=== PATIENT | male | born 1970 | race American Indian/Alaskan Native ===

== ENCOUNTER 2016-06-24 21:10 | Inpatient (IN) | payer OTHER ==
[2016-06-24] MEDS ORDERED: DUONEB 0.5 MG-3 MG/3 ML SOLN IH ONE ×2 (22:35→22:42)
[2016-06-24 23:34] LABS: Basophils % (Auto) 0.4 % (0.0-1.8); Eosinophils % (Auto) 0.1 % (0.0-4.3); Hematocrit 40.5 % (35.5-45.6); Hemoglobin 13.2 gm/dl (11.8-15.2); Mean Corpuscular HGB Conc 33 % (32-34); Mean Corpuscular Hemoglobin 26 pg (28-32); Mean Corpuscular Volume 81 fl (84-94); Platelet Count 222 K/mm3 (140-440); Red Blood Count 5.01 M/mm3 (3.65-5.03); Red Cell Distribution Width 14.6 % (13.2-15.2)
[2016-06-24 23:51] LABS: Anion Gap 19 mmol/L; BUN/Creatinine Ratio 6.66; Blood Urea Nitrogen 8 mg/dL (9-20); Calcium 9.3 mg/dL (8.4-10.2); Carbon Dioxide 27 mmol/L (22-30); Chloride 102.2 mmol/L (98-107); Glucose 98 mg/dL (75-100); Potassium 3.3 mmol/L (3.6-5.0); Sodium 145 mmol/L (137-145)
[2016-06-25 02:52] LABS: Creatine Kinase MB 1.2 ng/mL (0.0-4.0)
[2016-06-25 02:53] LABS: Alanine Aminotransferase 17 units/L (7-56); Albumin 4.3 g/dL (3.9-5); Albumin/Globulin Ratio 1.9 %; Alkaline Phosphatase 77 units/L (35-129); Bilirubin,Total 0.2 mg/dL (0.1-1.2); Creatine Kinase 109 units/L (55-170); Total Protein 6.6 g/dL (6.3-8.2)
[2016-06-25 02:54] LABS: Urine Drugs of Abuse Note Disclamer
[2016-06-25 03:03] LABS: Bilirubin,Urine NEG (Negative); Blood,Urine NEG (Negative); Ketones,Urine TR mg/dL (Negative); Leukocyte Esterase,Urine NEG (Negative); Mucus,Urine FEW /HPF; Nitrite,Urine NEG (Negative); Protein,Urine <15 mg/dL mg/dL (Negative); Urobilinogen,Urine < 2.0 mg/dL (<2.0)
[2016-06-25 03:04] LABS: Bilirubin,Direct < 0.2 mg/dL (0-0.2)
[2016-06-25] MEDS ORDERED: BABY ASPIRIN PO ONE (03:06)
[2016-06-25] MEDS ORDERED: K-DUR PO ONE (04:14)
--- NOTE | 2016-06-25 04:17 | Emergency Department Report ---
<HENRY RASMUSSEN - Last Filed: 06/25/16 04:11> ED Chest Pain HPI - General Chief Complaint: Dyspnea/Respdistress Stated Complaint: CHAD Time Seen by Provider: 06/25/16 01:41 Source: patient Mode of arrival: Ambulatory Limitations: No Limitations - History of Present Illness Initial Comments: 45-year-old male past medical history smoker, active use of crack cocaine, marijuana use presents with complaint of several episodes of chest pain at rest radiating from left sided chest to left arm today. Occurred at least 3-4 times last for several seconds and went away while at rest. Patient denies any associated diaphoresis but did state that he felt that his heart was racing during these episodes. Patient is awake alert and oriented 3 not in acute distress denies any current chest pain at this moment. Patient is accompanied by his mother. Patient denies any aspirin use. Patient states that he has actively been smoking crack cocaine for several years. denies any pleuritic chest pain. Denies any fever or chills. Denies any abdominal pain. Patient states that he gets frequent episodes of chest pain over the last several months but has not been to a doctor regarding this issue. MD Complaint: chest pain Onset/Timin -: days(s) Onset: during rest Pain Location: substernal, left chest Pain Radiation: LUE Severity: moderate Severity scale (0 -10): 0 Consistency: intermittent, now resolved Improves With: nothing Treatments Prior to Arrival: none Aspirin use within the Past 7 Days: (0) No - Related Data On Oral Contraceptives: No Allergies Allergy/AdvReac Type Severity Reaction Status Date / Time No Known Allergies Allergy Verified 06/24/16 21:47 JACEK score - Jacek Score Age > 65: (0) No Aspirin use within the Past 7 Days: (0) No 3 or more CAD Risk Factors: (0) No 2 or more Angina events in past 24 hrs: (1) Yes Known CAD with more than 50% Stenosis: (0) No Elevated Cardiac Markers: (0) No ST Deviation Greater than 0.5mm: (0) No JACEK Score: 1 ED Review of Systems ROS: Stated complaint: CHAD Other details as noted in HPI Constitutional: other. denies: chills, fever Eyes: denies: eye pain, eye discharge, vision change ENT: denies: ear pain, throat pain Respiratory: denies: cough, shortness of breath, wheezing Cardiovascular: chest pain. denies: palpitations Endocrine: no symptoms reported Gastrointestinal: denies: abdominal pain, nausea, diarrhea Genitourinary: denies: urgency, dysuria Musculoskeletal: denies: back pain, joint swelling, arthralgia Skin: denies: rash, lesions Neurological: denies: headache, weakness, paresthesias Psychiatric: denies: anxiety, depression Hematological/Lymphatic: denies: easy bleeding, easy bruising ED Past Medical Hx - Past Medical History Previous Medical History?: No - Surgical History Past Surgical History?: Yes Additional Surgical History: Pelvic Fx, Knot on chest - Social History Smoking Status: Current Every Day Smoker Substance Use Type: Alcohol, Cocaine, Marijuana, Other ED Physical Exam - General Limitations: No Limitations General appearance: alert, in no apparent distress - Head Head exam: Present: atraumatic, normocephalic - Eye Eye exam: Present: normal appearance, PERRL, EOMI - ENT ENT exam: Present: mucous membranes moist - Neck Neck exam: Present: normal inspection, full ROM - Respiratory Respiratory exam: Present: normal lung sounds bilaterally. Absent: respiratory distress - Cardiovascular Cardiovascular Exam: Present: regular rate, normal rhythm. Absent: systolic murmur, diastolic murmur, rubs, gallop - GI/Abdominal GI/Abdominal exam: Present: soft, normal bowel sounds - Rectal Rectal exam: Present: deferred - Extremities Exam Extremities exam: Present: normal inspection - Back Exam Back exam: Present: normal inspection - Neurological Exam Neurological exam: Present: alert, oriented X3, CN II-XII intact, normal gait - Psychiatric Psychiatric exam: Present: normal affect, normal mood - Skin Skin exam: Present: warm, dry, intact, normal color. Absent: rash ED Course Vital Signs 06/24/16 06/24/16 06/24/16 21:47 22:44 22:55 Temperature 98.1 F Pulse Rate 95 H Pulse Rate [ 89 92 H Posterior Bilateral Throughout] Respiratory 20 Rate Respiratory 18 19 Rate [Posterior Bilateral Throughout] Blood Pressure 142/98 [Right] O2 Sat by Pulse 100 Oximetry 06/24/16 06/25/16 06/25/16 23:22 05:40 05:44 Temperature 98 F Pulse Rate 86 77 Pulse Rate [ Posterior Bilateral Throughout] Respiratory 20 20 20 Rate Respiratory Rate [Posterior Bilateral Throughout] Blood Pressure 139/87 134/84 [Right] O2 Sat by Pulse 100 99 98 Oximetry ED Medical Decision Making - Lab Data Result diagrams: 06/24/16 23:11 06/24/16 23:11 - Medical Decision Making A/P: Cocaine induced angina, hypokalemia 1-EKG normal sinus rhythm no STEMI, chest x-ray unremarkable, first set of troponin and CK-MB normal 2-potassium 3.3 we will replete orally 3-I discussed case with Dr. Gee and hospitalist, plan to admit for cocaine induced angina and cardiac workup, patient has not yet had any cardiac workup 4-HEART Score 4 points Moderate Score (4-6 points) Risk of MACE of 12-16.6%. Based on patient's reports of angina 5-patient admitted to telemetry, Dr. Gee updated Critical care attestation.: If time is entered above; I have spent that time in minutes in the direct care of this critically ill patient, excluding procedure time. ED Disposition Clinical Impression: Chest pain, Cocaine abuse Disposition: OP ADMITTED IP TO THIS HOSP Is pt being admited?: Yes Does the pt Need Aspirin: Yes Condition: Stable <KRISS GEE - Last Filed: 06/25/16 06:06> ED Medical Decision Making - Lab Data Result diagrams: 06/24/16 23:11 06/24/16 23:11 ED Disposition Is pt being admited?: Yes Does the pt Need Aspirin: Yes
[2016-06-25] MEDS ORDERED: SODIUM CHLORIDE FLUSH SYRINGE 10 ML IV PRN (08:19)
[2016-06-25] MEDS ORDERED: TYLENOL PO PRN (08:19)
[2016-06-25] MEDS ORDERED: MILK OF MAGNESIA PO PRN (08:19)
[2016-06-25] MEDS ORDERED: DULCOLAX PR PRN (08:19)
[2016-06-25] MEDS ORDERED: MORPHINE IV PRN (08:19)
[2016-06-25] MEDS ORDERED: ZOFRAN IV PRN (08:19)
--- NOTE | 2016-06-25 08:35 | History and Physical Report ---
History of Present Illness Date of examination: 06/25/16 Date of admission: 06/25/16 03:56 Chief complaint: Chest pain History of present illness: Patient 45-year-old male with a history of tobacco abuse and cocaine abuse marijuana use alcohol use presents to the ED with a chief complaint of chest pain lasting for approximately 5-10 minutes rated 8 out of 10 on a scale. Occasionally radiating to the left side of chest associated with some shortness of breath but no diaphoresis no nausea vomiting. Was not associated with exertion. Patient has been having active cocaine smoking. This happened after a binge of cocaine smoking patient also complains of palpitations. Past History Past Medical History: denies: acute PA, atrial fib, anemia, arthritis, CAD, cancer, dialysis, GERD, hepatitis, liver disease, PVD, pulmonary embolism, seizures Past Surgical History: No surgical history Social history: single, smoking, alcohol abuse, full code, other (crack cocaine and marijuana) Family history: no significant family history Medications and Allergies Allergies Allergy/AdvReac Type Severity Reaction Status Date / Time No Known Allergies Allergy Verified 06/24/16 21:47 Active Meds: Active Medications Acetaminophen (Tylenol) 650 mg PO Q4H PRN PRN Reason: Pain MILD(1-3)/Fever >100.5/GOLD Aspirin (Ecotrin) 325 mg PO QDAY [facility] Bisacodyl (Dulcolax) 10 mg AR QDAY PRN PRN Reason: Constipation unrelieved by MOM Enoxaparin Sodium (Lovenox) 40 mg SUB-Q QDAY REPLACED BY [facility] Famotidine (Pepcid) 20 mg IV BID REPLACED BY [facility] Sodium Chloride (Nacl 0.9% 1000 Ml) 1,000 mls @ 100 mls/hr IV DIRECT [facility] Magnesium Hydroxide (Milk Of Magnesia) 30 ml PO Q4H PRN PRN Reason: Constipation Morphine Sulfate (Morphine) 2 mg IV Q4H PRN PRN Reason: Pain, Moderate (4-6) Ondansetron HCl (Zofran) 4 mg IV Q8H PRN PRN Reason: N/V unrelieved by Reglan Sodium Chloride (Sodium Chloride Flush Syringe 10 Ml) 10 ml IV PRN PRN PRN Reason: LINE FLUSH Review of Systems Constitutional: no weight loss, no weight gain, no night sweats, no anorexia, no poor appetite, no chronic pain, no other Ears, nose, mouth and throat: no deferred, no ear pain, no tinnitis, no mouth pain, no post-nasal drip, no headache, no neck fullness/pressure Cardiovascular: chest pain, rapid/irregular heart beat, lightheadedness, shortness of breath, no orthopnea, no palpitations, no edema, no syncope, no dyspnea on exertion, no paroxysmal nocturnal dyspnea, no claudication, no phlebitis, no high blood pressure, no leg edema, no decreased exercise tolerance Respiratory: no cough with sputum, no excessive sputum, no hemoptysis, no shortness of breath, no congestion, no wheezing, no pleurisy, no respiratory infections, no other Gastrointestinal: no abdominal pain, no nausea, no constipation, no change in bowel habits, no hematemesis, no early satiety, no heartburn, no early satiety Genitourinary Male: no hematuria, no urinary frequency, no impotence, no testicular pain, no testicular lump, no difficulties fathering child, no urinary retention Rectal: no pain, no discharge Musculoskeletal: no neck pain, no arm numbness/tingling, no low back pain, no morning stiffness, no muscle cramps, no myalgias, no atrophy, no limitation of motion, no frequent falls, no loss of height, no prior amputations, no arthritis Neurological: no paralysis, no tingling, no vertigo, no headaches, no convulsions, no aphasia, no change in speech, no gait dysfunction, no motor disturbance, no double vision, no loss of vision, no hearing difficulties Psychiatric: no sleep disturbances, no insomnia, no change in appetite Endocrine: no heat intolerance, no polydipsia Hematologic/Lymphatic: no easy bleeding, no lymphadenopathy, no lymphedema, no thrombophilia Allergic/Immunologic: no urticaria, no persistent infections, no gluten intolerance Exam - Constitutional Vitals: Temp Pulse Resp BP Pulse Ox 98.0 F 64 18 139/93 99 06/25/16 06:48 06/25/16 06:48 06/25/16 06:48 06/25/16 06:48 06/25/16 06:48 General appearance: Present: no acute distress, well-nourished - EENT Eyes: Present: PERRL ENT: hearing intact, clear oral mucosa - Neck Neck: Present: supple, normal ROM - Respiratory Respiratory effort: normal Respiratory: bilateral: CTA - Cardiovascular Heart Sounds: Present: S1 & S2. Absent: rub, click - Extremities Extremities: pulses symmetrical, No edema Peripheral Pulses: within normal limits - Abdominal General gastrointestinal: Present: soft, non-tender, non-distended, normal bowel sounds Male genitourinary: Present: normal - Integumentary Integumentary: Present: clear, warm, dry - Musculoskeletal Musculoskeletal: gait normal, strength equal bilaterally - Psychiatric Psychiatric: appropriate mood/affect, intact judgment & insight - Neurologic Neurologic: CNII-XII intact, moves all extremities Results - Labs CBC & Chem 7: 06/24/16 23:11 06/24/16 23:11 Labs: Laboratory Last Values WBC 6.0 K/mm3 (4.5-11.0) 06/24/16 23:11 RBC 5.01 M/mm3 (3.65-5.03) 06/24/16 23:11 Hgb 13.2 gm/dl (11.8-15.2) 06/24/16 23:11 Hct 40.5 % (35.5-45.6) 06/24/16 23:11 MCV 81 fl (84-94) L 06/24/16 23:11 MCH 26 pg (28-32) L 06/24/16 23:11 MCHC 33 % (32-34) 06/24/16 23:11 RDW 14.6 % (13.2-15.2) 06/24/16 23:11 Plt Count 222 K/mm3 (140-440) 06/24/16 23:11 Lymph % (Auto) 35.0 % (13.4-35.0) 06/24/16 23:11 [place] % (Auto) 11.3 % (0.0-7.3) H 06/24/16 23:11 Eos % (Auto) 0.1 % (0.0-4.3) 06/24/16 23:11 Baso % (Auto) 0.4 % (0.0-1.8) 06/24/16 23:11 Lymph # 2.1 K/mm3 (1.2-5.4) 06/24/16 23:11 [place] # 0.7 K/mm3 (0.0-0.8) 06/24/16 23:11 Eos # 0.0 K/mm3 (0.0-0.4) 06/24/16 23:11 Baso # 0.0 K/mm3 (0.0-0.1) 06/24/16 23:11 Seg Neutrophils % 53.2 % (40.0-70.0) 06/24/16 23:11 Seg Neutrophils # 3.2 K/mm3 (1.8-7.7) 06/24/16 23:11 Sodium 145 mmol/L (137-145) 06/24/16 23:11 Potassium 3.3 mmol/L (3.6-5.0) L 06/24/16 23:11 Chloride 102.2 mmol/L (98-107) 06/24/16 23:11 Carbon Dioxide 27 mmol/L (22-30) 06/24/16 23:11 Anion Gap 19 mmol/L 06/24/16 23:11 BUN 8 mg/dL (9-20) L 06/24/16 23:11 Creatinine 1.2 mg/dL (0.8-1.5) 06/24/16 23:11 Estimated GFR > 60 ml/min 06/24/16 23:11 BUN/Creatinine Ratio 6.66 % 06/24/16 23:11 Glucose 98 mg/dL (75-100) 06/24/16 23:11 Calcium 9.3 mg/dL (8.4-10.2) 06/24/16 23:11 Total Bilirubin 0.2 mg/dL (0.1-1.2) 06/25/16 02:17 Direct Bilirubin < 0.2 mg/dL (0-0.2) 06/25/16 02:17 Indirect Bilirubin 0.0 mg/dL 06/25/16 02:17 AST 16 units/L (5-40) 06/25/16 02:17 ALT 17 units/L (7-56) 06/25/16 02:17 Alkaline Phosphatase 77 units/L (35-129) 06/25/16 02:17 Total Creatine Kinase 109 units/L (55-170) 06/25/16 02:17 CK-MB (CK-2) 1.2 ng/mL (0.0-4.0) 06/25/16 02:17 Troponin T < 0.010 ng/mL (0.00-0.029) 06/25/16 02:17 Total Protein 6.6 g/dL (6.3-8.2) 06/25/16 02:17 Albumin 4.3 g/dL (3.9-5) 06/25/16 02:17 Albumin/Globulin Ratio 1.9 % 06/25/16 02:17 Urine Color Yellow (Yellow) 06/25/16 Unknown Urine Turbidity Turbid (Clear) 06/25/16 Unknown Urine pH 6.0 (5.0-7.0) 06/25/16 Unknown Ur Specific [place] 1.020 (1.003-1.030) 06/25/16 Unknown Urine Protein <15 mg/dl mg/dL (Negative) 06/25/16 Unknown Urine Glucose (UA) Neg mg/dL (Negative) 06/25/16 Unknown Urine Ketones Tr mg/dL (Negative) 06/25/16 Unknown Urine Blood Neg (Negative) 06/25/16 Unknown Urine Nitrite Neg (Negative) 06/25/16 Unknown Ur Reducing Substances Not Reportable 06/25/16 Unknown Urine Bilirubin Neg (Negative) 06/25/16 Unknown Urine Ictotest Not Reportable 06/25/16 Unknown Urine Urobilinogen < 2.0 mg/dL (<2.0) 06/25/16 Unknown Ur Leukocyte Esterase Neg (Negative) 06/25/16 Unknown Urine WBC (Auto) 13.0 /HPF (0.0-6.0) H 06/25/16 Unknown Urine RBC (Auto) 21.0 /HPF (0.0-6.0) 06/25/16 Unknown Urine Mucus Few /HPF 06/25/16 Unknown Urine Opiates Screen Presumptive negative 06/25/16 Unknown Urine Methadone Screen Presumptive negative 06/25/16 Unknown Ur Barbiturates Screen Presumptive negative 06/25/16 Unknown Ur Phencyclidine Scrn Presumptive negative 06/25/16 Unknown Ur Amphetamines Screen Presumptive positive 06/25/16 Unknown U Benzodiazepines Scrn Presumptive negative 06/25/16 Unknown Urine Cocaine Screen Presumptive positive 06/25/16 Unknown U Marijuana (THC) Screen Presumptive positive 06/25/16 Unknown Drugs of Abuse Note Disclamer 06/25/16 Unknown - Imaging and Cardiology EKG: image reviewed Chest x-ray: image reviewed Assessment and Plan Advance Directives: Yes VTE prophylaxis?: Chemical Plan of care discussed with patient/family: Yes - Patient Problems (1) Chest pain Current Visit: Yes Status: Acute Qualifiers: Chest pain type: C Plan to address problem: I suspect cocaine induced angina. Unlikely underlying coronary disease. Will bring in stress test echocardiogram. Patient has not had any cardiac workup in the past. Avoid beta marco a morphine for chest pain smoking cessation. (2) Cocaine abuse Current Visit: Yes Status: Acute Plan to address problem: Explained to patient about the high incidence of cocaine abuse and heart disease. Also smoking heart disease. Recommended smoking cessation nicotine patch Narcotics Anonymous.
[2016-06-25] MEDS ORDERED: NACL 0.9% 1000 ML 1,000 ML IV SCH (09:00)
[2016-06-25] MEDS: LOVENOX SUB-Q SCH (10:13)
[2016-06-25] MEDS: PEPCID IV SCH ×2 (10:13→21:31)
--- NOTE | 2016-06-25 12:16 | Admit Criteria Form ---
Admission Criteria Documentation: CARDIOLOGY GRG Clinical Indications for Admission to Inpatient Care ( Place 'X' for any and all applicable criteria): Hospital admission is needed for appropriate care of the patient because of ANY ONE of the following (1): [ ] I. Hemodynamic instability as indicated by ALL of the following (1)(2)(3) (4)(5) [ ]a) Vital signs or other findings not as expected for chronic patient condition or baseline [ ]b) Instability indicated by ANY ONE of the following: [ ]i) Hypotension [ ]ii) Symptomatic Tachycardia unresponsive to treatment ( e.g., analgesia, fluids, sedation as indicated) [ ]iii) Inadequate perfusion indicated by ANY ONE of the following: [ ] 1) Lactic acidosis (> 2 mmol/L) [ ] 2) New abnormal capillary refill (> 3 seconds) [ ] 3) Reduced urine output [ ] 4) New altered mental status [ ]iv) Orthostatic vital sign changes unresponsive to treatment (e.g., fluids) [ ]v) IV inotropic or vasopressor medication required to maintain adequate blood pressure or perfusion [ ] II. Severe heart failure as indicated by ANY ONE of the following(17)(18) [ ]a) Respiratory distress [ ]b) Hypotension [ ]c) Anasarca (refractory to outpatient therapy) [ ]d) Cardiac arrhythmias of immediate concern [ ]e) Myocardial ischemia [ ] III. Cardiac arrhythmias or findings of immediate concern indicated by ANY ONE of the following (19)(20): [ ] a) Heart rhythms that are inherently dangerous or unstable indicated by ANY ONE of the following (21)(22)(23): [ ] i) Resuscitated ventricular fibrillation or cardiac arrest [ ] ii) Ventricular escape rhythm [ ] iii) Sustained ventricular tachycardia (30 seconds or more of ventricular rhythm at greater than 100 beats per minute) [ ] iv) Nonsustained ventricular tachycardia and ANY ONE of the following: [ ] 1) Suspected cardiac ischemia as cause or consequence of ventricular tachycardia [ ] 2) In setting of acute myocarditis [ ] b) Unstable cardiac conduction defects indicated by ANY ONE of the following(23)(24)(25) [ ] i) Type II second-degree atrioventricular block [ ]ii) Third-degree atrioventricular block [ ]iii) New-onset left bundle branch block with suspected myocardial ischemia [ ]c) Any heart rhythm and ANY ONE of the following (21)(22)(26)(27) (28) [ ] i) Continuous long-term ECG monitoring needed (e.g., initiation of drug requiring monitoring for more than 24 hours) [ ] ii) Patient has automatic implanted cardioverter defibrillator that is repeatedly firing, malfunctioning, or in need of immediate adjustment of settings beyond the scope of ambulatory or observation care [ ]d) Heart rhythms of concern due to ANY ONE of the following: [ ] i) Hypotension [ ] ii) Respiratory distress [ ] iii) Association with other significant symptoms (e.g., bradycardia with syncope or ongoing dizziness, supraventricular tachycardia with chest pain (14)(15)(17) [ ] IV. Monitoring for cardiac contusion beyond the scope of observation care needed [A](30)(31)(32) [ ] V. Surgical or device complication (e.g., valve replacement complication , pacemaker dysfunction) (35)(41)(44)(45)(46) [ ] . Inpatient palliative care needed. [B](49) Also use Inpatient Palliative Care Criteria [ ] VII. Nonbacterial thrombotic (marantic) endocarditis (36)(43)(47)(48) [X] VIII. Cardiology condition, symptom, or finding for which emergency and observation care has failed or are not considered appropriate. [ ] IX. Acute valvular disease requiring inpatient as indicated by ANY ONE of the following (41) [ ]a) Acute valvular regurgitation (42) [ ]b) Noninfectious valvulitis (43) [ ]c) Obstructive valve thrombosis [ ]d) Paravalvular leak [ ]e) Other significant valvular disorder remaining after emergency or observation level of care (as appropriate) [ ]X. Pericardial disease requiring inpatient treatment as indicated by ANY ONE of the following (33)(34)(35)(36)(37) [ ]a) Suspected tamponade (38)(39)(40) [ ]b) Hemopericardium [ ]c) Other significant pericardial disorder remaining after emergency or observation level of care (as appropriate) [ ] XI. Cardiac ischemia beyond scope of emergency and observation care. [ ] XII. Hypertension requiring inpatient treatment as indicated by ANY ONE of the following (6)(7)(8) [ ]a) SBP greater than 220 mm Hg or DBP greater than 120 mmHg despite treatment [ ]b) SBP greater than 140 mm Hg or DBP greater than 100 mm Hg with evidence of acute end organ damage as indicated by ANY ONE of the following [ ] i) Altered mental status [ ] ii) Acute renal failure as indicated by new onset of ANY ONE of the following (9)(10)(11)(12)(13) [ ]1) 3-fold rise in serum creatinine from baseline [ ]2) Serum creatinine greater than 4 mg/dL ( 354 micromoles/L) with acute rise greater than 0.5 mg/dL (44.2 micromoles/L) [ ]3) Reduction of more than 75% in estimated glomerular filtration rate from baseline [ ]4) Estimated glomerular filtration rate less than 35 mL/min/1.73m2 (0.59 mL/sec/1.73m2) in child up to 18 years of age [ ]5) Cessation of urine output indicated by ALL of the following [ ]A. Adequate volume status [ ]B. Inadequate urine output as indicated by ANY ONE of the following [ ]a. Urine output less than 0.3 mL/kg/hr for 24 hours [ ]b. Anuria (urine output less than 0.1 mL/kg/hr) for 12 hours [ ] iii) Aortic dissection [ ] iv) Myocardial Ischemia [ ] v) Left ventricular heart failure [ ]vi) Retinal Hemorrhage [ ]vii) Other significant finding [ ]c) Hypertension in child requiring inpatient treatment as indicated by ALL of the following(14)(15)(16) [ ] i) Outpatient treatment not effective, not available, or not appropriate [ ]ii) SBP or DBP greater than 95th percentile for age [ ]iii) Evidence of acute end organ damage as indicated by ANY ONE of the following [ ]1) Altered mental status [ ]2) Acute renal failure as indicated by new onset of ANY ONE of the following(9)(10)(11)(12)(13) [ ]A. 3-fold rise in serum creatinine from baseline [ ]B. Serum creatinine greater than 4 mg/dL (354 micromoles/L) with acute rise greater than 0.5 mg/dL (44.2 micromoles/L) [ ]C. Reduction of more than 75% in estimated glomerular filtration rate from baseline [ ]D. Estimated glomerular filtration rate less than 35 mL/min/1.73m2 (0.59 mL/sec/1.73m2) in child up to 18 years of age [ ]E. Cessation of urine output indicated by ALL of the following [ ]a. Adequate volume status [ ]b. Inadequate urine output as indicated by ANY ONE of the following [ ]i) Urine output less than 0.3 mL/kg/hr for 24 hours [ ]ii) Anuria ( urine output less than 0.1 mL/kg/hr) for 12 hours [ ]3) Severe headache [ ]4) Visual disturbance [ ]5) Retinal hemorrhage [ ]6) Other significant finding [ ]XIII. Complications of transplanted heart indicated by ANY ONE of the following(61): [ ]a) Acute graft rejection requiring inpatient management (eg, intravenous immunosuppression)(62)(63) [ ]b) Acute graft heart failure indicated by ANY ONE of the following(64): [ ]i) Hemodynamic instability [ ]ii) Cardiac arrhythmias of immediate concern [ ]iii) Pulmonary edema that is very severe (eg, mechanical ventilation needed, imminent or likely, need for 100% oxygen to keep oxygen saturation above 90%) [ ]iv) Pulmonary edema that is persistent as indicated by ALL of the following: [ ]1) New need for oxygen therapy to keep oxygen saturation above 90% (or increased FiO2 need from baseline) [ ]2) Has not improved sufficiently with emergency department or observation care IV diuretics or other heart failure treatments[E] [ ]v) Altered mental status that is severe or persistent [ ]vi) Increased creatinine (new on laboratory test) with reduction of more than 50% in estimated glomerular filtration rate from baseline [ ]vii) Progressively (ongoing) rising creatinine (known from past laboratory test) with reduction of more than 25% in estimated glomerular filtration rate from baseline [ ]viii) Acute renal failure [ ]ix) Acute peripheral ischemia (eg, examination shows pulseless, cool, mottled, or cyanotic extremity) [ ]x) Pulmonary artery catheter monitoring needed [ ]xi) Other sign or symptom of heart failure requiring inpatient treatment (ie, too severe or not responsive to outpatient and observation care treatment) [ ]c) Infection requiring inpatient management (eg, Hemodynamic instability, need for intravenous antimicrobial treatment)(66)(67)(68)(69)(70) [ ]d) Cardiac allograft vasculopathy requiring inpatient management ( eg evidence of cardiac ischemia)(71) [ ]e) Other complication of transplanted heart (eg, stroke, severe pulmonary hypertension, severe valvular dysfunction) requiring inpatient management(72) The original [facility] [employer] content created by [facility] has been revised. The portions of the content which have been revised are identified through the use of italic text or in bold, and [facility] has neither reviewed nor approved the modified material. All other unmodified content is copyright [facility] [employer]. Please see references footnoted in the original [facility] [employer] edition 2016 Admission Criteria Met: Yes
[2016-06-25 13:44] LABS: Creatine Kinase MB 1.1 ng/mL (0.0-4.0)
[2016-06-25 13:46] LABS: Creatine Kinase 85 units/L (55-170)
[2016-06-25 15:26] LABS: Creatine Kinase 78 units/L (55-170)
--- NOTE | 2016-06-25 19:29 | Treadmill Report ---
INDICATION FOR PROCEDURE: Chest pain. ORDERING PHYSICIAN: Antony Rodriguez MD FINDINGS: There is no scintigraphic evidence of myocardial ischemia. The left ventricular cavity appears to be borderline dilated. There is mild global left ventricular hypokinesis. The left ventricular ejection fraction is measured at 42%. CONCLUSION: 1. No scintigraphic evidence of myocardial ischemia. 2. Mildly dilated and hypokinetic left ventricle with ejection fraction measured at 42%. Correlation with a transthoracic echocardiogram is warranted. JOB# [id number] SIRISHA/YAMINI
[2016-06-26 07:59] LABS: Alanine Aminotransferase 17 units/L (7-56); Albumin 3.2 g/dL (3.9-5); Albumin/Globulin Ratio 1.1 %; Alkaline Phosphatase 64 units/L (35-129); Anion Gap 13 mmol/L; BUN/Creatinine Ratio 5.45; Bilirubin,Total 0.3 mg/dL (0.1-1.2); Blood Urea Nitrogen 6 mg/dL (9-20); Calcium 8.6 mg/dL (8.4-10.2); Carbon Dioxide 27 mmol/L (22-30); Chloride 104.1 mmol/L (98-107); Glucose 95 mg/dL (75-100); Potassium 4.1 mmol/L (3.6-5.0); Sodium 140 mmol/L (137-145); Total Protein 6.1 g/dL (6.3-8.2)
[2016-06-26] MEDS: PEPCID IV SCH (09:28)
[2016-06-26] MEDS: LOVENOX SUB-Q SCH (09:28)
[2016-06-26] MEDS ORDERED: ECOTRIN PO SCH (10:00)
--- NOTE | 2016-06-26 15:48 | Discharge Summary ---
Providers - Providers Date of Admission: 06/25/16 03:56 Date of discharge: 06/26/16 Attending physician: ARIS KINGSTON 06/25/16 Consult to Cardiac Rehabilitation [CONS] Routine Reason For Exam: Phase I Primary care physician: [facility] Hospitalization Reason for admission: test pain Condition: Good Hospital course: Patient presented to ED after cocaine binge. Patient developed cocaine induced angina. Along with other narcotics marijuana and alcohol tobacco. Patient was brought in has stress tests done which was significant for ejection fraction of 45% but no clear ischemia they recommended DYLAN. Patient was unable to get DYLAN secondary to eating and anxiety. We did had a conference with cardiology and thought it was fair patient can be set up as outpatient echocardiogram. Patient was chest pain-free throughout and ruled out via cardiac isoenzymes and no EKG changes. She was discharged in stable condition patient has been educated that nausea and about stopping all narcotics. And tobacco cessation. Patient we thought could get by without DYLAN. Patient knows if he does more cocaine he would Disposition: DISCHARGED TO HOME OR SELFCARE - Discharge Diagnoses (1) Chest pain Status: Acute Qualifiers: Chest pain type: C Comment: Chest pain-free ruled out for myocardial infarction with cocaine induced angina (2) Cocaine abuse Status: Acute Comment: Narcotics Anonymous tobacco cessation. Core Measure Documentation - Palliative Care Palliative Care/ Comfort Measures: Not Applicable - Core Measures Any of the following diagnoses?: none Exam - Constitutional Vitals: Temp Pulse Resp BP Pulse Ox 97.8 F 79 18 131/80 100 06/26/16 12:00 06/26/16 12:00 06/26/16 12:00 06/26/16 12:00 06/26/16 12:00 General appearance: Present: no acute distress, well-nourished - EENT Eyes: Present: PERRL ENT: hearing intact, clear oral mucosa - Neck Neck: Present: supple, normal ROM - Respiratory Respiratory effort: normal Respiratory: bilateral: CTA - Cardiovascular Heart Sounds: Present: S1 & S2. Absent: rub, click - Extremities Extremities: pulses symmetrical, No edema Peripheral Pulses: within normal limits - Abdominal General gastrointestinal: Present: soft, non-tender, non-distended, normal bowel sounds Male genitourinary: Present: normal - Integumentary Integumentary: Present: clear, warm, dry - Musculoskeletal Musculoskeletal: gait normal, strength equal bilaterally - Psychiatric Psychiatric: appropriate mood/affect, intact judgment & insight - Neurologic Neurologic: CNII-XII intact, moves all extremities Plan Activity: no restrictions Weight Bearing Status: Full Weight Bearing Diet: regular Follow up with: PRIMARY CARE, [Primary Care Provider] - 3-5 Days
[2016-06-26 17:45] VITALS: BP 131/81
[2016-06-26] MEDS ORDERED: PEPCID PO SCH (22:00)
== END 2016-06-26 18:20 | disposition home or self-care (01) | DRG 313 ==
LOC: ED 21:10 → 4A 06-25 03:56
PROVIDERS: ADMIT Internal Medicine; ATTEND Internal Medicine
DX: R07.9 Chest pain, unspecified (principal); F14.10 Cocaine abuse, uncomplicated; F17.200 Nicotine dependence, unspecified, uncomplicated; F10.20 Alcohol dependence, uncomplicated; F41.9 Anxiety disorder, unspecified
CPT/HCPCS: 36415; 71020; 78452; 80048; 80053; 80074; 80307; 81001; 82550; 82553; 84484; 85025; 93005; 93010; 93017; 93306; 94640; 99406; A9502; J1650; J7030

== ENCOUNTER 2020-04-28 12:29 | Inpatient (IN) | payer OTHER ==
--- NOTE | 2020-04-28 12:45 | Event Note ---
ED Screening Note Date of service: 04/28/20 Time: 12:44 ED Screening Note: 49-year-old -Wel[place] male presents to the emergency room for shortness of breath . No loss of taste or smell. It was noted that patient was tachycardic in triage. Review of chart noted that patient had cocaine abuse marijuana abuse and a feta means. Patient also has lower leg swelling both ankles. This initial assessment/diagnostic orders/clinical plan/treatment(s) is/are subject to change based on patients health status, clinical progression and re- assessment by fellow clinical providers in the ED. Further treatment and workup at subsequent clinical providers discretion. Patient/guardian urged not to elope from the ED as their condition may be serious if not clinically assessed and managed. Initial orders include: EKG, CBC CMP and chest x-ray
--- NOTE | 2020-04-28 13:23 | XRay Report ---
CHEST PA AND LATERAL VIEWS INDICATION: sob, cough. COMPARISON: 06/24/2016 FINDINGS: Support devices: None Heart: Borderline enlarged, increased in size from the previous exam. Lungs/Pleura: Today's exam shows pleural-parenchymal disease in the right mid and lower lung, not dolly arent 4 years ago. There also appear to be minimal bilateral pleural effusions. IMPRESSION: 1. Very small bilateral pleural effusions, with minimal parenchymal disease in the right base. Appear ance could be consistent with mild congestive failure or developing pneumonia. Suggest close follow-u p. Signer Name: Lloyd Paul MD Signed: 04/28/2020 1:19 PM Workstation Name: [id number]
[2020-04-28 13:57] LABS: Benzodiazepines Screen,Urine Negative; Cocaine Screen,Urine Negative; Methadone Screen,Urine Negative; Opiate Screen,Urine Negative
[2020-04-28 14:12] LABS: Amphetamine Screen,Urine Positive; Cannabinoid Screen,Urine Positive
[2020-04-28 14:23] LABS: Basophils % (Auto) 0.6 % (0.0-1.8); Eosinophils % (Auto) 0.1 % (0.0-4.3); Hematocrit 45.4 % (35.5-45.6); Hemoglobin 14.9 gm/dl (11.8-15.2); Lymphocytes # (Auto) 1.7 K/mm3 (1.2-5.4); Lymphocytes % (Auto) 25.4 % (13.4-35.0); Mean Corpuscular HGB Conc 33 % (32-34); Mean Corpuscular Volume 84 fl (84-94); Monocytes # (Auto) 0.6 K/mm3 (0.0-0.8); Monocytes % (Auto) 8.6 % (0.0-7.3); Platelet Count 225 K/mm3 (140-440); Red Blood Count 5.39 M/mm3 (3.65-5.03); Red Cell Distribution Width 15.3 % (13.2-15.2)
[2020-04-28 14:47] LABS: Alanine Aminotransferase 95 units/L (7-56); Albumin 3.8 g/dL (3.9-5); BUN/Creatinine Ratio 13; Blood Urea Nitrogen 18 mg/dL (9-20); Calcium 8.8 mg/dL (8.4-10.2); Hemolysis Index 57
--- NOTE | 2020-04-28 20:42 | Emergency Department Report ---
ED Shortness of Breath HPI - General Chief Complaint: Dyspnea/Respdistress Stated Complaint: BREATHING PROBLEMS Time Seen by Provider: 04/28/20 20:13 Source: patient Mode of arrival: Ambulatory Limitations: No Limitations - History of Present Illness Initial Comments: 49-year-old male presents to ED with progressive shortness of breath over the last 2 weeks. Patient also reports bilateral lower extremity swelling. Patient denies any history of congestive heart failure. He reports he has not seen a physician since his last admission here in 2017. Patient does report tobacco and drug use (methamphetamines). Patient reports chest pain at triage, however he now denies any chest pain, only states that he is having dyspnea on exertion. Patient reports cough, denies fever. Denies any loss of smell or taste. MD Complaint: shortness of breath -: week(s) (2) Severity: moderate Consistency: constant Improves With: rest Worsens With: exertion Associated Symptoms: chest pain Treatments Prior to Arrival: none - Related Data Home Oxygen Therapy: No Previous Rx's Medication Instructions Recorded Last Taken Type Aspirin EC [Ecotrin] 325 mg PO QDAY tablet 06/26/16 Unknown Rx Allergies Allergy/AdvReac Type Severity Reaction Status Date / Time No Known Allergies Allergy Verified 06/24/16 21:47 ED Review of Systems ROS: Stated complaint: BREATHING PROBLEMS Other details as noted in HPI Comment: All other systems reviewed and negative Constitutional: denies: chills, fever Respiratory: cough, orthopnea, SOB with exertion Cardiovascular: chest pain Gastrointestinal: denies: nausea, vomiting Musculoskeletal: other (Reports lower extremity edema) ED Past Medical Hx - Past Medical History Previous Medical History?: No Hx Congestive Heart Failure: No Hx Diabetes: No Hx Asthma: No Hx COPD: No - Surgical History Past Surgical History?: Yes Additional Surgical History: Pelvic Fx, Knot on chest - Social History Smoking Status: Current Every Day Smoker Substance Use Type: None - Medications Home Medications: Home Medications Medication Instructions Recorded Confirmed Last Taken Type Aspirin EC [Ecotrin] 325 mg PO QDAY tablet 06/26/16 Unknown Rx ED Physical Exam - General Limitations: No Limitations General appearance: alert, in no apparent distress - Head Head exam: Present: atraumatic, normocephalic - Eye Eye exam: Present: normal appearance, EOMI - ENT ENT exam: Present: mucous membranes moist - Neck Neck exam: Present: normal inspection - Respiratory Respiratory exam: Present: normal lung sounds bilaterally. Absent: respiratory distress - Cardiovascular Cardiovascular Exam: Present: normal rhythm, tachycardia - GI/Abdominal GI/Abdominal exam: Present: soft. Absent: distended, tenderness - Extremities Exam Extremities exam: Present: other (1+ pitting edema bilaterally) - Neurological Exam Neurological exam: Present: alert, oriented X3 - Psychiatric Psychiatric exam: Present: normal affect, normal mood - Skin Skin exam: Present: warm, dry, intact, normal color ED Course Vital Signs 04/28/20 04/28/20 12:40 20:59 Temperature 97.7 F 98.2 F Pulse Rate 110 H 106 H Respiratory 22 18 Rate Blood Pressure 122/84 Blood Pressure 124/87 [Left] O2 Sat by Pulse 100 100 Oximetry ED Medical Decision Making - Lab Data Result diagrams: 04/28/20 13:11 04/28/20 21:37 - EKG Data -: EKG Interpreted by Dc EKG shows normal: sinus rhythm, axis, intervals, QRS complexes, ST-T waves Rate: tachycardia (rate 108) - EKG Data Interpretation: no acute changes - Radiology Data Radiology results: report reviewed, image reviewed - Medical Decision Making 49-year-old male presents to ED with 2-week history of orthopnea, dyspnea on exertion, bilateral lower extremity edema. Patient appears to have new onset CHF, with new cardiomegaly, bilateral pleural effusions, and evidence of pulmonary edema on chest x-ray. BNP is elevated. EKG shows no ST changes. Troponin is negative. Patient given Lasix 40 mg IV. Patient will be admitted to hospitalist, Dr. Curran, for further management. - Differential Diagnosis ACS, pneumonia, CHF Critical care attestation.: If time is entered above; I have spent that time in minutes in the direct care of this critically ill patient, excluding procedure time. ED Disposition Clinical Impression: New onset of congestive heart failure, Chest pain Disposition: [id number] OP ADMIT IP TO THIS HOSP Is pt being admited?: Yes Condition: Stable Time of Disposition: 22:51
[2020-04-28] MEDS ORDERED: FUROSEMIDE 40 MG/4 ML INJ IV ONE (21:53)
[2020-04-28] MEDS ORDERED: MORPHINE 2 MG/1 ML INJ IV PRN (23:43)
[2020-04-28] MEDS ORDERED: ACETAMINOPHEN 325 MG TAB PO PRN (23:43)
[2020-04-28] MEDS ORDERED: MAGNESIUM HYDROXIDE (MOM) ORAL LIQD UDC PO PRN (23:43)
[2020-04-28] MEDS ORDERED: ONDANSETRON 4 MG/2 ML INJ IV PRN (23:43)
--- NOTE | 2020-04-28 23:57 | History and Physical Report ---
History of Present Illness Date of examination: 04/28/20 Date of admission: 04/28/20 22:52 Chief complaint: shortness of Breath Lower extremity swelling History of present illness: 49-year-old male presenting to the emergency room today complaining of shortness of breath for about 2 weeks. He has also been having bilateral lower extremity swelling over the same period of time. He has had occasional cough which is nonproductive. Patient denies any fever or chills, no nausea vomiting, no headache or dizziness, no diaphoresis. He denies any sick contacts and no recent travel. Denies any contact with anyone with COVID-19. Patient indicates that she daily tobacco smoker and also uses methamphetamine. He had some mild chest discomfort upon arrival in the emergency room however chest pain has resolved. Work-up in the emergency room reveals pleural effusion pulmonary edema. Labs were positive for methamphetamine and marijuana. He also had elevated BNP. Patient admitted with CHF - new onset. Past History Past Medical History: No medical history Past Surgical History: No surgical history Social history: smoking (Current daily smoker) Family history: no significant family history Medications and Allergies Allergies Allergy/AdvReac Type Severity Reaction Status Date / Time No Known Allergies Allergy Verified 06/24/16 21:47 Home Medications Medication Instructions Recorded Confirmed Last Taken Type Aspirin EC [Ecotrin] 325 mg PO QDAY tablet 06/26/16 Unknown Rx Active Meds: Active Medications Acetaminophen (Acetaminophen 325 Mg Tab) 650 mg PO Q4H PRN PRN Reason: Pain MILD(1-3)/Fever >100.5/GOLD Furosemide (Furosemide 40 Mg/4 Ml Inj) 40 mg IV BID@0600,1800 [facility] Heparin Sodium (Porcine) (Heparin 5,000 Unit/1 Ml Vial) 5,000 unit SUB-Q Q8HR [facility] Magnesium Hydroxide (Magnesium Hydroxide (Mom) Oral Liqd Udc) 30 ml PO Q4H PRN PRN Reason: Constipation Morphine Sulfate (Morphine 2 Mg/1 Ml Inj) 2 mg IV Q4H PRN PRN Reason: Pain, Moderate (4-6) Ondansetron HCl (Ondansetron 4 Mg/2 Ml Inj) 4 mg IV Q8H PRN PRN Reason: Nausea And Vomiting Sodium Chloride (Sodium Chloride 0.9% 10 Ml Flush Syringe) 10 ml IV BID [place] Sodium Chloride (Sodium Chloride 0.9% 10 Ml Flush Syringe) 10 ml IV PRN PRN PRN Reason: LINE FLUSH Review of Systems Constitutional: no fever, no chills Ears, nose, mouth and throat: no nasal congestion, no sore throat Cardiovascular: orthopnea, leg edema, no chest pain, no palpitations Respiratory: shortness of breath, no cough Gastrointestinal: no abdominal pain, no nausea, no vomiting, no diarrhea Genitourinary Male: no dysuria, no hematuria, no nocturia Musculoskeletal: no neck pain, no low back pain Integumentary: no rash, no pruritis Neurological: no headaches, no confusion Psychiatric: no anxiety, no depression Exam - Constitutional Vitals: Temp Pulse Resp BP Pulse Ox 98.2 F 106 H 18 124/87 100 04/28/20 20:59 04/28/20 20:59 04/28/20 20:59 04/28/20 20:59 04/28/20 20:59 General appearance: Present: no acute distress, well-nourished - EENT Eyes: Present: PERRL, EOM intact. Absent: scleral icterus ENT: hearing intact, clear oral mucosa, dentition normal - Neck Neck: Present: supple, normal ROM - Respiratory Respiratory effort: normal Respiratory: bilateral: rales - Cardiovascular Rhythm: regular Heart Sounds: Present: S1 & S2. Absent: gallop, systolic murmur, diastolic murmur, rub - Extremities Extremities: no ischemia, pulses intact, pulses symmetrical, normal temperature, normal color, Full ROM Extremity abnormal: edema (2+ bilateral lower extremity edema) Peripheral Pulses: within normal limits - Abdominal General gastrointestinal: Present: soft, non-tender, non-distended, normal bowel sounds. Absent: mass - Integumentary Integumentary: Present: clear, warm, dry. Absent: rash - Musculoskeletal Musculoskeletal: strength equal bilaterally - Psychiatric Psychiatric: appropriate mood/affect, intact judgment & insight, memory intact, cooperative - Neurologic Neurologic: CNII-XII intact, no focal deficits, moves all extremities HEART Score - HEART Score Troponin: Troponin T < 0.010 ng/mL (0.00-0.029) 04/28/20 21:37 Results - Labs CBC & Chem 7: 04/28/20 13:11 04/28/20 21:37 Labs: Abnormal lab results 04/28/20 04/28/20 04/28/20 Range/Units 13:11 13:11 13:11 RBC 5.39 H (3.65-5.03) M/mm3 RDW 15.3 H (13.2-15.2) % [place] % (Auto) 8.6 H (0.0-7.3) % Potassium 5.4 H (3.6-5.0) mmol/L Creatinine 1.4 H (0.8-1.3) mg/dL AST 58 H (5-40) units/L ALT 95 H (7-56) units/L NT-Pro-B Natriuret Pep 5653 H (0-900) pg/mL Total Protein 5.8 L (6.3-8.2) g/dL Albumin 3.8 L (3.9-5) g/dL Assessment and Plan - Patient Problems (1) New onset of congestive heart failure Current Visit: Yes Status: Acute Plan to address problem: Patient admitted to telemetry and placed on diuretics. Will monitor inputs and outputs and also monitor daily weight. Patient be scheduled for echocardiogram. We will request cardiology evaluation and recommendation. (2) Chest pain Current Visit: Yes Status: Acute Plan to address problem: Chest pain is resolved however we will check serial cardiac enzymes. We await further evaluation and recommendation by cardiology. (3) Methamphetamine abuse Current Visit: Yes Status: Acute Plan to address problem: Counseled on quitting illicit drug use. (4) Elevated liver enzymes Current Visit: Yes Status: Acute Plan to address problem: We will monitor LFTs. Consult will be placed to gastroenterology for evaluation as needed. (5) DVT prophylaxis Current Visit: Yes Status: Acute Plan to address problem: Patient placed on subcutaneous heparin. (6) Full code status Current Visit: Yes Status: Acute Plan to address problem: Patient is a full code.
[2020-04-29] MEDS: FUROSEMIDE 40 MG/4 ML INJ IV SCH ×2 (05:16→17:36)
[2020-04-29] MEDS: HEPARIN 5,000 UNIT/1 ML VIAL SUB-Q SCH ×3 (05:19→22:14)
[2020-04-29 08:51] LABS: Basophils # (Auto) 0.2 K/mm3 (0.0-0.1); Basophils % (Auto) 2.3 % (0.0-1.8); Eosinophils % (Auto) 0.2 % (0.0-4.3); Hematocrit 47.2 % (35.5-45.6); Hemoglobin 15.5 gm/dl (11.8-15.2); Lymphocytes # (Auto) 2.1 K/mm3 (1.2-5.4); Lymphocytes % (Auto) 31.5 % (13.4-35.0); Mean Corpuscular HGB Conc 33 % (32-34); Mean Corpuscular Volume 84 fl (84-94); Monocytes # (Auto) 0.4 K/mm3 (0.0-0.8); Monocytes % (Auto) 6.6 % (0.0-7.3); Platelet Count 226 K/mm3 (140-440); Red Blood Count 5.65 M/mm3 (3.65-5.03)
[2020-04-29 09:07] LABS: INR 1.21 (0.87-1.13)
[2020-04-29 09:18] LABS: Calcium 8.8 mg/dL (8.4-10.2)
--- NOTE | 2020-04-29 11:40 | Event Note ---
Date: 04/29/20 full consult dictated thx
--- NOTE | 2020-04-29 13:14 | Consultation ---
REFERRING PHYSICIAN: Dr. Lopez. REASON FOR CONSULTATION: ____ shortness of breath, edema. HISTORY OF PRESENT ILLNESS: The patient is a pleasant 49-year-old -[place] gentleman brought to the Emergency Room for shortness of breath for 2 weeks. No COVID-19 contacts. No fevers or chills. States he smokes and uses methamphetamine, some chest pain. Prior to arrival to the Emergency Room, no current chest pain, seen on telemetry. No syncope or presyncope, no abdominal pain, hematochezia, melena or hemoptysis. No skin rashes. No cold or heat intolerance. PAST MEDICAL HISTORY: None known. PAST SURGICAL HISTORY: None known. SOCIAL HISTORY: Smoking and methamphetamine. FAMILY HISTORY: No family history of premature heart disease or sudden cardiac . ALLERGIES: No known allergies. MEDICATIONS: Inpatient and outpatient medications are reviewed. REVIEW OF SYSTEMS: As per HPI. PHYSICAL EXAMINATION: VITAL SIGNS: Blood pressure is 120/80. Tele reveals sinus rhythm in the low 100s. O2 sat is 99% on 2 liters. HEENT: Sclerae are anicteric. PERRL. NECK: Supple, no masses, 2+ JVD. CHEST: Decreased breath sounds at bilateral bases. Overall poor to moderate air movement. CARDIOVASCULAR: Tachy, S1 and S2. ABDOMEN: Soft, nontender. EXTREMITIES: 2+ pitting edema. SKIN: Intact. No rashes. IMAGING STUDIES: Chest x-ray shows small bilateral pleural effusions with enhanced interstitial markings. LABORATORY DATA: First troponin is negative. Positive for marijuana and amphetamines in the urine drug screen. Creatinine is 1.5, sodium is 142, hemoglobin 15.5, hematocrit 47.2, platelets 226. A preliminary look at the echo reveals an EF of 15-20%. The patient was having an echocardiogram performed while I was examining him. ASSESSMENT: In summary, the patient is a pleasant 49-year-old -[place] gentleman. 1. Acute hypoxemic respiratory failure due to acute heart failure, with reduced ejection fraction, ejection fraction found to be 15-20%. The etiology of which is unclear. Continue IV Lasix. Given mildly elevated creatinine, I am hesitant to add FAHAD or ARB. We will add low-dose beta-blockade, continue IV diuresis. Once he is euvolemic, we will consider ischemic workup, stress test versus left heart catheterization. My findings and plan of care discussed at length with the patient. All questions and concerns were addressed. Discussed smoking cessation for some 5 minutes. JOB# [id number] SBM/NTS
[2020-04-29] MEDS: carvediloL 3.125 MG TAB PO SCH ×2 (13:16→22:13)
--- NOTE | 2020-04-29 13:29 | Progress Note ---
Assessment and Plan - Patient Problems (1) New onset of congestive heart failure Current Visit: Yes Status: Acute Plan to address problem: Patient admitted to telemetry and placed on diuretics. Will monitor inputs and outputs and also monitor daily weight. Patient be scheduled for echocardiogram. We will request cardiology evaluation and recommendation. (2) Chest pain Current Visit: Yes Status: Acute Plan to address problem: Chest pain is resolved however we will check serial cardiac enzymes. We await further evaluation and recommendation by cardiology. (3) Methamphetamine abuse Current Visit: Yes Status: Acute Plan to address problem: Counseled on quitting illicit drug use. (4) Elevated liver enzymes Current Visit: Yes Status: Acute Plan to address problem: We will monitor LFTs. Consult will be placed to gastroenterology for evaluation as needed. (5) DVT prophylaxis Current Visit: Yes Status: Acute Plan to address problem: Patient placed on subcutaneous heparin. (6) Full code status Current Visit: Yes Status: Acute Plan to address problem: Patient is a full code. Subjective Date of service: 04/29/20 Principal diagnosis: New onset CHF Interval history: 49-year-old male presenting to the emergency room today complaining of shortness of breath for about 2 weeks. He has also been having bilateral lower extremity swelling over the same period of time. He has had occasional cough which is nonproductive. Patient denies any fever or chills, no nausea vomiting, no headache or dizziness, no diaphoresis. He denies any sick contacts and no recent travel. Denies any contact with anyone with COVID-19. Patient indicates that she daily tobacco smoker and also uses methamphetamine. He had some mild chest discomfort upon arrival in the emergency room however chest pain has resolved. Work-up in the emergency room reveals pleural effusion pulmonary edema. Labs were positive for methamphetamine and marijuana. He also had elevated BNP. Patient admitted with CHF - new onset. 04/29/2020 Symptomatically better Objective - Constitutional Vitals: Vital Signs - 12hr 04/29/20 04/29/20 04/29/20 04:31 08:31 12:26 Temperature 98.4 F 98.6 F 98.6 F Pulse Rate 104 H 108 H 107 H Respiratory 20 22 22 Rate Blood Pressure 137/90 120/84 121/84 O2 Sat by Pulse 100 99 100 Oximetry General appearance: Present: no acute distress, well-nourished - EENT Eyes: PERRL, EOM intact ENT: hearing intact, clear oral mucosa Ears: bilateral: normal - Neck Neck: supple, normal ROM - Respiratory Respiratory effort: normal Respiratory: bilateral: CTA - Breasts Breasts: normal - Cardiovascular Heart rate: 78 Rhythm: regular Heart Sounds: Present: S1 & S2. Absent: gallop, rub Extremities: pulses intact, No edema, normal color, Full ROM - Gastrointestinal General gastrointestinal: Present: soft, non-tender, non-distended, normal bowel sounds - Genitourinary Male genitourinary: normal - Integumentary Integumentary: clear, warm, dry - Musculoskeletal Musculoskeletal: 1, strength equal bilaterally - Neurologic Neurologic: moves all extremities - Psychiatric Psychiatric: memory intact, appropriate mood/affect, intact judgment & insight - Labs CBC & Chem 7: 04/29/20 08:13 04/29/20 08:13 Labs: Abnormal lab results 04/28/20 04/28/20 04/28/20 Range/Units 13:11 13:11 13:11 RBC 5.39 H (3.65-5.03) M/mm3 Hgb (11.8-15.2) gm/dl Hct (35.5-45.6) % RDW 15.3 H (13.2-15.2) % [place] % (Auto) 8.6 H (0.0-7.3) % Baso % (Auto) (0.0-1.8) % Baso # (Auto) (0.0-0.1) K/mm3 PT (12.2-14.9) Sec. INR (0.87-1.13) Potassium 5.4 H (3.6-5.0) mmol/L Creatinine 1.4 H (0.8-1.3) mg/dL AST 58 H (5-40) units/L ALT 95 H (7-56) units/L NT-Pro-B Natriuret Pep 5653 H (0-900) pg/mL Total Protein 5.8 L (6.3-8.2) g/dL Albumin 3.8 L (3.9-5) g/dL 04/29/20 04/29/20 04/29/20 Range/Units 08:13 08:13 08:13 RBC 5.65 H (3.65-5.03) M/mm3 Hgb 15.5 H (11.8-15.2) gm/dl Hct 47.2 H (35.5-45.6) % RDW (13.2-15.2) % [place] % (Auto) (0.0-7.3) % Baso % (Auto) 2.3 H (0.0-1.8) % Baso # (Auto) 0.2 H (0.0-0.1) K/mm3 PT 15.3 H (12.2-14.9) Sec. INR 1.21 H (0.87-1.13) Potassium (3.6-5.0) mmol/L Creatinine 1.5 H (0.8-1.3) mg/dL AST (5-40) units/L ALT (7-56) units/L NT-Pro-B Natriuret Pep (0-900) pg/mL Total Protein (6.3-8.2) g/dL Albumin (3.9-5) g/dL HEART Score - HEART Score Troponin: Troponin T < 0.010 ng/mL (0.00-0.029) 04/28/20 21:37
--- NOTE | 2020-04-29 15:35 | Consultation ---
History of Present Illness - Reason for Consult Consult date: 04/29/20 Abnormal LFTs Requesting physician: ALMA DELIA TRAYLOR - History of Present Illness 49 yo BM, admitted with 2 wk hx of SOB and LE edema. Found to have CHF with LVEF = 15-20%, and also found to have elevated LFTs with AST/ALT = 58/95. Denies prior known hx of liver disease. No hx of IVDA, and no significant recent EtOH. No abd pain, N/V, GI bleed, weight loss. Has no prior known hx of heart dise ase. Meds reviewed. Past History Past Medical History: No medical history Past Surgical History: No surgical history, Other (Hx of pelvic fracture) Social history: smoking (Current daily smoker), alcohol abuse (Several beers/d) Family history: no significant family history Medications and Allergies Allergies Allergy/AdvReac Type Severity Reaction Status Date / Time No Known Allergies Allergy Verified 06/24/16 21:47 Home Medications Medication Instructions Recorded Confirmed Last Taken Type Aspirin EC [Ecotrin] 325 mg PO QDAY tablet 06/26/16 04/29/20 Unknown Rx Active Meds: Active Medications Acetaminophen (Acetaminophen 325 Mg Tab) 650 mg PO Q4H PRN PRN Reason: Pain MILD(1-3)/Fever >100.5/GOLD Carvedilol (Carvedilol 3.125 Mg Tab) 3.125 mg PO BID [facility] Last Admin: 04/29/20 13:16 Dose: 3.125 mg Documented by: Furosemide (Furosemide 40 Mg/4 Ml Inj) 40 mg IV BID@0600,1800 [facility] Last Admin: 04/29/20 05:16 Dose: 40 mg Documented by: Heparin Sodium (Porcine) (Heparin 5,000 Unit/1 Ml Vial) 5,000 unit SUB-Q Q8HR [facility] Last Admin: 04/29/20 13:17 Dose: 5,000 unit Documented by: Magnesium Hydroxide (Magnesium Hydroxide (Mom) Oral Liqd Udc) 30 ml PO Q4H PRN PRN Reason: Constipation Morphine Sulfate (Morphine 2 Mg/1 Ml Inj) 2 mg IV Q4H PRN PRN Reason: Pain, Moderate (4-6) Ondansetron HCl (Ondansetron 4 Mg/2 Ml Inj) 4 mg IV Q8H PRN PRN Reason: Nausea And Vomiting Sodium Chloride (Sodium Chloride 0.9% 10 Ml Flush Syringe) 10 ml IV BID [facility] Last Admin: 04/29/20 10:21 Dose: 10 ml Documented by: Sodium Chloride (Sodium Chloride 0.9% 10 Ml Flush Syringe) 10 ml IV PRN PRN PRN Reason: LINE FLUSH Review of Systems All systems: negative (as per HPI) Exam - Constitutional Vitals: Temp Pulse Resp BP Pulse Ox 98.6 F 107 H 22 121/84 100 04/29/20 12:26 04/29/20 12:04/29/20 12:04/29/20 12:04/29/20 12:26 General appearance: Present: no acute distress - EENT Eyes: Present: PERRL, EOM intact ENT: hearing intact - Neck Neck: Present: supple - Respiratory Respiratory effort: normal Respiratory: bilateral: rales (1/3rd way up bases) - Cardiovascular Rhythm: regular Heart Sounds: Present: S1 & S2 - Extremities Extremity abnormal: edema (1+ LE) - Abdominal General gastrointestinal: Present: soft, non-tender Results - Labs CBC & Chem 7: 04/29/20 08:13 04/29/20 08:13 Labs: Abnormal lab results 04/28/20 04/29/20 04/29/20 Range/Units 13:11 08:13 08:13 RBC 5.65 H (3.65-5.03) M/mm3 Hgb 15.5 H (11.8-15.2) gm/dl Hct 47.2 H (35.5-45.6) % Baso % (Auto) 2.3 H (0.0-1.8) % Baso # (Auto) 0.2 H (0.0-0.1) K/mm3 PT 15.3 H (12.2-14.9) Sec. INR 1.21 H (0.87-1.13) Creatinine (0.8-1.3) mg/dL NT-Pro-B Natriuret Pep 5653 H (0-900) pg/mL 04/29/20 Range/Units 08:13 RBC (3.65-5.03) M/mm3 Hgb (11.8-15.2) gm/dl Hct (35.5-45.6) % Baso % (Auto) (0.0-1.8) % Baso # (Auto) (0.0-0.1) K/mm3 PT (12.2-14.9) Sec. INR (0.87-1.13) Creatinine 1.5 H (0.8-1.3) mg/dL NT-Pro-B Natriuret Pep (0-900) pg/mL Assessment and Plan 1. Elevated transaminases - likely due to congestive hepatopathy. Need to exclude viral hepatitis, though pt denies IVDA (he is urine positive for amphetamines and marijuana). Will also get liver U/S. - hepatitis serologies - RUQ U/S - monitor LFTs while addressing CHF.
[2020-04-30] MEDS: FUROSEMIDE 40 MG/4 ML INJ IV SCH (06:11)
[2020-04-30] MEDS: HEPARIN 5,000 UNIT/1 ML VIAL SUB-Q SCH ×3 (06:11→22:33)
[2020-04-30 09:25] LABS: Albumin 3.6 g/dL (3.9-5); Bilirubin,Direct 0.2 mg/dL (0-0.2)
--- NOTE | 2020-04-30 10:35 | Ultrasound Report ---
ULTRASOUND ABDOMEN, LIMITED (RIGHT UPPER QUADRANT) INDICATION: Abnormal LFTs. COMPARISON: None available. FINDINGS: Pancreas: Visualized portion shows no significant abnormality. Liver: Normal. Gallbladder: Normal. Bile ducts: Normal. Common Bile Duct measures 5 mm. Free fluid: None. Additional Findings: Right pleural effusion. IMPRESSION: 1. No sonographic abnormality of the right upper quadrant. 2. Right pleural effusion. Signer Name: Nicolas Levy MD Signed: 04/30/2020 10:30 AM Workstation Name: [id number]
--- NOTE | 2020-04-30 11:05 | Progress Note ---
Assessment and Plan tte reviewed - EF 15-20%, mild pulm HTN, mild MR. tte from 06/2016 reviewed - EF 40-45%, mild MR. Titrate coreg, no ACEI/ARB in setting of SARAVANAN. Reduce IV lasix to daily dosing. Coronary angiography recommended for further evaluation of cardiomyopathy etiology. Indications, potential risks and benefits of LHC reviewed with pt and he is agreeable to proceed with LHC in AM pending renal function will permit. NPO after MN and f/u BMP in AM. The patient has been seen in conjunction with Dr. Anson Pete who agrees with the assessment and plan of care. - Patient Problems (1) Acute HFrEF (heart failure with reduced ejection fraction) Current Visit: Yes Status: Acute (2) Cardiomyopathy Current Visit: Yes Status: Acute (3) Polysubstance abuse Current Visit: Yes Status: Acute Subjective Date of service: 04/30/20 Principal diagnosis: New onset CHF Interval history: pt resting in bed, SOB improving. tele reviewed - in ST HR 108. Objective Last Vital Signs Temp 97.5 F L 04/30/20 04:42 Pulse 99 H 04/30/20 04:42 Resp 18 04/30/20 04:42 BP 111/81 04/30/20 04:42 Pulse Ox 98 04/30/20 04:42 - Physical Examination General: No Apparent Distress HEENT: Positive: PERRL, Normocephaly, Mucus Membranes Moist Neck: Positive: neck supple, trachea midline Cardiac: Positive: Regular Rhythm, S1/S2 Lungs: Positive: Decreased Breath Sounds Neuro: Positive: Grossly Intact Abdomen: Negative: Tender Skin: Negative: Rash Musculoskeletal: No Pain Extremities: Absent: edema - Labs and Meds Cardiac Enzymes 04/30/20 Range/Units 08:16 AST 40 (5-40) units/L Comprehensive Metabolic Panel 04/30/20 Range/Units 08:16 Direct Bilirubin 0.2 (0-0.2) mg/dL Indirect Bilirubin 0.6 mg/dL AST 40 (5-40) units/L ALT 80 H (7-56) units/L Alkaline Phosphatase 90 (35-129) units/L Total Protein 6.2 L (6.3-8.2) g/dL Albumin 3.6 L (3.9-5) g/dL - Imaging and Cardiology EKG: report reviewed, image reviewed Echo: report reviewed - Telemetry EKG Rhythm: Sinus Rhythm
[2020-04-30] MEDS: carvediloL 3.125 MG TAB PO SCH (11:35)
--- NOTE | 2020-04-30 12:17 | Progress Note ---
Assessment and Plan 1. Elevated transaminases - likely due to congestive hepatopathy, and improved with diuresis. RUQ U/S normal. Need to exclude viral hepatitis, though pt denies IVDA (he is urine positive for amphetamines and marijuana). - f/u hepatitis serologies - monitor LFTs while addressing CHF. Subjective Date of service: 04/30/20 Principal diagnosis: New onset CHF Interval history: Pt feels better. Breathing better. Objective - Constitutional Vitals: Vital Signs - 12hr 04/30/20 04:42 Temperature 97.5 F L Pulse Rate 99 H Respiratory 18 Rate Blood Pressure 111/81 O2 Sat by Pulse 98 Oximetry General appearance: Present: no acute distress - Respiratory Respiratory effort: normal - Gastrointestinal General gastrointestinal: Present: soft, non-tender - Labs CBC & Chem 7: 04/29/20 08:13 04/29/20 08:13 Labs: Abnormal lab results 04/30/20 Range/Units 08:16 ALT 80 H (7-56) units/L Total Protein 6.2 L (6.3-8.2) g/dL Albumin 3.6 L (3.9-5) g/dL Medications & Allergies - Medications Allergies/Adverse Reactions: Allergies No Known Allergies Allergy (Verified 06/24/16 21:47) Home Medications: Home Medications Medication Instructions Recorded Confirmed Last Taken Type Aspirin EC [Ecotrin] 325 mg PO QDAY tablet 06/26/16 04/29/20 Unknown Rx Active Medications: Generic Name Dose Route Start Last Admin Trade Name Freq PRN Reason Stop Dose Admin Acetaminophen 650 mg 04/28/20 23:43 Acetaminophen 325 Mg Tab PO Q4H PRN Pain MILD(1-3)/Fever >100.5/GOLD Carvedilol 3.125 mg 04/29/20 12:00 04/30/20 11:35 Carvedilol 3.125 Mg Tab PO 3.125 mg BID [facility] Administration Furosemide 40 mg 04/29/20 06:00 04/30/20 06:11 Furosemide 40 Mg/4 Ml Inj IV 40 mg BID@0600,1800 [facility] Administration Heparin Sodium (Porcine) 5,000 unit 04/29/20 06:00 04/30/20 06:11 Heparin 5,000 Unit/1 Ml Vial SUB-Q 5,000 unit Q8HR [facility] Administration Magnesium Hydroxide 30 ml 04/28/20 23:43 Magnesium Hydroxide (Mom) Oral Liqd Udc PO Q4H PRN Constipation Morphine Sulfate 2 mg 04/28/20 23:43 Morphine 2 Mg/1 Ml Inj IV Q4H PRN Pain, Moderate (4-6) Ondansetron HCl 4 mg 04/28/20 23:43 Ondansetron 4 Mg/2 Ml Inj IV Q8H PRN Nausea And Vomiting Sodium Chloride 10 ml 04/29/20 10:00 04/29/20 22:14 Sodium Chloride 0.9% 10 Ml Flush Syringe IV 10 ml BID [facility] Administration Sodium Chloride 10 ml 04/28/20 23:43 Sodium Chloride 0.9% 10 Ml Flush Syringe IV PRN PRN LINE FLUSH HEART Score - HEART Score Troponin: Troponin T < 0.010 ng/mL (0.00-0.029) 04/28/20 21:37
[2020-04-30] MEDS ORDERED: SODIUM CHLORIDE 0.9% 500 ML 500 ML IV SCH (14:00)
[2020-04-30] MEDS: carvediloL 6.25 MG TAB PO SCH ×2 (15:22→22:33)
--- NOTE | 2020-05-01 01:28 | Progress Note ---
Assessment and Plan - Patient Problems (1) New onset of congestive heart failure Current Visit: Yes Status: Acute Plan to address problem: Patient admitted to telemetry and placed on diuretics. Will monitor inputs and outputs and also monitor daily weight. Patient be scheduled for echocardiogram. We will request cardiology evaluation and recommendation. Per Cardiology "tte reviewed - EF 15-20%, mild pulm HTN, mild MR. tte from 06/2016 reviewed - EF 40-45%, mild MR. Titrate coreg, no ACEI/ARB in setting of SARAVANAN. Reduce IV lasix to daily dosing. Coronary angiography recommended for further evaluation of cardiomyopathy etiology. Indications, potential risks and benefits of LHC reviewed with pt and he is agreeable to proceed with LHC in AM pending renal function will permit. NPO after MN and f/u BMP in AM. " (2) Chest pain Current Visit: Yes Status: Acute Plan to address problem: Chest pain is resolved however we will check serial cardiac enzymes. We await further evaluation and recommendation by cardiology. (3) Methamphetamine abuse Current Visit: Yes Status: Acute Plan to address problem: Counseled on quitting illicit drug use. (4) Elevated liver enzymes Current Visit: Yes Status: Acute Plan to address problem: We will monitor LFTs. Consult will be placed to gastroenterology for evaluation as needed. (5) DVT prophylaxis Current Visit: Yes Status: Acute Plan to address problem: Patient placed on subcutaneous heparin. (6) Full code status Current Visit: Yes Status: Acute Plan to address problem: Patient is a full code. Subjective Date of service: 04/30/20 Principal diagnosis: New onset CHF Interval history: 49-year-old male presenting to the emergency room today complaining of shortness of breath for about 2 weeks. He has also been having bilateral lower extremity swelling over the same period of time. He has had occasional cough which is nonproductive. Patient denies any fever or chills, no nausea vomiting, no headache or dizziness, no diaphoresis. He denies any sick contacts and no recent travel. Denies any contact with anyone with COVID-19. Patient indicates that she daily tobacco smoker and also uses methamphetamine. He had some mild chest discomfort upon arrival in the emergency room however chest pain has resolved. Work-up in the emergency room reveals pleural effusion pulmonary edema. Labs were positive for methamphetamine and marijuana. He also had elevated BNP. Patient admitted with CHF - new onset. 04/29/2020 Symptomatically better 04/30/20 Sob less Objective - Constitutional Vitals: Vital Signs - 12hr 04/30/20 04/30/20 04/30/20 15:01 16:00 19:55 Temperature 98.8 F 98.8 F Pulse Rate 69 69 101 H Respiratory 18 18 Rate Blood Pressure 122/84 105/77 O2 Sat by Pulse 98 97 Oximetry 04/30/20 04/30/20 05/01/20 22:33 23:30 00:00 Temperature 98.7 F Pulse Rate 101 H 99 H 103 H Respiratory 18 Rate Blood Pressure 105/77 105/70 O2 Sat by Pulse 97 Oximetry General appearance: Present: no acute distress, well-nourished - EENT Eyes: PERRL, EOM intact ENT: hearing intact, clear oral mucosa Ears: bilateral: normal - Neck Neck: supple, normal ROM - Respiratory Respiratory effort: normal Respiratory: bilateral: CTA, rales (scattered ) - Breasts Breasts: normal - Cardiovascular Heart rate: 78 Rhythm: regular Heart Sounds: Present: S1 & S2. Absent: gallop, rub Extremities: pulses intact, No edema, normal color, Full ROM - Gastrointestinal General gastrointestinal: Present: soft, non-tender, non-distended, normal bowel sounds - Genitourinary Male genitourinary: normal - Integumentary Integumentary: clear, warm, dry - Musculoskeletal Musculoskeletal: 1, strength equal bilaterally - Neurologic Neurologic: moves all extremities - Psychiatric Psychiatric: memory intact, appropriate mood/affect, intact judgment & insight - Labs CBC & Chem 7: 04/29/20 08:13 04/29/20 08:13 Labs: Abnormal lab results 04/30/20 04/30/20 Range/Units 08:16 16:09 POC Glucose 111 H (70-105) mg/dL ALT 80 H (7-56) units/L Total Protein 6.2 L (6.3-8.2) g/dL Albumin 3.6 L (3.9-5) g/dL HEART Score - HEART Score Troponin: Troponin T < 0.010 ng/mL (0.00-0.029) 04/28/20 21:37
[2020-05-01 05:33] LABS: Hematocrit 45.3 % (35.5-45.6); Hemoglobin 14.7 gm/dl (11.8-15.2); Mean Corpuscular HGB Conc 32 % (32-34); Mean Corpuscular Volume 85 fl (84-94); Platelet Count 234 K/mm3 (140-440); Red Blood Count 5.35 M/mm3 (3.65-5.03); Red Cell Distribution Width 15.2 % (13.2-15.2)
[2020-05-01 05:35] LABS: INR 1.11 (0.87-1.13)
[2020-05-01 05:51] LABS: Calcium 8.3 mg/dL (8.4-10.2)
[2020-05-01] MEDS: HEPARIN 5,000 UNIT/1 ML VIAL SUB-Q SCH ×3 (06:42→22:43)
[2020-05-01] MEDS ORDERED: ASPIRIN EC 325 MG TAB PO ONE (07:45)
[2020-05-01] MEDS ORDERED: ASPIRIN 325 MG TAB ONE (07:46)
--- NOTE | 2020-05-01 07:46 | Anesthesia Consultation ---
Anesthesia Consult and Med Hx Date of service: 05/01/20 - Airway Anesthetic Teeth Evaluation: Dentures, Partials ROM Head & Neck: Adequate Mental/Hyoid Distance: Adequate Mallampati Class: Class II Intubation Access Assessment: Probably Good - Pre-Operative Health Status ASA Pre-Surgery Classification: ASA3 Proposed Anesthetic Plan: MAC - Pulmonary Hx Smoking: Yes (quit Apr 15, 2020) Hx Asthma: No Hx Respiratory Symptoms: No SOB: No COPD: No Home Oxygen Therapy: No Hx Pneumonia: No Hx Sleep Apnea: Yes - Cardiovascular System Hx Hypertension: Yes Hx Coronary Artery Disease: No Hx Heart Attack/AMI: No Hx Angina: No Hx Percutaneous Transluminal Coronary Angioplasty (PTCA): No Hx Cardia Arrhythmia: No Hx Pacemaker: No Hx Internal Defibrillator: No Hx Valvular Heart Disease: No Hx Heart Murmur: No Hx Peripheral Vascular Disease: No - Central Nervous System Hx Neuromuscular Disorder: No Hx Seizures: No CVA: No Hx Back Pain: No Hx Psychiatric Problems: No - Gastrointestinal Hx Ulcer: No Hx Gastroesophageal Reflux Disease: Yes - Endocrine Hx Renal Disease: No Hx End Stage Renal Disease: No Hx Cirrhosis: No Hx Liver Disease: No Hx Insulin Dependent Diabetes: No Hx Non-Insulin Dependent Diabetes: No Hx Thyroid Disease: No Hx Hypothyroidism: Yes Hx Hyperthyroidism: No - Hematic Hx Anemia: No Hx Sickle Cell Disease: No - Other Systems Hx Alcohol Use: Yes Hx Substance Use: Yes Hx Cancer: No Hx Obesity: Yes
--- NOTE | 2020-05-01 07:47 | Anesthesia Day of Surgery ---
Anesthesia Day of Surgery - Day of Surgery Patient Examined: Yes Patient H&P Reviewed: Yes Patient is NPO: Yes
[2020-05-01] MEDS ORDERED: SODIUM CHLORIDE 0.9% 500 ML 500 ML IV SCH (08:00)
[2020-05-01] MEDS ORDERED: fentaNYL 100 MCG/2 ML INJ ONE (08:07)
[2020-05-01] MEDS ORDERED: MIDAZOLAM 2 MG/2 ML INJ ONE (08:07)
[2020-05-01] MEDS ORDERED: LIDOCAINE (2%) 20 MG/1 ML VIAL 20 ML MDV INFILTRATI ONE (08:07)
[2020-05-01] MEDS ORDERED: HEPARIN/NS 5000 UNIT/500ML 1,000 ML IR ONE (08:07)
[2020-05-01] MEDS ORDERED: VERAPAMIL 5 MG/2 ML INJ ONE (08:07)
[2020-05-01] MEDS ORDERED: HEPARIN 10,000 UNITS/10 ML VIAL ONE (08:07)
[2020-05-01] MEDS: NITROGLYCERIN SYRINGE 3 ML ONE ×2 (08:39→08:40)
--- NOTE | 2020-05-01 09:26 | Cardiac Catherization Report ---
CARDIAC CATHETERIZATION REFERRING PHYSICIAN: Hospitalist service. INDICATION FOR PROCEDURE: The patient is a pleasant 49-year-old -[place] male found to have a severe dilated cardiomyopathy, ejection fraction of approximately 15%, referred for left heart catheterization to assess etiology to exclude coronary artery disease. It should be noted that his creatinine is mildly elevated at 1.5, likely a component of cardiorenal syndrome. We used as little dye as possible. Risks including contrast-induced nephropathy, benefits, alternatives discussed at length prior to obtaining informed consent. PROCEDURE IN DETAIL: The patient was brought to the [facility] laborer in a postabsorptive state, prepped and draped in sterile fashion. Chuckie's test in right hand was normal. A 2 mL of 2% lidocaine used to anesthetize the right wrist. A standard 6-Thai hydrophilic sheath used to cannulate the right radial artery via modified Seldinger technique. All exchanges performed to exchange a J-tip guidewire. JL3.5 catheter was used to engage the left main. No dampening or ventricularization. Cineangiography performed in all projections. JR4 catheter used to cross the aortic valve under fluoroscopic guidance. Left ventriculography performed in 30 BARRETO and 30 SINHALA projections via hand injections, catheter flushed. Manual pullback performed with continuous pressure monitoring. Catheter used to engage the right coronary. No dampening or ventricularization. Cineangiography performed in all projections. Next, catheter removed from the body of wire, sheath removed. Manual pressure used to achieve hemostasis, directly supervised the administration of moderate sedation from 8:30 a.m. to 8:55 a.m. No immediate complications identified. DATA: The patient remained in sinus rhythm throughout the procedure. Aortic pressure is 90/70, LV pressure is 90, LVP of 20 mmHg. Left ventriculography reveals severe dilated globally hypokinetic left ventricle with estimated ejection fraction of 15-20%. CORONARY ANATOMY: Left main without significant disease, bifurcates left anterior descending and left circumflex. Left circumflex is a moderate sized vessel, courses AV groove. No significant disease. LAD is a moderate sized vessel, courses anterior intergroove, wraps around the apex, no significant disease. Right dominant system, right coronary is a moderate sized vessel, courses the AV groove, distally bifurcates in the posterior descending and posterolateral branch. No discrete stenosis noted. CONCLUSIONS: 1. No angiographic evidence of significant epicardial coronary disease in this right dominant system. 2. Severe globally dilated and hypokinetic left ventricle with estimated ejection fraction of 15-20%. 3. No evidence of aortic stenosis. 4. Mildly elevated LVEDP. These findings are consistent with severe dilated nonischemic cardiomyopathy, which is near euvolemia, which is nearly compensated. Continue current medications. We will up titrate low dose beta blockade. Consider LifeVest placement. I had a long discussion with the patient regarding dilated cardiomyopathy findings and so forth. Salt reduction, volume maintenance also discussed. Standard radial care. We will follow along. JOB# [id number] SBMyles/NTS
[2020-05-01] MEDS ORDERED: FUROSEMIDE 40 MG/4 ML INJ IV SCH (10:00)
[2020-05-01] MEDS: carvediloL 6.25 MG TAB PO SCH ×2 (10:01→22:03)
--- NOTE | 2020-05-01 10:25 | Progress Note ---
Assessment and Plan S/p C today which showed normal coronary arteries, EF 15-20%. Cont coreg, no ACEI/ARB in setting of SARAVANAN. Convert IV lasix to PO lasix and f/u BMP in AM. LifeVest recommended in setting of severe NICMP. LifeVest ordered. Will plan to evaluate for AICD candidacy as OP. The patient has been seen in conjunction with Dr. Anson Pete who agrees with the assessment and plan of care. - Patient Problems (1) Acute HFrEF (heart failure with reduced ejection fraction) Current Visit: Yes Status: Acute (2) Nonischemic cardiomyopathy Current Visit: Yes Status: Acute (3) SARAVANAN (acute kidney injury) Current Visit: Yes Status: Acute (4) Polysubstance abuse Current Visit: Yes Status: Acute Subjective Date of service: 05/01/20 Principal diagnosis: New onset CHF Interval history: pt resting in bed, seen s/p C, SOB improved. tele reviewed - in SR HR 90s. Objective Last Vital Signs Temp 98.1 F 05/01/20 07:51 Pulse 97 H 05/01/20 07:51 Resp 18 05/01/20 07:51 BP 100/74 05/01/20 07:51 Pulse Ox 97 05/01/20 07:51 - Physical Examination General: No Apparent Distress HEENT: Positive: PERRL, Normocephaly, Mucus Membranes Moist Neck: Positive: neck supple, trachea midline Cardiac: Positive: Reg Rate and Rhythm, S1/S2 Lungs: Positive: Decreased Breath Sounds Neuro: Positive: Grossly Intact Abdomen: Negative: Tender Skin: Negative: Rash Musculoskeletal: No Pain Extremities: Absent: edema - Labs and Meds Coagulation 05/01/20 Range/Units 04:36 PT 14.2 (12.2-14.9) Sec. INR 1.11 (0.87-1.13) CBC 05/01/20 Range/Units 04:36 WBC 5.4 (4.5-11.0) K/mm3 RBC 5.35 H (3.65-5.03) M/mm3 Hgb 14.7 (11.8-15.2) gm/dl Hct 45.3 (35.5-45.6) % Plt Count 234 (140-440) K/mm3 Comprehensive Metabolic Panel 05/01/20 Range/Units 04:36 Sodium 139 (137-145) mmol/L Potassium 4.0 (3.6-5.0) mmol/L Chloride 104.9 (98-107) mmol/L Carbon Dioxide 23 (22-30) mmol/L BUN 21 H (9-20) mg/dL Creatinine 1.5 H (0.8-1.3) mg/dL Glucose 101 H (75-100) mg/dL Calcium 8.3 L (8.4-10.2) mg/dL - Imaging and Cardiology EKG: report reviewed, image reviewed Echo: report reviewed (tte reviewed - EF 15-20%, mild pulm HTN, mild MR. tte from 06/2016 reviewed - EF 40-45%, mild MR.) - Telemetry EKG Rhythm: Sinus Rhythm
--- NOTE | 2020-05-01 16:44 | Progress Note ---
Assessment and Plan Assessment and plan: --New onset of congestive heart failure Current Visit: Yes Status: Acute Plan to address problem: Echocardiogram; EF 15 to 20%[EF was 40 to 45% in 2017] Input output monitoring, fluid restriction, low-sodium diet IV diuretics, beta-blockers, FAHAD inhibitors, nitrates Cardiology consult, possible ischemia work-up with left heart catheterization today --Severe nonischemic cardiomyopathy; EF 15 to 20% Current Visit: Yes Status: Acute Plan to address problem: IV diuretics, input output monitoring, fluid restriction, LifeVest prior to discharge, outpatient evaluation for ICD placement --Atypical chest pain Current Visit: Yes Status: Acute Plan to address problem: Chest pain is resolved however we will check serial cardiac enzymes. Patient had left heart catheterization today, nonobstructive coronaries Severe dilated cardiomyopathy EF 15 to 20% --Methamphetamine abuse Current Visit: Yes Status: Acute Plan to address problem: Strongly advised to quit recreational drug use -- Elevated liver enzymes Current Visit: Yes Status: Acute Plan to address problem: GI has evaluated the patient elevated LFTs probably secondary to Congested liver, due to CHF Closely monitor -- DVT prophylaxis Current Visit: Yes Status: Acute Plan to address problem: Patient placed on subcutaneous heparin. --Full code status Current Visit: Yes Status: Acute Plan to address problem: Patient is a full code. We will closely monitor the patient and adjust management as needed Plan of care reviewed with the patient and his nurse 05/01/2020; left heart catheterization, nonobstructive coronaries, severe nonischemic dilated cardiomyopathy EF 15 to 20%, cardiology recommending LifeVest and possible outpatient evaluation for ICD placement History Interval history: I have seen and examined the patient at the bedside Patient's chart and medications reviewed Patient complains of generalized weakness and mild shortness of breath Patient has severe cardiomyopathy, ejection fraction of 15 to 20% Vital signs noted Hospitalist Physical - Constitutional Vitals: Temp Pulse Resp BP Pulse Ox 98.0 F 93 H 18 90/63 93 05/01/20 12:13 05/01/20 12:13 05/01/20 12:13 05/01/20 12:13 05/01/20 12:13 General appearance: Present: no acute distress, well-nourished - EENT Eyes: Present: PERRL, EOM intact - Neck Neck: Present: supple, normal ROM - Respiratory Respiratory effort: normal Respiratory: bilateral: diminished, rales, negative: rhonchi, wheezing - Cardiovascular Rhythm: regular Heart Sounds: Present: S1 & S2 - Extremities Extremities: no ischemia Extremity abnormal: edema - Abdominal General gastrointestinal: soft, non-tender, non-distended, normal bowel sounds - Integumentary Integumentary: Present: clear, warm - Psychiatric Psychiatric: appropriate mood/affect, cooperative - Neurologic Neurologic: CNII-XII intact, moves all extremities HEART Score - HEART Score Troponin: Troponin T < 0.010 ng/mL (0.00-0.029) 04/28/20 21:37 Results - Labs CBC & Chem 7: 05/01/20 04:36 05/01/20 04:36 Labs: Laboratory Last Values WBC 5.4 K/mm3 (4.5-11.0) 05/01/20 04:36 RBC 5.35 M/mm3 (3.65-5.03) H 05/01/20 04:36 Hgb 14.7 gm/dl (11.8-15.2) 05/01/20 04:36 Hct 45.3 % (35.5-45.6) 05/01/20 04:36 MCV 85 fl (84-94) 05/01/20 04:36 MCH 27 pg (28-32) L 05/01/20 04:36 MCHC 32 % (32-34) 05/01/20 04:36 RDW 15.2 % (13.2-15.2) 05/01/20 04:36 Plt Count 234 K/mm3 (140-440) 05/01/20 04:36 Lymph % (Auto) 31.5 % (13.4-35.0) 04/29/20 08:13 [place] % (Auto) 6.6 % (0.0-7.3) 04/29/20 08:13 Eos % (Auto) 0.2 % (0.0-4.3) 04/29/20 08:13 Baso % (Auto) 2.3 % (0.0-1.8) H 04/29/20 08:13 Lymph # (Auto) 2.1 K/mm3 (1.2-5.4) 04/29/20 08:13 [place] # (Auto) 0.4 K/mm3 (0.0-0.8) 04/29/20 08:13 Eos # (Auto) 0.0 K/mm3 (0.0-0.4) 04/29/20 08:13 Baso # (Auto) 0.2 K/mm3 (0.0-0.1) H 04/29/20 08:13 Seg Neutrophils % 59.4 % (40.0-70.0) 04/29/20 08:13 Seg Neutrophils # 3.9 K/mm3 (1.8-7.7) 04/29/20 08:13 PT 14.2 Sec. (12.2-14.9) 05/01/20 04:36 INR 1.11 (0.87-1.13) 05/01/20 04:36 Sodium 139 mmol/L (137-145) 05/01/20 04:36 Potassium 4.0 mmol/L (3.6-5.0) 05/01/20 04:36 Chloride 104.9 mmol/L (98-107) 05/01/20 04:36 Carbon Dioxide 23 mmol/L (22-30) 05/01/20 04:36 Anion Gap 15 mmol/L 05/01/20 04:36 BUN 21 mg/dL (9-20) H 05/01/20 04:36 Creatinine 1.5 mg/dL (0.8-1.3) H 05/01/20 04:36 Estimated GFR 60 ml/min 05/01/20 04:36 BUN/Creatinine Ratio 14 % 05/01/20 04:36 Glucose 101 mg/dL (75-100) H 05/01/20 04:36 POC Glucose 101 mg/dL (70-105) 05/01/20 06:30 Calcium 8.3 mg/dL (8.4-10.2) L 05/01/20 04:36 Total Bilirubin 0.80 mg/dL (0.1-1.2) 04/30/20 08:16 Direct Bilirubin 0.2 mg/dL (0-0.2) 04/30/20 08:16 Indirect Bilirubin 0.6 mg/dL 04/30/20 08:16 AST 40 units/L (5-40) 04/30/20 08:16 ALT 80 units/L (7-56) H 04/30/20 08:16 Alkaline Phosphatase 90 units/L (35-129) 04/30/20 08:16 Troponin T < 0.010 ng/mL (0.00-0.029) 04/28/20 21:37 NT-Pro-B Natriuret Pep 5653 pg/mL (0-900) H 04/28/20 13:11 Total Protein 6.2 g/dL (6.3-8.2) L 04/30/20 08:16 Albumin 3.6 g/dL (3.9-5) L 04/30/20 08:16 Albumin/Globulin Ratio 1.4 % 04/30/20 08:16 Urine Opiates Screen Negative 04/28/20 13:39 Urine Methadone Screen Negative 04/28/20 13:39 Ur Barbiturates Screen Negative 04/28/20 13:39 Ur Phencyclidine Scrn Negative 04/28/20 13:39 Ur Amphetamines Screen Positive 04/28/20 13:39 U Benzodiazepines Scrn Negative 04/28/20 13:39 Urine Cocaine Screen Negative 04/28/20 13:39 U Marijuana (THC) Screen Positive 04/28/20 13:39 Drugs of Abuse Note Disclamer 04/28/20 13:39 - Diagnostic Impressions Diagnostic Impressions: Echocardiogram 04/28/20 23:47 Transthoracic Echocardiogram Indication: Evaluate LV Function BP: 120/84 Conclusions *Global left ventricular systolic function is severely decreased. *The estimated ejection fraction is 15-20%. *The left ventricular size is mild to moderately dilated. *There is evidence of mild pulmonary hypertension. *There is mild mitral regurgitation. *There is no pericardial effusion. Findings Left Ventricle: The left ventricular size is mild to moderately dilated. There are multiple regional wall motion abnormalities. Global left ventricular systolic function is severely decreased. The estimated ejection fraction is 15-20%. Abnormal left ventricular diastolic function is observed. Left Atrium: The left atrium is normal in size with no visual thrombus identified. Right Ventricle: The right ventricular cavity size is normal. The right ventricular global systolic function is moderately reduced. Right Atrium: The right atrium is moderately dilated. The interatrial septum appears normal. Aortic Valve: The aortic valve structure is normal. There is no evidence of aortic regurgitation. There is no evidence of aortic stenosis. Mitral Valve: There is mild mitral regurgitation. There is no evidence of mitral stenosis. Tricuspid Valve: There is moderate tricuspid regurgitation. The tricuspid regurgitant jet is eccentric. The right ventricular systolic pressure is calculated at 35 mmHg. There is evidence of mild pulmonary hypertension. There is no tricuspid stenosis. Pulmonic Valve: There is mild pulmonic regurgitation. There is no pulmonic stenosis. Pericardium: There is no pericardial effusion. Aorta: There is no dilatation of the aortic root. Measurements Chambers MM Name Value Normal Range Ao root diameter (MM) 3.2 cm (2 - 3.7) LA dimension (AP) MM 3.5 cm (1.9 - 4) LA:Ao ratio (MM) 1.09 ratio - AV cusp separation (MM) 2 cm (1.5 - 2.6) Chambers 2D Name Value Normal Range RVIDd (AP) 2D 2.58 cm (0.9 - 2.6) IVSd (2D) 0.94 cm (0.6 - 1.1) LVPWd (2D) 0.84 cm (0.6 - 1.1) IVS:LVPW ratio (2D) 1.11 ratio - LVIDd (2D) 6.24 cm (3.7 - 5.6) LVIDs (2D) 5.7 cm (2 - 3.8) LV FS (Teichholz) (2D) 8.65 % - LV FS (cube) (2D) 8.65 % - EF Teichholz (2D) 18.8 % - Ao root diameter (2D) 2.7 cm (2 - 3.7) LA dimension (AP) 2D 3.6 cm (1.9 - 4) LA:Ao ratio (2D) 1.33 ratio - Volumes/Mass Name Value Normal Range LA ESV SP 4CH (MOD) 66 ml - LA ESV SP 2CH (MOD) 89 ml - LA ESV BP (MOD) 78 ml - LA ESV BP (MOD) index 37 ml/m2 - Diastolic/Systolic Function Name Value Normal Range MV E-wave Vmax 0.9 m/sec - MV A-wave Vmax 0.46 m/sec - MV E:A ratio 2 ratio - LV septal e' Vmax 0.07 m/sec - LV lateral e' Vmax 0.06 m/sec - LV E:e' septal ratio 12.4 ratio - LV E:e' lateral ratio 15.7 ratio - Aortic Valve Name Value Normal Range AV VTI 13.4 cm - AV mean gradient 3 mmHg - LVOT diameter 2 cm - LVOT VTI 8.6 cm - LVOT mean gradient 1 mmHg - SV LVOT 27 ml - AMANDA (continuity VTI) 2.02 cm2 - Tricuspid Valve Name Value Normal Range TR Vmax 2.84 m/sec - TR peak gradient 32 mmHg - RAP 3 mmHg - RVSP 35 mmHg - Pulmonic Valve/Qp:Qs Name Value Normal Range PV Vmax 0.77 m/sec - PV peak gradient 2 mmHg - MO end-diastolic Vmax 1.6 m/sec - Raymond/IV: Voiding Method Urinal IV Catheter Type [Left Hand] INT / Saline Lock Active Medications - Current Medications Current Medications: Generic Name Dose Route Start Last Admin Trade Name Freq PRN Reason Stop Dose Admin Acetaminophen 650 mg 04/28/20 23:43 Acetaminophen 325 Mg Tab PO Q4H PRN Pain MILD(1-3)/Fever >100.5/GOLD Carvedilol 6.25 mg 04/30/20 14:00 05/01/20 10:01 Carvedilol 6.25 Mg Tab PO 6.25 mg BID ELMER Administration Furosemide 40 mg 05/02/20 10:00 Furosemide 40 Mg Tab PO QDAY ELMER Heparin Sodium (Porcine) 5,000 unit 04/29/20 06:00 05/01/20 14:12 Heparin 5,000 Unit/1 Ml Vial SUB-Q Not Given Q8HR ELMER Sodium Chloride 500 mls @ 50 mls/hr 05/01/20 08:00 05/01/20 08:02 Nacl 0.9% 500 Ml IV 05/01/20 23:00 50 mls/hr DIRECT ELMER Administration Magnesium Hydroxide 30 ml 04/28/20 23:43 Magnesium Hydroxide (Mom) Oral Liqd Udc PO Q4H PRN Constipation Morphine Sulfate 2 mg 04/28/20 23:43 Morphine 2 Mg/1 Ml Inj IV Q4H PRN Pain, Moderate (4-6) Ondansetron HCl 4 mg 04/28/20 23:43 Ondansetron 4 Mg/2 Ml Inj IV Q8H PRN Nausea And Vomiting Sodium Chloride 10 ml 04/29/20 10:00 05/01/20 10:01 Sodium Chloride 0.9% 10 Ml Flush Syringe IV 10 ml BID ELMER Administration Sodium Chloride 10 ml 04/28/20 23:43 Sodium Chloride 0.9% 10 Ml Flush Syringe IV PRN PRN LINE FLUSH
[2020-05-02] MEDS: HEPARIN 5,000 UNIT/1 ML VIAL SUB-Q SCH ×3 (05:53→21:33)
[2020-05-02 06:28] LABS: Calcium 8.2 mg/dL (8.4-10.2)
--- NOTE | 2020-05-02 08:17 | Progress Note ---
Assessment and Plan Assessment and plan: --New onset of congestive heart failure Current Visit: Yes Status: Acute Plan to address problem: Echocardiogram; EF 15 to 20%[EF was 40 to 45% in 2017] Input output monitoring, fluid restriction, low-sodium diet IV diuretics, beta-blockers, FAHAD inhibitors, nitrates Cardiology consult, possible ischemia work-up with left heart catheterization today --Severe nonischemic cardiomyopathy; EF 15 to 20% Current Visit: Yes Status: Acute Plan to address problem: IV diuretics, input output monitoring, fluid restriction, LifeVest prior to discharge, outpatient evaluation for ICD placement --Atypical chest pain Current Visit: Yes Status: Acute Plan to address problem: Chest pain is resolved however we will check serial cardiac enzymes. Patient had left heart catheterization today, nonobstructive coronaries Severe dilated cardiomyopathy EF 15 to 20% --Methamphetamine abuse Current Visit: Yes Status: Acute Plan to address problem: Strongly advised to quit recreational drug use -- Elevated liver enzymes Current Visit: Yes Status: Acute Plan to address problem: GI has evaluated the patient elevated LFTs probably secondary to Congested liver, due to CHF Closely monitor -- DVT prophylaxis Current Visit: Yes Status: Acute Plan to address problem: Patient placed on subcutaneous heparin. --Full code status Current Visit: Yes Status: Acute Plan to address problem: Patient is a full code. We will closely monitor the patient and adjust management as needed Plan of care reviewed with the patient and his nurse 05/01/2020; left heart catheterization, nonobstructive coronaries, severe nonischemic dilated cardiomyopathy EF 15 to 20%, cardiology recommending LifeVest and possible outpatient evaluation for ICD placement 05/02/2020; patient feels better, awaiting LifeVest prior to discharge Cardiology recommendations noted and appreciated Plan of care reviewed with the patient and his nurse History Interval history: I have seen and examined the patient at the bedside Patient's chart and medications reviewed Patient feels slightly better Awaiting LifeVest prior to discharge No new complaints Hospitalist Physical - Constitutional Vitals: Temp Pulse Resp BP Pulse Ox 98.7 F 101 H 20 101/67 95 05/02/20 04:54 05/02/20 04:54 05/02/20 04:54 05/02/20 04:54 05/02/20 04:54 General appearance: Present: no acute distress, well-nourished - EENT Eyes: Present: PERRL, EOM intact - Neck Neck: Present: supple, normal ROM - Respiratory Respiratory effort: normal Respiratory: bilateral: diminished, rales, negative: rhonchi, wheezing - Cardiovascular Rhythm: regular Heart Sounds: Present: S1 & S2 - Extremities Extremities: no ischemia Extremity abnormal: edema - Abdominal General gastrointestinal: soft, non-tender, non-distended, normal bowel sounds - Integumentary Integumentary: Present: clear, warm - Psychiatric Psychiatric: appropriate mood/affect, cooperative - Neurologic Neurologic: moves all extremities HEART Score - HEART Score Troponin: Troponin T < 0.010 ng/mL (0.00-0.029) 04/28/20 21:37 Results - Labs CBC & Chem 7: 05/01/20 04:36 05/02/20 05:34 Labs: Laboratory Last Values WBC 5.4 K/mm3 (4.5-11.0) 05/01/20 04:36 RBC 5.35 M/mm3 (3.65-5.03) H 05/01/20 04:36 Hgb 14.7 gm/dl (11.8-15.2) 05/01/20 04:36 Hct 45.3 % (35.5-45.6) 05/01/20 04:36 MCV 85 fl (84-94) 05/01/20 04:36 MCH 27 pg (28-32) L 05/01/20 04:36 MCHC 32 % (32-34) 05/01/20 04:36 RDW 15.2 % (13.2-15.2) 05/01/20 04:36 Plt Count 234 K/mm3 (140-440) 05/01/20 04:36 Lymph % (Auto) 31.5 % (13.4-35.0) 04/29/20 08:13 [place] % (Auto) 6.6 % (0.0-7.3) 04/29/20 08:13 Eos % (Auto) 0.2 % (0.0-4.3) 04/29/20 08:13 Baso % (Auto) 2.3 % (0.0-1.8) H 04/29/20 08:13 Lymph # (Auto) 2.1 K/mm3 (1.2-5.4) 04/29/20 08:13 [place] # (Auto) 0.4 K/mm3 (0.0-0.8) 04/29/20 08:13 Eos # (Auto) 0.0 K/mm3 (0.0-0.4) 04/29/20 08:13 Baso # (Auto) 0.2 K/mm3 (0.0-0.1) H 04/29/20 08:13 Seg Neutrophils % 59.4 % (40.0-70.0) 04/29/20 08:13 Seg Neutrophils # 3.9 K/mm3 (1.8-7.7) 04/29/20 08:13 PT 14.2 Sec. (12.2-14.9) 05/01/20 04:36 INR 1.11 (0.87-1.13) 05/01/20 04:36 Sodium 140 mmol/L (137-145) 05/02/20 05:34 Potassium 4.1 mmol/L (3.6-5.0) 05/02/20 05:34 Chloride 104.9 mmol/L (98-107) 05/02/20 05:34 Carbon Dioxide 26 mmol/L (22-30) 05/02/20 05:34 Anion Gap 13 mmol/L 05/02/20 05:34 BUN 19 mg/dL (9-20) 05/02/20 05:34 Creatinine 1.5 mg/dL (0.8-1.3) H 05/02/20 05:34 Estimated GFR 60 ml/min 05/02/20 05:34 BUN/Creatinine Ratio 13 % 05/02/20 05:34 Glucose 89 mg/dL (75-100) 05/02/20 05:34 POC Glucose 101 mg/dL (70-105) 05/01/20 06:30 Calcium 8.2 mg/dL (8.4-10.2) L 05/02/20 05:34 Total Bilirubin 0.80 mg/dL (0.1-1.2) 04/30/20 08:16 Direct Bilirubin 0.2 mg/dL (0-0.2) 04/30/20 08:16 Indirect Bilirubin 0.6 mg/dL 04/30/20 08:16 AST 40 units/L (5-40) 04/30/20 08:16 ALT 80 units/L (7-56) H 04/30/20 08:16 Alkaline Phosphatase 90 units/L (35-129) 04/30/20 08:16 Troponin T < 0.010 ng/mL (0.00-0.029) 04/28/20 21:37 NT-Pro-B Natriuret Pep 5653 pg/mL (0-900) H 04/28/20 13:11 Total Protein 6.2 g/dL (6.3-8.2) L 04/30/20 08:16 Albumin 3.6 g/dL (3.9-5) L 04/30/20 08:16 Albumin/Globulin Ratio 1.4 % 04/30/20 08:16 Urine Opiates Screen Negative 04/28/20 13:39 Urine Methadone Screen Negative 04/28/20 13:39 Ur Barbiturates Screen Negative 04/28/20 13:39 Ur Phencyclidine Scrn Negative 04/28/20 13:39 Ur Amphetamines Screen Positive 04/28/20 13:39 U Benzodiazepines Scrn Negative 04/28/20 13:39 Urine Cocaine Screen Negative 04/28/20 13:39 U Marijuana (THC) Screen Positive 04/28/20 13:39 Drugs of Abuse Note Disclamer 04/28/20 13:39 - Diagnostic Impressions Diagnostic Impressions: Echocardiogram 04/28/20 23:47 Transthoracic Echocardiogram Indication: Evaluate LV Function BP: 120/84 Conclusions *Global left ventricular systolic function is severely decreased. *The estimated ejection fraction is 15-20%. *The left ventricular size is mild to moderately dilated. *There is evidence of mild pulmonary hypertension. *There is mild mitral regurgitation. *There is no pericardial effusion. Findings Left Ventricle: The left ventricular size is mild to moderately dilated. There are multiple regional wall motion abnormalities. Global left ventricular systolic function is severely decreased. The estimated ejection fraction is 15-20%. Abnormal left ventricular diastolic function is observed. Left Atrium: The left atrium is normal in size with no visual thrombus identified. Right Ventricle: The right ventricular cavity size is normal. The right ventricular global systolic function is moderately reduced. Right Atrium: The right atrium is moderately dilated. The interatrial septum appears normal. Aortic Valve: The aortic valve structure is normal. There is no evidence of aortic regurgitation. There is no evidence of aortic stenosis. Mitral Valve: There is mild mitral regurgitation. There is no evidence of mitral stenosis. Tricuspid Valve: There is moderate tricuspid regurgitation. The tricuspid regurgitant jet is eccentric. The right ventricular systolic pressure is calculated at 35 mmHg. There is evidence of mild pulmonary hypertension. There is no tricuspid stenosis. Pulmonic Valve: There is mild pulmonic regurgitation. There is no pulmonic stenosis. Pericardium: There is no pericardial effusion. Aorta: There is no dilatation of the aortic root. Measurements Chambers MM Name Value Normal Range Ao root diameter (MM) 3.2 cm (2 - 3.7) LA dimension (AP) MM 3.5 cm (1.9 - 4) LA:Ao ratio (MM) 1.09 ratio - AV cusp separation (MM) 2 cm (1.5 - 2.6) Chambers 2D Name Value Normal Range RVIDd (AP) 2D 2.58 cm (0.9 - 2.6) IVSd (2D) 0.94 cm (0.6 - 1.1) LVPWd (2D) 0.84 cm (0.6 - 1.1) IVS:LVPW ratio (2D) 1.11 ratio - LVIDd (2D) 6.24 cm (3.7 - 5.6) LVIDs (2D) 5.7 cm (2 - 3.8) LV FS (Teichholz) (2D) 8.65 % - LV FS (cube) (2D) 8.65 % - EF Teichholz (2D) 18.8 % - Ao root diameter (2D) 2.7 cm (2 - 3.7) LA dimension (AP) 2D 3.6 cm (1.9 - 4) LA:Ao ratio (2D) 1.33 ratio - Volumes/Mass Name Value Normal Range LA ESV SP 4CH (MOD) 66 ml - LA ESV SP 2CH (MOD) 89 ml - LA ESV BP (MOD) 78 ml - LA ESV BP (MOD) index 37 ml/m2 - Diastolic/Systolic Function Name Value Normal Range MV E-wave Vmax 0.9 m/sec - MV A-wave Vmax 0.46 m/sec - MV E:A ratio 2 ratio - LV septal e' Vmax 0.07 m/sec - LV lateral e' Vmax 0.06 m/sec - LV E:e' septal ratio 12.4 ratio - LV E:e' lateral ratio 15.7 ratio - Aortic Valve Name Value Normal Range AV VTI 13.4 cm - AV mean gradient 3 mmHg - LVOT diameter 2 cm - LVOT VTI 8.6 cm - LVOT mean gradient 1 mmHg - SV LVOT 27 ml - AMANDA (continuity VTI) 2.02 cm2 - Tricuspid Valve Name Value Normal Range TR Vmax 2.84 m/sec - TR peak gradient 32 mmHg - RAP 3 mmHg - RVSP 35 mmHg - Pulmonic Valve/Qp:Qs Name Value Normal Range PV Vmax 0.77 m/sec - PV peak gradient 2 mmHg - GA end-diastolic Vmax 1.6 m/sec - Raymond/IV: Voiding Method Urinal IV Catheter Type [Left Hand] INT / Saline Lock Active Medications - Current Medications Current Medications: Generic Name Dose Route Start Last Admin Trade Name Freq PRN Reason Stop Dose Admin Acetaminophen 650 mg 04/28/20 23:43 Acetaminophen 325 Mg Tab PO Q4H PRN Pain MILD(1-3)/Fever >100.5/GOLD Carvedilol 6.25 mg 04/30/20 14:00 05/01/20 22:03 Carvedilol 6.25 Mg Tab PO Not Given BID ELMER Furosemide 40 mg 05/02/20 10:00 Furosemide 40 Mg Tab PO QDAY ELMER Heparin Sodium (Porcine) 5,000 unit 04/29/20 06:00 05/02/20 05:53 Heparin 5,000 Unit/1 Ml Vial SUB-Q 5,000 unit Q8HR ELMER Administration Magnesium Hydroxide 30 ml 04/28/20 23:43 Magnesium Hydroxide (Mom) Oral Liqd Udc PO Q4H PRN Constipation Morphine Sulfate 2 mg 04/28/20 23:43 Morphine 2 Mg/1 Ml Inj IV Q4H PRN Pain, Moderate (4-6) Ondansetron HCl 4 mg 04/28/20 23:43 Ondansetron 4 Mg/2 Ml Inj IV Q8H PRN Nausea And Vomiting Sodium Chloride 10 ml 04/29/20 10:00 05/01/20 22:44 Sodium Chloride 0.9% 10 Ml Flush Syringe IV 10 ml BID ELMER Administration Sodium Chloride 10 ml 04/28/20 23:43 Sodium Chloride 0.9% 10 Ml Flush Syringe IV PRN PRN LINE FLUSH
[2020-05-02] MEDS: carvediloL 6.25 MG TAB PO SCH ×2 (09:40→21:33)
[2020-05-02] MEDS: FUROSEMIDE 40 MG TAB PO SCH (09:40)
--- NOTE | 2020-05-02 12:22 | Progress Note ---
Assessment and Plan Currently stable cardiac status. Cont present cardiac management, including coreg and PO lasix. No ACEI/ARB at this time in setting of SARAVANAN. LifeVest ordered. Will plan to evaluate for AICD candidacy as OP. Pending LifeVest placement, pt may discharge from cardiology standpoint. Follow up in our [place] office with Dr. Anson Pete on 05/18/2020 @ 2:30PM. The patient has been seen in conjunction with Dr. Anson Pete who agrees with the assessment and plan of care. - Patient Problems (1) Acute HFrEF (heart failure with reduced ejection fraction) Current Visit: Yes Status: Acute (2) Nonischemic cardiomyopathy Current Visit: Yes Status: Acute (3) SARAVANAN (acute kidney injury) Current Visit: Yes Status: Acute (4) Polysubstance abuse Current Visit: Yes Status: Acute Subjective Date of service: 05/02/20 Principal diagnosis: New onset CHF Interval history: pt resting in bed, no current cardiac complaints. tele reviewed - in SR HR 90s - 100s. Objective Last Vital Signs Temp 98.7 F 05/02/20 08:55 Pulse 99 H 05/02/20 08:55 Resp 18 05/02/20 10:00 BP 100/69 05/02/20 08:55 Pulse Ox 100 05/02/20 08:55 - Physical Examination General: No Apparent Distress HEENT: Positive: PERRL, Normocephaly, Mucus Membranes Moist Neck: Positive: neck supple, trachea midline Cardiac: Positive: Reg Rate and Rhythm, S1/S2 Lungs: Positive: Decreased Breath Sounds Neuro: Positive: Grossly Intact Abdomen: Negative: Tender Skin: Negative: Rash Musculoskeletal: No Pain Extremities: Absent: edema - Labs and Meds Comprehensive Metabolic Panel 05/02/20 Range/Units 05:34 Sodium 140 (137-145) mmol/L Potassium 4.1 (3.6-5.0) mmol/L Chloride 104.9 (98-107) mmol/L Carbon Dioxide 26 (22-30) mmol/L BUN 19 (9-20) mg/dL Creatinine 1.5 H (0.8-1.3) mg/dL Glucose 89 (75-100) mg/dL Calcium 8.2 L (8.4-10.2) mg/dL - Imaging and Cardiology EKG: report reviewed, image reviewed Echo: report reviewed (tte reviewed - EF 15-20%, mild pulm HTN, mild MR. tte from 06/2016 reviewed - EF 40-45%, mild MR.) Cardiac cath: report reviewed (normal coronary arteries, EF 15-20%. ) - Telemetry EKG Rhythm: Sinus Rhythm
--- NOTE | 2020-05-02 15:59 | Progress Note ---
Assessment and Plan 1. Elevated transaminases - likely due to congestive hepatopathy, and improved with diuresis. RUQ U/S normal. Need to exclude viral hepatitis, though pt denies IVDA (he is urine positive for amphetamines and marijuana). - f/u hepatitis serologies - recheck LFTs. Further evaluation as outpatient. Will sign off. Thanks. Subjective Date of service: 05/02/20 Principal diagnosis: New onset CHF Interval history: Doing well. No complaints. Objective - Constitutional Vitals: Vital Signs - 12hr 05/02/20 05/02/20 05/02/20 04:54 08:00 08:55 Temperature 98.7 F 98.7 F Pulse Rate 101 H 99 H 99 H Respiratory 20 18 Rate Blood Pressure 101/67 100/69 O2 Sat by Pulse 95 100 Oximetry 05/02/20 10:00 Temperature Pulse Rate Respiratory 18 Rate Blood Pressure O2 Sat by Pulse Oximetry General appearance: Present: no acute distress - EENT Eyes: PERRL, EOM intact ENT: hearing intact - Respiratory Respiratory effort: normal - Gastrointestinal General gastrointestinal: Present: soft, non-tender - Labs CBC & Chem 7: 05/01/20 04:36 05/02/20 05:34 Labs: Abnormal lab results 05/02/20 Range/Units 05:34 Creatinine 1.5 H (0.8-1.3) mg/dL Calcium 8.2 L (8.4-10.2) mg/dL Medications & Allergies - Medications Allergies/Adverse Reactions: Allergies No Known Allergies Allergy (Verified 06/24/16 21:47) Home Medications: Home Medications Medication Instructions Recorded Confirmed Last Taken Type Aspirin EC [Ecotrin] 325 mg PO QDAY tablet 06/26/16 04/29/20 Unknown Rx Active Medications: Generic Name Dose Route Start Last Admin Trade Name Freq PRN Reason Stop Dose Admin Acetaminophen 650 mg 04/28/20 23:43 Acetaminophen 325 Mg Tab PO Q4H PRN Pain MILD(1-3)/Fever >100.5/GOLD Carvedilol 6.25 mg 04/30/20 14:00 05/02/20 09:40 Carvedilol 6.25 Mg Tab PO 6.25 mg BID ELMER Administration Furosemide 40 mg 05/02/20 10:00 05/02/20 09:40 Furosemide 40 Mg Tab PO 40 mg QDAY ELMER Administration Heparin Sodium (Porcine) 5,000 unit 04/29/20 06:00 05/02/20 05:53 Heparin 5,000 Unit/1 Ml Vial SUB-Q 5,000 unit Q8HR ELMER Administration Magnesium Hydroxide 30 ml 04/28/20 23:43 Magnesium Hydroxide (Mom) Oral Liqd Udc PO Q4H PRN Constipation Morphine Sulfate 2 mg 04/28/20 23:43 Morphine 2 Mg/1 Ml Inj IV Q4H PRN Pain, Moderate (4-6) Ondansetron HCl 4 mg 04/28/20 23:43 Ondansetron 4 Mg/2 Ml Inj IV Q8H PRN Nausea And Vomiting Sodium Chloride 10 ml 04/29/20 10:00 05/01/20 22:44 Sodium Chloride 0.9% 10 Ml Flush Syringe IV 10 ml BID ELMER Administration Sodium Chloride 10 ml 04/28/20 23:43 Sodium Chloride 0.9% 10 Ml Flush Syringe IV PRN PRN LINE FLUSH HEART Score - HEART Score Troponin: Troponin T < 0.010 ng/mL (0.00-0.029) 04/28/20 21:37
[2020-05-02 16:48] LABS: Albumin 3.5 g/dL (3.9-5)
[2020-05-02 16:59] LABS: Alanine Aminotransferase 66 units/L (7-56)
[2020-05-02 17:00] LABS: Bilirubin,Direct < 0.2 mg/dL (0-0.2)
[2020-05-03] MEDS: HEPARIN 5,000 UNIT/1 ML VIAL SUB-Q SCH ×3 (05:47→21:38)
[2020-05-03 06:41] LABS: BUN/Creatinine Ratio 12; Blood Urea Nitrogen 17 mg/dL (9-20); Calcium 8.5 mg/dL (8.4-10.2); Hemolysis Index 1
--- NOTE | 2020-05-03 08:47 | Progress Note ---
Assessment and Plan Assessment and plan: -Acute systolic congestive heart failure Current Visit: Yes Status: Acute Plan to address problem: Echocardiogram; EF 15 to 20% Input output monitoring, fluid restriction, low-sodium diet IV diuretics, beta-blockers, no FAHAD inhibitors in view of acute kidney injury Cardiology recommended LifeVest prior to discharge, patient has no resources [facility], patient will be discharged when it is available --Severe nonischemic cardiomyopathy; EF 15 to 20% Current Visit: Yes Status: Acute Plan to address problem: IV diuretics, input output monitoring, fluid restriction, LifeVest prior to discharge, outpatient evaluation for ICD placement --Atypical chest pain Current Visit: Yes Status: Acute Plan to address problem: Chest pain is resolved however we will check serial cardiac enzymes. Patient had left heart catheterization today, nonobstructive coronaries Severe dilated cardiomyopathy EF 15 to 20% --Acute kidney injury; vasomotor nephropathy Current Visit: Yes Status: Acute Plan to address problem: gentle hydration, monitor renal function, avoid nephrotoxins Nephrology evaluation if no improvement --Methamphetamine abuse Current Visit: Yes Status: Acute Plan to address problem: Strongly advised to quit recreational drug use -- Elevated liver enzymes Current Visit: Yes Status: Acute Plan to address problem: GI has evaluated the patient elevated LFTs probably secondary to Congested liver, due to CHF Closely monitor -- DVT prophylaxis Current Visit: Yes Status: Acute Plan to address problem: Patient placed on subcutaneous heparin. --Full code status Current Visit: Yes Status: Acute Plan to address problem: Patient is a full code. We will closely monitor the patient and adjust management as needed Plan of care reviewed with the patient and his nurse 05/01/2020; left heart catheterization, nonobstructive coronaries, severe nonischemic dilated cardiomyopathy EF 15 to 20%, cardiology recommending LifeVest and possible outpatient evaluation for ICD placement 05/02/2020; patient feels better, awaiting LifeVest prior to discharge Cardiology recommendations noted and appreciated Plan of care reviewed with the patient and his nurse 05/03/2020; waiting for LifeVest, patient is stable for discharge History Interval history: I have seen and examined the patient at the bedside today Patient feels better no new complaints Denies chest pain or shortness of breath Severe cardiomyopathy with ejection fraction of 10 to 15% waiting for LifeVest Case management assisting in discharge planning Vital signs reviewed Hospitalist Physical - Constitutional Vitals: Temp Pulse Resp BP Pulse Ox 98.0 F 96 H 18 98/64 100 05/03/20 03:52 05/03/20 03:52 05/03/20 03:52 05/03/20 03:52 05/03/20 03:52 General appearance: Present: no acute distress, well-nourished - EENT Eyes: Present: PERRL, EOM intact - Neck Neck: Present: supple, normal ROM - Respiratory Respiratory effort: normal Respiratory: bilateral: diminished, rales, negative: rhonchi, wheezing - Cardiovascular Rhythm: regular Heart Sounds: Present: S1 & S2 - Extremities Extremities: no ischemia, No edema - Abdominal General gastrointestinal: soft, non-tender, non-distended, normal bowel sounds - Integumentary Integumentary: Present: clear, warm - Psychiatric Psychiatric: appropriate mood/affect, cooperative - Neurologic Neurologic: CNII-XII intact, moves all extremities HEART Score - HEART Score Troponin: Troponin T < 0.010 ng/mL (0.00-0.029) 04/28/20 21:37 Results - Labs CBC & Chem 7: 05/01/20 04:36 05/03/20 05:44 Labs: Laboratory Last Values WBC 5.4 K/mm3 (4.5-11.0) 05/01/20 04:36 RBC 5.35 M/mm3 (3.65-5.03) H 05/01/20 04:36 Hgb 14.7 gm/dl (11.8-15.2) 05/01/20 04:36 Hct 45.3 % (35.5-45.6) 05/01/20 04:36 MCV 85 fl (84-94) 05/01/20 04:36 MCH 27 pg (28-32) L 05/01/20 04:36 MCHC 32 % (32-34) 05/01/20 04:36 RDW 15.2 % (13.2-15.2) 05/01/20 04:36 Plt Count 234 K/mm3 (140-440) 05/01/20 04:36 Lymph % (Auto) 31.5 % (13.4-35.0) 04/29/20 08:13 [place] % (Auto) 6.6 % (0.0-7.3) 04/29/20 08:13 Eos % (Auto) 0.2 % (0.0-4.3) 04/29/20 08:13 Baso % (Auto) 2.3 % (0.0-1.8) H 04/29/20 08:13 Lymph # (Auto) 2.1 K/mm3 (1.2-5.4) 04/29/20 08:13 [place] # (Auto) 0.4 K/mm3 (0.0-0.8) 04/29/20 08:13 Eos # (Auto) 0.0 K/mm3 (0.0-0.4) 04/29/20 08:13 Baso # (Auto) 0.2 K/mm3 (0.0-0.1) H 04/29/20 08:13 Seg Neutrophils % 59.4 % (40.0-70.0) 04/29/20 08:13 Seg Neutrophils # 3.9 K/mm3 (1.8-7.7) 04/29/20 08:13 PT 14.2 Sec. (12.2-14.9) 05/01/20 04:36 INR 1.11 (0.87-1.13) 05/01/20 04:36 Sodium 142 mmol/L (137-145) 05/03/20 05:44 Potassium 4.5 mmol/L (3.6-5.0) 05/03/20 05:44 Chloride 106.6 mmol/L (98-107) 05/03/20 05:44 Carbon Dioxide 24 mmol/L (22-30) 05/03/20 05:44 Anion Gap 16 mmol/L 05/03/20 05:44 BUN 17 mg/dL (9-20) 05/03/20 05:44 Creatinine 1.4 mg/dL (0.8-1.3) H 05/03/20 05:44 Estimated GFR > 60 ml/min 05/03/20 05:44 BUN/Creatinine Ratio 12 % 05/03/20 05:44 Glucose 105 mg/dL (75-100) H 05/03/20 05:44 POC Glucose 101 mg/dL (70-105) 05/01/20 06:30 Calcium 8.5 mg/dL (8.4-10.2) 05/03/20 05:44 Total Bilirubin 0.50 mg/dL (0.1-1.2) 05/02/20 16:00 Direct Bilirubin < 0.2 mg/dL (0-0.2) 05/02/20 16:00 Indirect Bilirubin 0.3 mg/dL 05/02/20 16:00 AST 55 units/L (5-40) H 05/02/20 16:00 ALT 66 units/L (7-56) H 05/02/20 16:00 Alkaline Phosphatase 72 units/L (35-129) 05/02/20 16:00 Troponin T < 0.010 ng/mL (0.00-0.029) 04/28/20 21:37 NT-Pro-B Natriuret Pep 5653 pg/mL (0-900) H 04/28/20 13:11 Total Protein 6.1 g/dL (6.3-8.2) L 05/02/20 16:00 Albumin 3.5 g/dL (3.9-5) L 05/02/20 16:00 Albumin/Globulin Ratio 1.3 % 05/02/20 16:00 Urine Opiates Screen Negative 04/28/20 13:39 Urine Methadone Screen Negative 04/28/20 13:39 Ur Barbiturates Screen Negative 04/28/20 13:39 Ur Phencyclidine Scrn Negative 04/28/20 13:39 Ur Amphetamines Screen Positive 04/28/20 13:39 U Benzodiazepines Scrn Negative 04/28/20 13:39 Urine Cocaine Screen Negative 04/28/20 13:39 U Marijuana (THC) Screen Positive 04/28/20 13:39 Drugs of Abuse Note Disclamer 04/28/20 13:39 - Diagnostic Impressions Diagnostic Impressions: Echocardiogram 04/28/20 23:47 Transthoracic Echocardiogram Indication: Evaluate LV Function BP: 120/84 Conclusions *Global left ventricular systolic function is severely decreased. *The estimated ejection fraction is 15-20%. *The left ventricular size is mild to moderately dilated. *There is evidence of mild pulmonary hypertension. *There is mild mitral regurgitation. *There is no pericardial effusion. Findings Left Ventricle: The left ventricular size is mild to moderately dilated. There are multiple regional wall motion abnormalities. Global left ventricular systolic function is severely decreased. The estimated ejection fraction is 15-20%. Abnormal left ventricular diastolic function is observed. Left Atrium: The left atrium is normal in size with no visual thrombus identified. Right Ventricle: The right ventricular cavity size is normal. The right ventricular global systolic function is moderately reduced. Right Atrium: The right atrium is moderately dilated. The interatrial septum appears normal. Aortic Valve: The aortic valve structure is normal. There is no evidence of aortic regurgitation. There is no evidence of aortic stenosis. Mitral Valve: There is mild mitral regurgitation. There is no evidence of mitral stenosis. Tricuspid Valve: There is moderate tricuspid regurgitation. The tricuspid regurgitant jet is eccentric. The right ventricular systolic pressure is calculated at 35 mmHg. There is evidence of mild pulmonary hypertension. There is no tricuspid stenosis. Pulmonic Valve: There is mild pulmonic regurgitation. There is no pulmonic stenosis. Pericardium: There is no pericardial effusion. Aorta: There is no dilatation of the aortic root. Measurements Chambers MM Name Value Normal Range Ao root diameter (MM) 3.2 cm (2 - 3.7) LA dimension (AP) MM 3.5 cm (1.9 - 4) LA:Ao ratio (MM) 1.09 ratio - AV cusp separation (MM) 2 cm (1.5 - 2.6) Chambers 2D Name Value Normal Range RVIDd (AP) 2D 2.58 cm (0.9 - 2.6) IVSd (2D) 0.94 cm (0.6 - 1.1) LVPWd (2D) 0.84 cm (0.6 - 1.1) IVS:LVPW ratio (2D) 1.11 ratio - LVIDd (2D) 6.24 cm (3.7 - 5.6) LVIDs (2D) 5.7 cm (2 - 3.8) LV FS (Teichholz) (2D) 8.65 % - LV FS (cube) (2D) 8.65 % - EF Teichholz (2D) 18.8 % - Ao root diameter (2D) 2.7 cm (2 - 3.7) LA dimension (AP) 2D 3.6 cm (1.9 - 4) LA:Ao ratio (2D) 1.33 ratio - Volumes/Mass Name Value Normal Range LA ESV SP 4CH (MOD) 66 ml - LA ESV SP 2CH (MOD) 89 ml - LA ESV BP (MOD) 78 ml - LA ESV BP (MOD) index 37 ml/m2 - Diastolic/Systolic Function Name Value Normal Range MV E-wave Vmax 0.9 m/sec - MV A-wave Vmax 0.46 m/sec - MV E:A ratio 2 ratio - LV septal e' Vmax 0.07 m/sec - LV lateral e' Vmax 0.06 m/sec - LV E:e' septal ratio 12.4 ratio - LV E:e' lateral ratio 15.7 ratio - Aortic Valve Name Value Normal Range AV VTI 13.4 cm - AV mean gradient 3 mmHg - LVOT diameter 2 cm - LVOT VTI 8.6 cm - LVOT mean gradient 1 mmHg - SV LVOT 27 ml - AMANDA (continuity VTI) 2.02 cm2 - Tricuspid Valve Name Value Normal Range TR Vmax 2.84 m/sec - TR peak gradient 32 mmHg - RAP 3 mmHg - RVSP 35 mmHg - Pulmonic Valve/Qp:Qs Name Value Normal Range PV Vmax 0.77 m/sec - PV peak gradient 2 mmHg - WI end-diastolic Vmax 1.6 m/sec - Raymond/IV: Voiding Method Toilet IV Catheter Type [Left Hand] INT / Saline Lock Active Medications - Current Medications Current Medications: Generic Name Dose Route Start Last Admin Trade Name Freq PRN Reason Stop Dose Admin Acetaminophen 650 mg 04/28/20 23:43 Acetaminophen 325 Mg Tab PO Q4H PRN Pain MILD(1-3)/Fever >100.5/GOLD Carvedilol 6.25 mg 04/30/20 14:00 05/02/20 21:33 Carvedilol 6.25 Mg Tab PO Not Given BID ELMER Furosemide 40 mg 05/02/20 10:00 05/02/20 09:40 Furosemide 40 Mg Tab PO 40 mg QDAY ELMER Administration Heparin Sodium (Porcine) 5,000 unit 04/29/20 06:00 05/03/20 05:47 Heparin 5,000 Unit/1 Ml Vial SUB-Q 5,000 unit Q8HR ELMER Administration Magnesium Hydroxide 30 ml 04/28/20 23:43 Magnesium Hydroxide (Mom) Oral Liqd Udc PO Q4H PRN Constipation Morphine Sulfate 2 mg 04/28/20 23:43 Morphine 2 Mg/1 Ml Inj IV Q4H PRN Pain, Moderate (4-6) Ondansetron HCl 4 mg 04/28/20 23:43 Ondansetron 4 Mg/2 Ml Inj IV Q8H PRN Nausea And Vomiting Sodium Chloride 10 ml 04/29/20 10:00 05/02/20 21:33 Sodium Chloride 0.9% 10 Ml Flush Syringe IV 10 ml BID ELMER Administration Sodium Chloride 10 ml 04/28/20 23:43 Sodium Chloride 0.9% 10 Ml Flush Syringe IV PRN PRN LINE FLUSH
[2020-05-03] MEDS: FUROSEMIDE 40 MG TAB PO SCH (10:07)
[2020-05-03] MEDS: carvediloL 6.25 MG TAB PO SCH ×2 (10:07→21:38)
[2020-05-04 05:24] VITALS: BP 93/60
[2020-05-04] MEDS: HEPARIN 5,000 UNIT/1 ML VIAL SUB-Q SCH (05:37)
[2020-05-04] MEDS: carvediloL 6.25 MG TAB PO SCH (09:59)
[2020-05-04] MEDS: FUROSEMIDE 40 MG TAB PO SCH (09:59)
--- NOTE | 2020-05-04 10:11 | Discharge Summary ---
Providers - Providers Date of Admission: 04/30/20 12:00 Date of discharge: 05/04/20 Attending physician: YANNA ELMORE 04/28/20 23:43 Consult to Physician [CONS] Routine Comment: Consulting Provider: PEDRO MUÑIZ Physician Instructions: Reason For Exam: CHF - NEW ONSET 04/29/20 06:08 Consult to Physician [CONS] Routine Comment: Consulting Provider: NAHUM WILDER Physician Instructions: Reason For Exam: Elevated liver enzymes 05/01/20 10:28 Consult to Cardiac Rehabilitation [CONS] Routine Reason For Exam: Cardiac Rehab Evaluation Primary care physician: BANKER MASON Hospitalization Reason for admission: Worsening shortness of breath/worsening leg edema Condition: Stable Pertinent studies: Chest x-ray Echocardiogram Abdominal ultrasound Procedures: Left heart catheterization Hospital course: 49-year-old -[place] male patient with no significant past medical history not on any medications was admitted through emergency room with worsening shortness of breath of 2 weeks duration as well as worsening bilateral lower extremity edema, patient had some nonproductive cough Initial evaluation in the emergency room show pulmonary edema pleural effusion and very high BNP patient also has positive drug screen with methamphetamine and marijuana. Patient was admitted appropriately managed, subsequently underwent echocardiogram which revealed severe cardiomyopathy with ejection fraction of 15 to 20% and mild pulmonary hypertension and mild mitral regurgitation. Patient was started on antifailure medications evaluated by cardiology subsequently underwent left heart catheterization with nonobstructive coronaries however with severe cardiomyopathy with EF of 15 to 20% Patient was closely monitored medications optimized cardiology recommended outpatient evaluation for AICD and LifeVest prior to discharge. Case management has set up the LifeVest, today patient is comfortable no new complaints vital signs stable Denies chest pain or shortness of breath, Physical examination prior to discharge is unremarkable Patient strongly advised to quit recreational drug use marijuana and amphetamines. Patient also counseled smoking cessation advised nicotine patch as needed Cleared by cardiology for discharge and follow-up with them per schedule Patient is hemodynamically and clinically stable at discharge Discharge diagnosis; --Acute systolic congestive heart failure Current Visit: Yes Status: Acute --Severe nonischemic cardiomyopathy; EF 15 to 20% Current Visit: Yes Status: Acute Plan to address problem: --Atypical chest pain Current Visit: Yes Status: Acute Heart cath negative --Acute kidney injury; vasomotor nephropathy Current Visit: Yes Status: Acute Plenty oral fluids, follow-up private nephrology per schedule --Methamphetamine/marijuana abuse Current Visit: Yes Status: Acute Strongly advised to quit recreational drug use --Mild elevated liver enzymes Current Visit: Yes Status: Acute GI has evaluated the patient Probably secondary to alcohol use, liver congestion, Trending down Patient is stable at discharge Disposition: DC-30 STILL A PATIENT Time spent for discharge: 35min Core Measure Documentation - Palliative Care Palliative Care/ Comfort Measures: Not Applicable - Core Measures Any of the following diagnoses?: heart failure - Heart Failure Discharge Requirements FAHAD/ARB for LVSD if EF <40%: No Reason for no FAHAD/ARB: Renal impairment Beta marco a at discharge: Yes Exam - Constitutional Vitals: Temp Pulse Resp BP Pulse Ox 97.3 F L 89 18 93/60 98 05/04/20 03:57 05/04/20 03:57 05/04/20 03:57 05/04/20 03:57 05/04/20 03:57 General appearance: Present: no acute distress, well-nourished - EENT Eyes: Present: PERRL, EOM intact - Neck Neck: Present: supple, normal ROM - Respiratory Respiratory effort: normal Respiratory: bilateral: diminished, rales, negative: rhonchi, wheezing - Cardiovascular Rhythm: regular Heart Sounds: Present: S1 & S2 - Extremities Extremities: no ischemia, No edema - Abdominal General gastrointestinal: Present: soft, non-tender, non-distended, normal bowel sounds - Integumentary Integumentary: Present: clear, warm - Musculoskeletal Musculoskeletal: strength equal bilaterally, generalized weakness - Psychiatric Psychiatric: appropriate mood/affect, cooperative - Neurologic Neurologic: moves all extremities Plan Activity: no restrictions Diet: low salt, other (Cardiac diet) Additional Instructions: Follow up in our [place] office with Dr. Anson Reardon on 05/18/2020 @ 2:30PM. Strongly advised smoking cessation, nicotine patch as needed. Have worsening symptoms contact MD or go to emergency room. Advised to comply with medications diet follow-up visit Follow up with: PRIMARY CARE, [Primary Care Provider] - 3-5 Days DANA REARDON MD [Staff Physician] - 05/18/20 ( ) XU TRUONG, [Staff Physician] - 7 Days Prescriptions: carvediloL [Coreg] 6.25 mg PO BID #60 tablet Nicotine [Habitrol] 14 mg TD DAILY #30 patch Furosemide [Lasix TAB] 40 mg PO QDAY #30 tablet
== END 2020-05-04 15:59 | disposition home or self-care (01) | DRG 286 ==
LOC: ED 12:29 → 4A 22:52 → OBSVTOIN 04-30 12:00
PROVIDERS: ADMIT Internal Medicine Geriatric Medicine; ATTEND Internal Medicine
PROC: 4A023N7 Measurement of Cardiac Sampling and Pressure, Left Heart, Percutaneous Approach (ICD-10-PCS; principal; 2020-05-01)
PROC: B2111ZZ Fluoroscopy of Multiple Coronary Arteries using Low Osmolar Contrast (ICD-10-PCS; 2020-05-01)
PROC: B2151ZZ Fluoroscopy of Left Heart using Low Osmolar Contrast (ICD-10-PCS; 2020-05-01)
DX: I11.0 Hypertensive heart disease with heart failure (principal); I50.21 Acute systolic (congestive) heart failure; N17.0 Acute kidney failure with tubular necrosis; Z79.82 Long term (current) use of aspirin; R79.89 Other specified abnormal findings of blood chemistry; F15.10 Other stimulant abuse, uncomplicated; I27.20 Pulmonary hypertension, unspecified; Z87.891 Personal history of nicotine dependence; G47.30 Sleep apnea, unspecified; E03.9 Hypothyroidism, unspecified; K21.9 Gastro-esophageal reflux disease without esophagitis; E66.9 Obesity, unspecified; Z68.27 Body mass index [BMI] 27.0-27.9, adult; I42.8 Other cardiomyopathies; F12.10 Cannabis abuse, uncomplicated
CPT/HCPCS: 36415; 71046; 76705; 80048; 80053; 80076; 80307; 82962; 83880; 84132; 84484; 85025; 85027; 85610; 93005; 93306; 93458; 96365; 96375; 96376; G0378; C1894; J1644; J1940; J2250; J3010; J7040; Q9967

== ENCOUNTER 2020-05-09 07:25 | Emergency (ER) | payer OTHER ==
--- NOTE | 2020-05-09 07:33 | Event Note ---
ED Screening Note Date of service: 05/09/20 Time: 07:31 ED Screening Note: 49-year-old -[place] male presents to the emergency room for shortness of breath and defibrillator making noise. This initial assessment/diagnostic orders/clinical plan/treatment(s) is/are subject to change based on patients health status, clinical progression and re- assessment by fellow clinical providers in the ED. Further treatment and workup at subsequent clinical providers discretion. Patient/guardian urged not to elope from the ED as their condition may be serious if not clinically assessed and managed. Initial orders include:
--- NOTE | 2020-05-09 07:55 | Emergency Department Report ---
ED General Adult HPI - General Chief complaint: Dyspnea/Respdistress Stated complaint: DIZZINESS/SOB Time Seen by Provider: 05/09/20 07:36 Source: patient, family Mode of arrival: Wheelchair Limitations: No Limitations - History of Present Illness Initial comments: This is a 49-year-old gentleman who does admit to having panic attacks in the past. He describes an episode this morning that started with nausea and proceeded to be associated with apparent hyperventilation/shortness of breath. After that the patient states he went to the bathroom and had a normal bowel movement. Subsequently, he was feeling dizzy. A family member summoned EMS. He states that the route jumper actually transported him to this facility in her private vehicle. Patient perceived he whirring sound coming from his external defibrillator. However he clearly states that it did not go off or shocked him. He also states that he has been having right wrist discomfort since his heart cath which utilized his radial artery apparently. The patient does not report right arm swelling. He denies chest pain. He did state he took his carvedilol and Lasix prior to arrival. The patient has a history of congestive heart failure, nonischemic cardiomyopathy EF 15-20, atypical chest pain, acute kidney injury and polysubstance abuse with elevated LFTs. The patient was discharged from this facility he states on Thursday. He states he did fine on Thursday. Recent hospitalization: Hospital course: 49-year-old -[place] male patient with no significant past medical history not on any medications was admitted through emergency room with worsening shortness of breath of 2 weeks duration as well as worsening bilateral lower extremity edema, patient had some nonproductive cough Initial evaluation in the emergency room show pulmonary edema pleural effusion and very high BNP patient also has positive drug screen with methamphetamine and marijuana. Patient was admitted appropriately managed, subsequently underwent echocardiogram which revealed severe cardiomyopathy with ejection fraction of 15 to 20% and mild pulmonary hypertension and mild mitral regurgitation. Patient was started on antifailure medications evaluated by cardiology subseque ntly underwent left heart catheterization with nonobstructive coronaries however with severe cardiomyopathy with EF of 15 to 20% Patient was closely monitored medications optimized cardiology recommended outpatient evaluation for AICD and LifeVest prior to discharge. Case management has set up the LifeVest, today patient is comfortable no new complaints vital signs stable Denies chest pain or shortness of breath, Physical examination prior to discharge is unremarkable Patient strongly advised to quit recreational drug use marijuana and amphetamines. Patient also counseled smoking cessation advised nicotine patch as needed Cleared by cardiology for discharge and follow-up with them per schedule Patient is hemodynamically and clinically stable at discharge Discharge diagnosis; --Acute systolic congestive heart failure Current Visit: Yes Status: Acute --Severe nonischemic cardiomyopathy; EF 15 to 20% Current Visit: Yes Status: Acute Plan to address problem: --Atypical chest pain Current Visit: Yes Status: Acute Heart cath negative --Acute kidney injury; vasomotor nephropathy Current Visit: Yes Status: Acute Plenty oral fluids, follow-up private nephrology per schedule --Methamphetamine/marijuana abuse Current Visit: Yes Status: Acute Strongly advised to quit recreational drug use --Mild elevated liver enzymes Current Visit: Yes Status: Acute GI has evaluated the patient Probably secondary to alcohol use, liver congestion, Trending down Patient is stable at discharge Disposition: DC-30 STILL A PATIENT Time spent for discharge: 35min Severity scale (0 -10): 4 - Related Data Previous Rx's Medication Instructions Recorded Last Taken Type Aspirin EC [Ecotrin] 325 mg PO QDAY tablet 06/26/16 Unknown Rx Furosemide [Lasix TAB] 40 mg PO QDAY #30 tablet 05/04/20 Unknown Rx carvediloL [Coreg] 6.25 mg PO BID #60 tablet 05/04/20 Unknown Rx Allergies Allergy/AdvReac Type Severity Reaction Status Date / Time No Known Allergies Allergy Verified 05/09/20 07:26 ED Review of Systems ROS: Stated complaint: DIZZINESS/SOB Other details as noted in HPI Constitutional: weakness. denies: chills, fever Eyes: denies: eye pain, vision change ENT: denies: ear pain, throat pain Respiratory: shortness of breath (Sounds like hyperventilation). denies: cough, wheezing Cardiovascular: denies: chest pain, palpitations Endocrine: no symptoms reported Gastrointestinal: nausea. denies: abdominal pain, diarrhea, constipation, hematemesis, melena, hematochezia Genitourinary: denies: urgency, dysuria Musculoskeletal: as per HPI. denies: back pain, joint swelling, arthralgia Skin: denies: rash, lesions Neurological: denies: headache, weakness, paresthesias Psychiatric: denies: anxiety, depression Hematological/Lymphatic: denies: easy bleeding, easy bruising ED Past Medical Hx - Past Medical History Hx Hypertension: Yes Hx Heart Attack/AMI: No Hx Congestive Heart Failure: No Hx Diabetes: No Hx Liver Disease: No Hx Renal Disease: No Hx Sickle Cell Disease: No Hx Seizures: No Hx Asthma: No Hx COPD: No - Surgical History Hx Pacemaker: No Hx Internal Defibrillator: No Additional Surgical History: Pelvic Fx, Knot on chest - Social History Smoking Status: Current Some Day Smoker Substance Use Type: None - Medications Home Medications: Home Medications Medication Instructions Recorded Confirmed Last Taken Type Aspirin EC [Ecotrin] 325 mg PO QDAY tablet 06/26/16 05/09/20 Unknown Rx Furosemide [Lasix TAB] 40 mg PO QDAY #30 tablet 05/04/20 05/09/20 Unknown Rx carvediloL [Coreg] 6.25 mg PO BID #60 tablet 05/04/20 05/09/20 Unknown Rx ED Physical Exam - General Limitations: No Limitations General appearance: alert, in no apparent distress - Head Head exam: Present: atraumatic, normocephalic - Eye Eye exam: Present: normal appearance. Absent: scleral icterus - ENT ENT exam: Present: mucous membranes moist - Neck Neck exam: Present: normal inspection. Absent: tenderness, meningismus - Respiratory Respiratory exam: Present: normal lung sounds bilaterally. Absent: respiratory distress - Cardiovascular Cardiovascular Exam: Present: regular rate, normal rhythm. Absent: systolic murmur, diastolic murmur, rubs, gallop - GI/Abdominal GI/Abdominal exam: Present: soft, normal bowel sounds. Absent: distended, tenderness, guarding, rebound, rigid - Rectal Rectal exam: Present: deferred - Extremities Exam Extremities exam: Present: normal inspection, other (The right upper extremity exam is normal. Bilaterally the hand pulses are symmetrical. Patient's blood pressure is about 100 systolic so they are not bounding. Neurovascular exam is intact.) - Back Exam Back exam: Present: normal inspection - Neurological Exam Neurological exam: Present: alert, oriented X3, CN II-XII intact. Absent: motor sensory deficit - Psychiatric Psychiatric exam: Present: normal affect, normal mood - Skin Skin exam: Present: warm, dry, intact, normal color. Absent: rash ED Course Vital Signs 05/09/20 05/09/20 05/09/20 07:32 07:46 07:47 Pulse Rate 94 H 99 H Respiratory 22 17 16 Rate Blood Pressure 99/70 Blood Pressure 99/70 [Right] O2 Sat by Pulse 98 Oximetry 05/09/20 05/09/20 05/09/20 08:00 08:01 08:15 Pulse Rate 89 94 H 90 Respiratory 18 13 Rate Blood Pressure 95/65 Blood Pressure [Right] O2 Sat by Pulse 100 Oximetry 05/09/20 05/09/20 05/09/20 08:31 08:34 08:45 Pulse Rate 88 87 88 Respiratory 18 16 19 Rate Blood Pressure Blood Pressure 85/60 [Right] O2 Sat by Pulse 100 Oximetry 05/09/20 05/09/20 05/09/20 09:08 09:15 09:20 Pulse Rate 86 90 Respiratory 17 17 Rate Blood Pressure Blood Pressure 80/52 93/57 [Right] O2 Sat by Pulse 100 100 Oximetry 05/09/20 05/09/20 05/09/20 09:30 09:45 10:00 Pulse Rate 94 H 96 H 95 H Respiratory 21 18 19 Rate Blood Pressure 83/51 87/55 Blood Pressure [Right] O2 Sat by Pulse 100 100 100 Oximetry 05/09/20 05/09/20 05/09/20 10:15 10:31 10:45 Pulse Rate 98 H 97 H 96 H Respiratory 18 19 19 Rate Blood Pressure 83/52 88/61 93/52 Blood Pressure [Right] O2 Sat by Pulse 100 100 99 Oximetry 05/09/20 05/09/20 05/09/20 11:00 11:15 11:30 Pulse Rate 98 H 103 H 96 H Respiratory 20 21 18 Rate Blood Pressure 85/49 Blood Pressure [Right] O2 Sat by Pulse 99 99 99 Oximetry 05/09/20 05/09/20 05/09/20 11:45 12:00 12:15 Pulse Rate 97 H 96 H 94 H Respiratory 19 21 19 Rate Blood Pressure 85/50 84/54 83/51 Blood Pressure [Right] O2 Sat by Pulse 100 97 100 Oximetry 05/09/20 05/09/20 05/09/20 12:30 12:45 13:00 Pulse Rate 99 H 96 H 93 H Respiratory 9 L 11 L 20 Rate Blood Pressure 96/62 96/62 101/62 Blood Pressure [Right] O2 Sat by Pulse 100 100 100 Oximetry - Reevaluation(s) Reevaluation #1: I spoke to cardiology. They recommended an additional bolus of fluid. They stated they would like to follow the patient in the office if his blood pressure improves. 05/09/20 12:07 Reevaluation #2: Patient's blood pressure improved with and additional bolus of fluids. He is normotensive. He ate. He is awake and alert. He urinated quite a bit. I think he was over diuresed. His urine drug screen results were discussed with him. I did emphasize the extreme risks of continued substance abuse with his severe cardiomyopathy. 05/09/20 13:04 Reevaluation #3: Patient is discharged as per recommendations of cardiology. Nurse practitioner did speak with Dr. Vargas. The patient is clinically stable for discharge. 05/09/20 13:07 ED Medical Decision Making - Lab Data Result diagrams: 05/09/20 08:03 05/09/20 08:03 - EKG Data -: EKG Interpreted by Me EKG shows normal: sinus rhythm Rate: normal - EKG Data Interpretation: other (RSR V1 V2, biatrial abnormality. Suspect LVH with tall T waves V5 V6. Nonspecific repolarization abnormality) - Radiology Data Radiology results: report reviewed (Chest x-ray no acute process per radiolo gist, images not available.) Critical care attestation.: If time is entered above; I have spent that time in minutes in the direct care of this critically ill patient, excluding procedure time. ED Disposition Clinical Impression: Methamphetamine abuse, Cocaine abuse Cardiomyopathy Qualifiers: Cardiomyopathy type: unspecified Qualified Code(s): I42.9 - Cardiomyopathy, unspecified Hypotension Qualifiers: Hypotension type: other hypotension type Qualified Code(s): I95.89 - Other hypotension Disposition: DC-01 TO HOME OR SELFCARE Is pt being admited?: No Does the pt Need Aspirin: No Condition: Stable Instructions: Stimulant Use Disorder-Cocaine, Hypotension, [id number], Amphetamines Use Disorder Additional Instructions: Hold Lasix. Cut your carvedilol dose in half. See work adjustment instructor as soon as possible. Call office. Referrals: MARITZA REARDON MD [Primary Care Provider] - 24 Hours RAMILA VARGAS MD [Staff Physician] - 24 Hours
--- NOTE | 2020-05-09 08:17 | XRay Report ---
CHEST 1 VIEW INDICATION: Shortness of breath. COMPARISON: 04/26/2019 FINDINGS: Support devices: None. Heart: Stable cardiomegaly. Lungs/Pleura: The lungs are clear with no evidence for infiltrate, pleural fluid or pneumothorax. Additional findings: None. IMPRESSION: Mild cardiomegaly. Lungs clear. Signer Name: Campos Moran Jr, MD Signed: 05/09/2020 8:12 AM Workstation Name: [id number]
[2020-05-09] MEDS ORDERED: SODIUM CHLORIDE 0.9% 250ML 250 ML IV ONE (08:36)
[2020-05-09 08:54] LABS: Basophils % (Auto) 0.9 % (0.0-1.8); Eosinophils % (Auto) 0.6 % (0.0-4.3); Hematocrit 46.4 % (35.5-45.6); Hemoglobin 14.9 gm/dl (11.8-15.2); Lymphocytes # (Auto) 1.4 K/mm3 (1.2-5.4); Lymphocytes % (Auto) 29.7 % (13.4-35.0); Mean Corpuscular HGB Conc 32 % (32-34); Mean Corpuscular Volume 86 fl (84-94); Monocytes # (Auto) 0.4 K/mm3 (0.0-0.8); Monocytes % (Auto) 7.3 % (0.0-7.3); Platelet Count 225 K/mm3 (140-440); Red Blood Count 5.41 M/mm3 (3.65-5.03); Red Cell Distribution Width 15.6 % (13.2-15.2)
[2020-05-09 09:03] LABS: Bilirubin,Urine NEG (Negative); Blood,Urine NEG (Negative); Color,Urine Yellow (Yellow); Mucus,Urine FEW /HPF; Urobilinogen,Urine < 2.0 mg/dL (<2.0); WBC,Urine < 1.0 /HPF (0.0-6.0)
[2020-05-09 09:05] LABS: INR 1.1 (0.87-1.13)
[2020-05-09 09:06] LABS: Partial Thromboplastin Time 27.6 Sec. (24.2-36.6)
[2020-05-09 09:14] LABS: Alanine Aminotransferase 106 units/L (7-56); BUN/Creatinine Ratio 16; Blood Urea Nitrogen 22 mg/dL (9-20); Calcium 8.9 mg/dL (8.4-10.2); Creatine Kinase MB 3.2 ng/mL (0.0-4.0); Hemolysis Index 4
[2020-05-09 09:22] LABS: Benzodiazepines Screen,Urine Negative; Cannabinoid Screen,Urine Negative; Methadone Screen,Urine Negative; Opiate Screen,Urine Negative
[2020-05-09 09:36] LABS: Bilirubin,Direct < 0.2 mg/dL (0-0.2)
[2020-05-09 09:52] LABS: Chol/HDL Ratio 2.35 %
[2020-05-09 10:24] LABS: Cocaine Screen,Urine PRESUMPTIVE POSITIVE
[2020-05-09 10:25] LABS: Amphetamine Screen,Urine PRESUMPTIVE POSITIVE
[2020-05-09] MEDS ORDERED: SODIUM CHLORIDE 0.9% 500 ML 500 ML IV ONE (12:04)
[2020-05-09 13:01] VITALS: BP 101/62
== END 2020-05-09 13:17 | disposition home or self-care (01) ==
LOC: ED 07:25
DX: I95.9 Hypotension, unspecified (principal); I42.8 Other cardiomyopathies; F15.10 Other stimulant abuse, uncomplicated; F14.10 Cocaine abuse, uncomplicated; I10 Essential (primary) hypertension; F17.200 Nicotine dependence, unspecified, uncomplicated; Z98.890 Other specified postprocedural states; Z79.899 Other long term (current) drug therapy
CPT/HCPCS: 36415; 71045; 80048; 80061; 80076; 80307; 81001; 82550; 82553; 83735; 83880; 84484; 85025; 85379; 85610; 85730; 93005; 96360; 99284; J7040; J7050

== ENCOUNTER 2020-06-02 00:50 | Inpatient (IN) | payer SELFPAY ==
[2020-06-02] MEDS ORDERED: ROCURONIUM 50 MG/5 ML INJ IV ONE ×4 (00:54→01:03)
[2020-06-02] MEDS ORDERED: ETOMIDATE 20 MG/10 ML INJ IV ONE ×2 (00:54→01:00)
[2020-06-02] MEDS ORDERED: LIP THERAPY VASELINE TP PRN (00:57)
[2020-06-02] MEDS ORDERED: MINERAL OIL/PETROLATUM, WHITE OPHTH OINT 3.5 GM OU PRN (00:57)
[2020-06-02] MEDS ORDERED: fentaNYL 100 MCG/2 ML INJ IV PRN (00:57)
--- NOTE | 2020-06-02 00:58 | Emergency Department Report ---
ED Chest Pain HPI - General Chief Complaint: Chest Pain Stated Complaint: CHAD PUI?: No Time Seen by Provider: 06/02/20 00:50 Source: patient, EMS Mode of arrival: Stretcher Limitations: Physical Limitation - History of Present Illness Initial Comments: Patient is a 49-year-old male who presents emergency room with complaints of chest pain and shortness of breath. Patient states his chest pain started 1 hour prior to arrival. Patient states the chest pain is a 10 out of 10. Patient denies chest pain or shortness of breath better with rest. Patient dates chest pain or shortness of breath are worse with movement and exertion. Patient diagnosed with congestive heart failure last month and has a LifeVest on. 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 Patient denies recent cocaine use. Patient brought in by EMS. Report received from EMS. EMS states that the patient had a run of V. tach that are resolved. EMS did an EKG. EMS states that his sats have been 70-80 the entire time on a nonrebreather. EMS states that the patient's blood pressure dropped just prior to arrival and they gave him a 250 cc bolus and his blood pressure improved. Patient denies recent travel. Patient denies recent international travel. Patient denies exposure to the novel coronavirus. Patient denies sick contacts. Patient denies fever and chills. Patient denies cough. Patient denies diarrhea. Patient denies coming in contact with anybody with symptoms of the novel coronavirus. MD Complaint: chest pain Onset: during rest Pain Location: left chest Pain Radiation: none Severity: severe Severity scale (0 -10): 10 Quality: sharp Consistency: constant Improves With: rest Worsens With: exertion re: diaphoresis, dyspnea. denies: nausea, vomting, sense of impending doom Other Symptoms: denies: cough, fever, syncope, rash, acid taste in mouth, leg swelling, palpitations, burping Treatments Prior to Arrival: aspirin, oxygen (Oxygen and fluids), other Aspirin use within the Past 7 Days: (1) Yes - Related Data On Oral Contraceptives: No Home Medications Medication Instructions Recorded Confirmed Last Taken Spironolactone [Aldactone] 25 mg PO QDAY 06/02/20 06/02/20 Unknown carvediloL [Coreg] 12.5 mg PO BID 06/02/20 06/02/20 Unknown Previous Rx's Medication Instructions Recorded Last Taken Type Aspirin EC [Ecotrin] 325 mg PO QDAY tablet 06/26/16 Unknown Rx Furosemide [Lasix TAB] 40 mg PO QDAY #30 tablet 05/04/20 Unknown Rx Allergies Allergy/AdvReac Type Severity Reaction Status Date / Time No Known Allergies Allergy Verified 05/09/20 07:26 Heart Score - HEART Score History: Moderately suspicious EKG: Non-specific Age: 45-65 Risk factors: > 3 risk factors or hx of atherosclerotic disease Troponin: < normal limit HEART Score: 5 ED Review of Systems ROS: Stated complaint: CHAD Other details as noted in HPI ED Past Medical Hx - Past Medical History Hx Hypertension: Yes Hx Heart Attack/AMI: No Hx Congestive Heart Failure: No Hx Diabetes: No Hx Liver Disease: No Hx Renal Disease: No Hx Sickle Cell Disease: No Hx Seizures: No Hx Asthma: No Hx COPD: No - Surgical History Hx Pacemaker: No Hx Internal Defibrillator: No Additional Surgical History: Pelvic Fx, Knot on chest - Social History Smoking Status: Current Some Day Smoker Substance Use Type: None - Medications Home Medications: Home Medications Medication Instructions Recorded Confirmed Last Taken Type Aspirin EC [Ecotrin] 325 mg PO QDAY tablet 06/26/16 06/02/20 Unknown Rx Furosemide [Lasix TAB] 40 mg PO QDAY #30 tablet 05/04/20 06/02/20 Unknown Rx Spironolactone [Aldactone] 25 mg PO QDAY 06/02/20 06/02/20 Unknown History carvediloL [Coreg] 12.5 mg PO BID 06/02/20 06/02/20 Unknown History ED Course Vital Signs 06/02/20 06/02/20 06/02/20 00:51 00:55 01:16 Temperature 97.6 F Pulse Rate 84 90 Respiratory 22 23 Rate Blood Pressure 109/64 108/76 O2 Sat by Pulse 77 L 100 Oximetry 06/02/20 06/02/20 06/02/20 01:30 01:40 01:46 Temperature Pulse Rate 103 H 90 113 H Respiratory 24 43 H Rate Blood Pressure 123/88 123/96 O2 Sat by Pulse 100 100 Oximetry 06/02/20 06/02/20 06/02/20 02:00 02:07 02:16 Temperature Pulse Rate 103 H 103 H Respiratory 24 18 24 Rate Blood Pressure 125/91 118/92 O2 Sat by Pulse 100 100 Oximetry 06/02/20 06/02/20 06/02/20 02:30 02:46 03:00 Temperature Pulse Rate 100 H 100 H 102 H Respiratory 24 24 25 H Rate Blood Pressure 121/89 125/93 127/93 O2 Sat by Pulse 100 100 100 Oximetry 06/02/20 06/02/20 06/02/20 03:16 03:30 03:45 Temperature Pulse Rate 105 H 98 H 103 H Respiratory 25 H 24 24 Rate Blood Pressure 127/93 108/76 125/91 O2 Sat by Pulse 100 100 100 Oximetry 06/02/20 06/02/20 06/02/20 04:00 04:16 04:30 Temperature Pulse Rate 106 H 87 85 Respiratory 20 24 24 Rate Blood Pressure 113/92 115/85 110/86 O2 Sat by Pulse 100 98 98 Oximetry - Reevaluation(s) Reevaluation #1: Initial valuation done. Patient's oxygen saturation 74% on a nonrebreather. Patient having difficulty breathing and staying awake. Patient becoming more lethargic and more difficult to arouse. We will move to intubate the patient to maintain the airway and oxygen support. 06/02/20 00:56 Reevaluation #2: Patient intubated without difficulty. See procedure note. Patient oxygen immediately improved after intubation. Sedation has been ordered and the patient will be placed on fentanyl drip as needed. 06/02/20 01:05 Reevaluation #3: Patient's vital signs have improved. Patient's oxygen saturation is 100%. Patient stable on ventilator. Patient is adequately sedated. 06/02/20 02:05 - Consultations Consultation #1: Hospitalist consulted for admission. Hospitalist to admit patient. 06/02/20 03:05 - Intubation Time Out Performed: Yes Sedative: Etomidate Paralytic: Rocuronium Laryngoscope: fiberoptic video scope Size: 4 Assist Device Used: fiberoptic device ET Tube Size: 7.5 Tube Secured Depth (cm): 22 Tube Secured Location: teeth Tube Placement Confirmation: visualized tube passing t, equal breath sounds bilat, no breath sounds over epi, confirmation by capnometr Patient Tolerated Procedure: well, no complications Intubation Complications: none FABIANA score - Fabiana Score Age > 65: (0) No Aspirin use within the Past 7 Days: (0) No 3 or more CAD Risk Factors: (0) No 2 or more Angina events in past 24 hrs: (1) Yes Known CAD with more than 50% Stenosis: (0) No Elevated Cardiac Markers: (0) No ST Deviation Greater than 0.5mm: (0) No FABIANA Score: 1 ED Medical Decision Making - Lab Data Result diagrams: 06/02/20 01:11 06/02/20 01:11 - EKG Data -: EKG Interpreted by Me EKG shows normal: sinus rhythm, axis, intervals, QRS complexes, ST-T waves Rate: tachycardia - Radiology Data Radiology results: image reviewed interpreted by me: Chest x-ray: No pneumonia, no pneumothorax, no foreign body, ET tube in satisfactory position. - Medical Decision Making Patient is a 49-year-old male who presents emergency room with complaints of chest pain shortness of breath. Patient brought in by EMS and was found to be hypoxic. Patient was also mildly hypotensive for the EMS and they gave him a 250 bolus and his blood pressure responded well. After his evaluation, the patient became increased lethargic and worsening hypoxia. Patient sats were less than 80. Patient was intubated to protect airway and oxygen support. Patient vital signs and oxygen saturation responded well to intubation. Patient was intubated without difficulty. See procedure note. Patient had labs done which were essentially unremarkable except for renal insufficiency and abnormal urine drug screen. Patient's urine drug screen was positive for methamphetamines and marijuana. Patient admitted to the hospitalist service and into the ICU. Critical care time documented due to multiple reevaluations and prolonged time at the bedside. - Differential Diagnosis Overdose, drug abuse, chest pain, SoB, ACS, respiratory failure Critical Care Time: Yes Critical care time in (mins) excluding proc time.: 45 Critical care attestation.: If time is entered above; I have spent that time in minutes in the direct care of this critically ill patient, excluding procedure time. Critical Care Time: 45 minutes ED Disposition Clinical Impression: SOB (shortness of breath), SARAVANAN (acute kidney injury), Methamphetamine abuse Respiratory failure Qualifiers: Chronicity: acute Respiratory failure complication: hypoxia Qualified Code(s): J96.01 - Acute respiratory failure with hypoxia Chest pain Qualifiers: Chest pain type: unspecified Qualified Code(s): R07.9 - Chest pain, unspecified Disposition: OP ADMIT IP TO THIS HOSP Is pt being admited?: Yes Does the pt Need Aspirin: No Condition: Critical Time of Disposition: 03:10
[2020-06-02] MEDS ORDERED: fentaNYL DRIP Premix 2,000 MCG/100 ML BAG IV SCH (01:00)
[2020-06-02 01:28] LABS: Basophils % (Auto) 0.7 % (0.0-1.8); Eosinophils % (Auto) 0.7 % (0.0-4.3); Hematocrit 42.4 % (35.5-45.6); Hemoglobin 13.7 gm/dl (11.8-15.2); Lymphocytes # (Auto) 2.2 K/mm3 (1.2-5.4); Lymphocytes % (Auto) 42.4 % (13.4-35.0); Mean Corpuscular HGB Conc 32 % (32-34); Mean Corpuscular Volume 86 fl (84-94); Monocytes # (Auto) 0.2 K/mm3 (0.0-0.8); Monocytes % (Auto) 4.3 % (0.0-7.3); Platelet Count 180 K/mm3 (140-440); Red Blood Count 4.93 M/mm3 (3.65-5.03); Red Cell Distribution Width 15.5 % (13.2-15.2)
--- NOTE | 2020-06-02 01:31 | XRay Report ---
CHEST 1 VIEW 06/02/2020 12:23 AM INDICATION / CLINICAL INFORMATION: Chest Pain. COMPARISON: 05/09/2020 FINDINGS: SUPPORT DEVICES: ET tube has been placed with tip projecting about 5 cm above the jacqueline. HEART / MEDIASTINUM: Stable mild cardiomegaly. LUNGS / PLEURA: No significant pulmonary or pleural abnormality. No pneumothorax. ADDITIONAL FINDINGS: No significant additional findings. IMPRESSION: 1. Endotracheal tube in expected position. Signer Name: Shakeel Noguera MD Signed: 06/02/2020 1:27 AM Workstation Name: [id number]
[2020-06-02 01:37] LABS: INR 1.22 (0.87-1.13)
[2020-06-02 01:38] LABS: Partial Thromboplastin Time 27.2 Sec. (24.2-36.6)
[2020-06-02 01:59] LABS: Alanine Aminotransferase 78 units/L (7-56); Albumin 3.8 g/dL (3.9-5); BUN/Creatinine Ratio 9; Blood Urea Nitrogen 15 mg/dL (9-20); Calcium 8.4 mg/dL (8.4-10.2); Hemolysis Index 19
[2020-06-02 03:24] LABS: Bacteria,Urine 2+ /HPF (Negative); Bilirubin,Urine NEG (Negative); Blood,Urine NEG (Negative); Color,Urine Yellow (Yellow); Hyaline Casts,Urine 1 /LPF; Mucus,Urine FEW /HPF; Urobilinogen,Urine < 2.0 mg/dL (<2.0)
[2020-06-02 03:29] LABS: Amphetamine Screen,Urine PRESUMPTIVE POSITIVE; Benzodiazepines Screen,Urine PRESUMPTIVE NEGATIVE; Cannabinoid Screen,Urine PRESUMPTIVE POSITIVE; Cocaine Screen,Urine PRESUMPTIVE NEGATIVE; Methadone Screen,Urine PRESUMPTIVE NEGATIVE; Opiate Screen,Urine PRESUMPTIVE NEGATIVE
[2020-06-02] MEDS ORDERED: ONDANSETRON 4 MG/2 ML INJ IV PRN (04:06)
[2020-06-02 04:46] LABS: Creatine Kinase MB 2.5 ng/mL (0.0-4.0)
--- NOTE | 2020-06-02 05:26 | History and Physical Report ---
History of Present Illness Date of examination: 06/02/20 Date of admission: 06/02/20 02:54 Chief complaint: Chief complaint is chest pain History of present illness: History of presenting illness, patient is a 49-year-old male who started having sharp, nonradiating precordial chest pain at home about 1 hour prior to presentation, chest pain was associated with shortness of breath, EMS was called and they found patient to have low blood pressure. Patient has history of polysubstance abuse which includes amphetamine. There is no history of fever or chills, cough, nausea or vomiting and diaphoresis, on arrival at the emergency room patient was intubated and hooked up to the mechanical ventilation because of respiratory failure. Past History Past Medical History: heart failure, hypertension, other (POLYSUBSTANCE ABUSE) Past Surgical History: Other (PELVIC FRACTURE) Social history: smoking, other (POLYSUBSTANCE ABUSE) Medications and Allergies Allergies Allergy/AdvReac Type Severity Reaction Status Date / Time No Known Allergies Allergy Verified 05/09/20 07:26 Home Medications Medication Instructions Recorded Confirmed Last Taken Type Aspirin EC [Ecotrin] 325 mg PO QDAY tablet 06/26/16 06/02/20 Unknown Rx Furosemide [Lasix TAB] 40 mg PO QDAY #30 tablet 05/04/20 06/02/20 Unknown Rx Spironolactone [Aldactone] 25 mg PO QDAY 06/02/20 06/02/20 Unknown History carvediloL [Coreg] 12.5 mg PO BID 06/02/20 06/02/20 Unknown History Active Meds: Active Medications Acetaminophen (Acetaminophen 325 Mg Tab) 650 mg PO Q4H PRN PRN Reason: Fever >101 Aspirin (Aspirin 325 Mg Tab) 325 mg PO QDAY [facility] Fentanyl (Fentanyl 100 Mcg/2 Ml Inj) 50 mcg IV Q10MIN PRN PRN Reason: ANALGESIA Heparin Sodium (Porcine) (Heparin 5,000 Unit/1 Ml Vial) 5,000 unit SUB-Q Q12HR [facility] Hydrophilic Ointment (Lip Therapy Vaseline) 1 applic TP Q2HR PRN PRN Reason: Dry Lips Fentanyl Citrate (Fentanyl Drip Premix) 2,000 mcg in 100 mls @ 4.309 mls/hr IV TITR [facility]; Protocol Last Admin: 06/02/20 01:30 Dose: 1 mcg/kg/hr, 4.309 mls/hr Documented by: Multi-Ingred Cream/Lotion/Oil/Oint (Mineral Oil/Petrolatum, White Ophth Oint 3.5 Gm) 1 applic OU Q4HR PRN PRN Reason: Dry Eye(s) Nitroglycerin (Nitroglycerin 2% Oint 1 Gm) 0.5 inch TP QIDNTG [facility]; Protocol Ondansetron HCl (Ondansetron 4 Mg/2 Ml Inj) 4 mg IV Q8H PRN PRN Reason: Nausea And Vomiting Review of Systems Constitutional: weakness, no fever, no chills, no sweats, no night sweats Eyes: bilateral: other (NO BILATERAL EYE SYMPTOMS) Ears, nose, mouth and throat: no ear pain Cardiovascular: chest pain, shortness of breath, no palpitations, no rapid/irregular heart beat, no syncope, no lightheadedness Respiratory: shortness of breath, dyspnea on exertion, no cough, no cough with sputum, no excessive sputum, no hemoptysis, no congestion, no wheezing Gastrointestinal: no abdominal pain, no nausea, no vomiting, no diarrhea, no co nstipation, no change in bowel habits, no melena Genitourinary Male: no hematuria, no flank pain, no discharge, no urinary frequency, no urinary hesitancy, no nocturia Rectal: no pain Musculoskeletal: no neck stiffness, no neck pain Integumentary: no rash, no pruritis, no redness Neurological: weakness, no head injury, no paralysis, no parathesias, no numbness, no tingling, no seizures, no syncope, no vertigo, no headaches Psychiatric: no anxiety, no depression Endocrine: no polydipsia, no polyuria, no nocturia Hematologic/Lymphatic: no easy bruising, no easy bleeding Allergic/Immunologic: no urticaria Exam - Constitutional Vitals: Temp Pulse Resp BP Pulse Ox 97.6 F 85 24 110/86 98 06/02/20 00:55 06/02/20 04:30 06/02/20 04:30 06/02/20 04:30 06/02/20 04:30 General appearance: Present: mild distress - EENT Eyes: Present: PERRL - Neck Neck: Present: supple, normal ROM - Respiratory Respiratory: bilateral: diminished - Cardiovascular Rhythm: regular Heart Sounds: Present: S1 & S2. Absent: gallop, systolic murmur, diastolic murmur, click - Extremities Extremities: no ischemia, No edema Peripheral Pulses: within normal limits - Abdominal General gastrointestinal: Present: soft, non-tender, non-distended. Absent: tender, distended, rigid, hepatomegaly, splenomegaly Male genitourinary: Present: deferred - Rectal Rectal Exam: deferred - Integumentary Integumentary: Present: clear, warm, dry. Absent: erythema - Musculoskeletal Musculoskeletal: generalized weakness HEART Score - HEART Score EKG: Non-specific Age: 45-65 Risk factors: > 3 risk factors or hx of atherosclerotic disease (PATIENT BEING WORKED UP) Troponin: Troponin T < 0.010 ng/mL (0.00-0.029) 06/02/20 04:07 Troponin: < normal limit - Critical Actions Critical Actions: 0-3 pts:0.9-1.7%risk of adverse cardiac event.Candidate for discharge Results - Labs CBC & Chem 7: 06/02/20 01:11 06/02/20 01:11 Labs: Laboratory Last Values WBC 5.3 K/mm3 (4.5-11.0) 06/02/20 01:11 RBC 4.93 M/mm3 (3.65-5.03) 06/02/20 01:11 Hgb 13.7 gm/dl (11.8-15.2) 06/02/20 01:11 Hct 42.4 % (35.5-45.6) 06/02/20 01:11 MCV 86 fl (84-94) 06/02/20 01:11 MCH 28 pg (28-32) 06/02/20 01:11 MCHC 32 % (32-34) 06/02/20 01:11 RDW 15.5 % (13.2-15.2) H 06/02/20 01:11 Plt Count 180 K/mm3 (140-440) 06/02/20 01:11 Lymph % (Auto) 42.4 % (13.4-35.0) H 06/02/20 01:11 [place] % (Auto) 4.3 % (0.0-7.3) 06/02/20 01:11 Eos % (Auto) 0.7 % (0.0-4.3) 06/02/20 01:11 Baso % (Auto) 0.7 % (0.0-1.8) 06/02/20 01:11 Lymph # (Auto) 2.2 K/mm3 (1.2-5.4) 06/02/20 01:11 [place] # (Auto) 0.2 K/mm3 (0.0-0.8) 06/02/20 01:11 Eos # (Auto) 0.0 K/mm3 (0.0-0.4) 06/02/20 01:11 Baso # (Auto) 0.0 K/mm3 (0.0-0.1) 06/02/20 01:11 Seg Neutrophils % 51.9 % (40.0-70.0) 06/02/20 01:11 Seg Neutrophils # 2.7 K/mm3 (1.8-7.7) 06/02/20 01:11 PT 15.4 Sec. (12.2-14.9) H 06/02/20 01:11 INR 1.22 (0.87-1.13) H 06/02/20 01:11 APTT 27.2 Sec. (24.2-36.6) 06/02/20 01:11 Sodium 138 mmol/L (137-145) 06/02/20 01:11 Potassium 4.2 mmol/L (3.6-5.0) 06/02/20 01:11 Chloride 103.6 mmol/L (98-107) 06/02/20 01:11 Carbon Dioxide 21 mmol/L (22-30) L 06/02/20 01:11 Anion Gap 18 mmol/L 06/02/20 01:11 BUN 15 mg/dL (9-20) 06/02/20 01:11 Creatinine 1.7 mg/dL (0.8-1.3) H 06/02/20 01:11 Estimated GFR 52 ml/min 06/02/20 01:11 BUN/Creatinine Ratio 9 % 06/02/20 01:11 Glucose 135 mg/dL (75-100) H 06/02/20 01:11 Calcium 8.4 mg/dL (8.4-10.2) 06/02/20 01:11 Total Bilirubin 0.60 mg/dL (0.1-1.2) 06/02/20 01:11 AST 95 units/L (5-40) H 06/02/20 01:11 ALT 78 units/L (7-56) H 06/02/20 01:11 Alkaline Phosphatase 98 units/L (35-129) 06/02/20 01:11 Total Creatine Kinase 96 units/L (55-170) 06/02/20 04:07 CK-MB (CK-2) 2.5 ng/mL (0.0-4.0) 06/02/20 04:07 CK-MB (CK-2) Rel Index 2.6 (0-4) 06/02/20 04:07 Troponin T < 0.010 ng/mL (0.00-0.029) 06/02/20 04:07 Total Protein 6.2 g/dL (6.3-8.2) L 06/02/20 01:11 Albumin 3.8 g/dL (3.9-5) L 06/02/20 01:11 Albumin/Globulin Ratio 1.6 % 06/02/20 01:11 Urine Color Yellow (Yellow) 06/02/20 02:56 Urine Turbidity Slightly-cloudy (Clear) 06/02/20 02:56 Urine pH 5.0 (5.0-7.0) 06/02/20 02:56 Ur Specific [place] 1.010 (1.003-1.030) 06/02/20 02:56 Urine Protein 100 mg/dl mg/dL (Negative) 06/02/20 02:56 Urine Glucose (UA) Neg mg/dL (Negative) 06/02/20 02:56 Urine Ketones Neg mg/dL (Negative) 06/02/20 02:56 Urine Blood Neg (Negative) 06/02/20 02:56 Urine Nitrite Neg (Negative) 06/02/20 02:56 Urine Bilirubin Neg (Negative) 06/02/20 02:56 Urine Urobilinogen < 2.0 mg/dL (<2.0) 06/02/20 02:56 Ur Leukocyte Esterase Neg (Negative) 06/02/20 02:56 Urine WBC (Auto) 5.0 /HPF (0.0-6.0) 06/02/20 02:56 Urine RBC (Auto) 1.0 /HPF (0.0-6.0) 06/02/20 02:56 U Epithel Cells (Auto) < 1.0 /HPF (0-13.0) 06/02/20 02:56 Urine Bacteria (Auto) 2+ /HPF (Negative) 06/02/20 02:56 Hyaline Casts 1 /LPF 06/02/20 02:56 Urine Mucus Few /HPF 06/02/20 02:56 Urine Yeast (Budding) Few /HPF 06/02/20 02:56 Urine Opiates Screen Presumptive negative 06/02/20 02:56 Urine Methadone Screen Presumptive negative 06/02/20 02:56 Ur Barbiturates Screen Presumptive negative 06/02/20 02:56 Ur Phencyclidine Scrn Presumptive negative 06/02/20 02:56 Ur Amphetamines Screen Presumptive positive 06/02/20 02:56 U Benzodiazepines Scrn Presumptive negative 06/02/20 02:56 Urine Cocaine Screen Presumptive negative 06/02/20 02:56 U Marijuana (THC) Screen Presumptive positive 06/02/20 02:56 Drugs of Abuse Note Disclamer 06/02/20 02:56 Assessment and Plan - Patient Problems (1) SARAVANAN (acute kidney injury) Current Visit: Yes Status: Acute Plan to address problem: 1. NEPHROLOGY CONSULT 2. I.V NORMAL SALINE 3. BMP LEVEL MONITOR (2) Chest pain Current Visit: Yes Status: Acute Qualifiers: Chest pain type: unspecified Plan to address problem: 1. SERIAL CARDIAC ENZYMES 2. NITROPASTE 3. ASPIRIN PO 4. CARDIOLOGY CONSULT (3) Respiratory failure Current Visit: Yes Status: Acute Qualifiers: Chronicity: acute Respiratory failure complication: hypoxia Qualified Code(s): J96.01 - Acute respiratory failure with hypoxia Plan to address problem: 1. CRITICAL CARE CONSULT 2. RESPIRATORY THERAPY CONSULT FOR VENTILATOR MANAGMENT
[2020-06-02 06:50] LABS: Creatine Kinase MB 2.5 ng/mL (0.0-4.0)
[2020-06-02] MEDS ORDERED: FUROSEMIDE 20 MG/2 ML INJ IV NR ×2 (08:19→10:13)
--- NOTE | 2020-06-02 08:19 | Consultation ---
History of Present Illness Consult date: 06/02/20 History of present illness: 49 y/o male with known systolic heart failure, admitted with acute respiratory failure after presenting to the ED awake and alert with chest pain. Patient also wearing a life vest. Was just admitted last month where cath showed clean coronaries but EF 15%. Per reports had 10/10 chest pain. Per ED physician note, patient was hypoxic at 74 and lethargic. No ABG taken, but intubated and then started on sedation. Post intubation ABG was good but not sure how long patient had been ventilated when that occurred. This am sedated on Fent at 3. All other vitals are stable and down to 30% FiO2. Remainder is negative. Past History Past Medical History: heart failure, hypertension, other (POLYSUBSTANCE ABUSE) Past Surgical History: Other (PELVIC FRACTURE) Social history: smoking, other (POLYSUBSTANCE ABUSE) Medications and Allergies Allergies Allergy/AdvReac Type Severity Reaction Status Date / Time No Known Allergies Allergy Verified 05/09/20 07:26 Home Medications Medication Instructions Recorded Confirmed Last Taken Type Aspirin EC [Ecotrin] 325 mg PO QDAY tablet 06/26/16 06/02/20 Unknown Rx Furosemide [Lasix TAB] 40 mg PO QDAY #30 tablet 05/04/20 06/02/20 Unknown Rx Spironolactone [Aldactone] 25 mg PO QDAY 06/02/20 06/02/20 Unknown History carvediloL [Coreg] 12.5 mg PO BID 06/02/20 06/02/20 Unknown History Active Meds: Active Medications Acetaminophen (Acetaminophen 325 Mg Tab) 650 mg PO Q4H PRN PRN Reason: Fever >101 Aspirin (Aspirin 325 Mg Tab) 325 mg PO QDAY [facility] Fentanyl (Fentanyl 100 Mcg/2 Ml Inj) 50 mcg IV Q10MIN PRN PRN Reason: ANALGESIA Heparin Sodium (Porcine) (Heparin 5,000 Unit/1 Ml Vial) 5,000 unit SUB-Q Q12HR [facility] Hydrophilic Ointment (Lip Therapy Vaseline) 1 applic TP Q2HR PRN PRN Reason: Dry Lips Fentanyl Citrate (Fentanyl Drip Premix) 2,000 mcg in 100 mls @ 4.309 mls/hr IV TITR [facility]; Protocol Last Titration: 06/02/20 05:36 Dose: 3 mcg/kg/hr, 12.927 mls/hr Documented by: Multi-Ingred Cream/Lotion/Oil/Oint (Mineral Oil/Petrolatum, White Ophth Oint 3.5 Gm) 1 applic OU Q4HR PRN PRN Reason: Dry Eye(s) Nitroglycerin (Nitroglycerin 2% Oint 1 Gm) 0.5 inch TP QIDNTG [facility]; Protocol Ondansetron HCl (Ondansetron 4 Mg/2 Ml Inj) 4 mg IV Q8H PRN PRN Reason: Nausea And Vomiting Review of Systems ROS unobtainable: due to endotracheal tube, due to mental status Physical Examination Vital signs: Vital Signs Pulse Resp BP Pulse Ox 84 22 109/64 77 L 06/02/20 00:51 06/02/20 00:51 06/02/20 00:51 06/02/20 00:51 General appearance: comatose ENT: other (orally intubated and sedated) Neck: supple Effort: normal Ascultation: Bilateral: clear Percussion: Bilateral: not dull Cardiovascular: regular rate and rhythm Gastrointestinal: normoactive bowel sounds, soft Results - Laboratory Findings CBC and BMP: 06/02/20 01:11 06/02/20 01:11 ABG ABG pH 7.350 (7.320-7.450) 06/02/20 02:00 POC ABG pCO2 37.8 mmHg (32.0-48.0) 06/02/20 02:00 POC ABG pO2 252.0 mmHg (83-108) H 06/02/20 02:00 POC ABG HCO3 20.4 06/02/20 02:00 PT/INR, D-dimer PT 15.4 Sec. (12.2-14.9) H 06/02/20 01:11 INR 1.22 (0.87-1.13) H 06/02/20 01:11 Abnormal lab findings: Abnormal Labs 06/02/20 06/02/20 06/02/20 01:11 01:11 01:11 RDW 15.5 H Lymph % (Auto) 42.4 H PT 15.4 H INR 1.22 H POC ABG pO2 ABG Sodium ABG Glucose Carbon Dioxide 21 L Creatinine 1.7 H Glucose 135 H AST 95 H ALT 78 H Total Protein 6.2 L Albumin 3.8 L Arterial Blood Glucose 06/02/20 02:00 RDW Lymph % (Auto) PT INR POC ABG pO2 252.0 H ABG Sodium 135.5 L ABG Glucose 146 H Carbon Dioxide Creatinine Glucose AST ALT Total Protein Albumin Arterial Blood Glucose 146 H - Diagnostic Findings Chest x-ray: image reviewed (cardiomegaly but clear lung andrade) Assessment and Plan 49 y/o male with systolic heart failure and cardiomyopathy, intubated in ED for hypoxemia and altered mental state. 1. Stop all sedation 2. Will restart home medications, especially diuretic therapy 3. Extubate once more awake, Bipap available PRN 4. Follow up any new cardiology recs. CCT 31 minutes.
--- NOTE | 2020-06-02 09:58 | Progress Note ---
Assessment and Plan Assessment and plan: --Acute hypoxic respiratory failure ; Current Visit: Yes Status: Acute Plan to address problem: requiring intubation and mechanical ventilation Secondary to acute on chronic systolic congestive heart failure Patient was evaluated by pulmonary critical Extubated this morning, on 2 L nasal cannula oxygen Continues to have mild shortness of breath --acute on chronic systolic congestive heart failure Current Visit: Yes Status: Acute Plan to address problem: Antifailure medication diuretics beta-blockers, no FAHAD inhibitors in view of CKD Input output monitoring, fluid restriction Cardiology consulted --Persistent tachycardia; Current Visit: Yes Status: Acute Plan to address problem: Due to underlying illness Closely monitor continue beta-blockers --Severe nonischemic cardiomyopathy; EF 15 to 20% Current Visit: Yes Status: Acute Plan to address problem: Patient is on LifeVest Outpatient 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 severe cardiomyopathy with EF of 15 to 20% --Acute on chronic kidney disease stage III; Current Visit: Yes Status: Acute Plan to address problem: Due to vasomotor nephropathy Closely monitor renal function, avoid nephrotoxins Nephrology consult as needed --h/o Methamphetamine/marijuana abuse Current Visit: Yes Status: Acute Plan to address problem: Will alcohol and drug counselor the patient when patient is stable --Mild elevated liver enzymes Current Visit: Yes Status: Acute Plan to address problem: GI has evaluated the patient during previous admission 3 4 weeks ago Probably secondary to alcohol use, liver congestion, Closely monitor --DVT prophylaxis Current Visit: Yes Status: Acute . Plan to address problem: Heparin We will closely monitor the patient and adjust the management as needed Critical care time 40 minutes Will monitor closely if stable may transition to telemetry in 2- 3 hours The high probability of a clinically significant, sudden or life threatening deterioration of the [cardiac ,pulmonary, renal, liver, metabolic] system(s) required my full and direct attention, intervention and personal management. The aggregate critical care time was [40] minutes. This time is in addition to time spent performing reported procedures but includes the following: [X] Data Review and interpretation [X] Patient assessment and monitoring of vital signs [X] Documentation [X] Medication orders and management Plan of care reviewed with the patient's nurse and the case management History Interval history: I have seen and examined the patient at the bedside this morning Patient's chart and medications reviewed Patient was admitted with acute hypoxic respiratory failure intubated and placed on ventilator support Pulmonary critical has extubated the patient this morning Patient is feeling better on 2 L of nasal cannula oxygen No new complaints, however patient has persistent tachycardia Vital signs noted Hospitalist Physical - Constitutional Vitals: Temp Pulse Resp BP Pulse Ox 97.7 F 90 24 113/84 98 06/02/20 08:00 06/02/20 09:45 06/02/20 09:45 06/02/20 09:45 06/02/20 09:45 General appearance: Present: no acute distress, well-nourished - EENT Eyes: Present: PERRL, EOM intact - Neck Neck: Present: supple, normal ROM - Respiratory Respiratory effort: normal Respiratory: bilateral: diminished, negative: rales, rhonchi, wheezing - Cardiovascular Rhythm: regular Heart Sounds: Present: S1 & S2 (Tachycardia) - Extremities Extremities: no ischemia, No edema - Abdominal General gastrointestinal: soft, non-tender, non-distended, normal bowel sounds - Integumentary Integumentary: Present: clear, warm - Psychiatric Psychiatric: appropriate mood/affect, cooperative - Neurologic Neurologic: moves all extremities HEART Score - HEART Score EKG: Non-specific Age: 45-65 Risk factors: > 3 risk factors or hx of atherosclerotic disease (PATIENT BEING WORKED UP) Troponin: Troponin T < 0.010 ng/mL (0.00-0.029) 06/02/20 06:19 Troponin: < normal limit - Critical Actions Critical Actions: 0-3 pts:0.9-1.7%risk of adverse cardiac event.Candidate for discharge Results - Labs CBC & Chem 7: 06/02/20 01:11 06/02/20 01:11 Labs: Laboratory Last Values WBC 5.3 K/mm3 (4.5-11.0) 06/02/20 01:11 RBC 4.93 M/mm3 (3.65-5.03) 06/02/20 01:11 Hgb 13.7 gm/dl (11.8-15.2) 06/02/20 01:11 Hct 42.4 % (35.5-45.6) 06/02/20 01:11 MCV 86 fl (84-94) 06/02/20 01:11 MCH 28 pg (28-32) 06/02/20 01:11 MCHC 32 % (32-34) 06/02/20 01:11 RDW 15.5 % (13.2-15.2) H 06/02/20 01:11 Plt Count 180 K/mm3 (140-440) 06/02/20 01:11 Lymph % (Auto) 42.4 % (13.4-35.0) H 06/02/20 01:11 [place] % (Auto) 4.3 % (0.0-7.3) 06/02/20 01:11 Eos % (Auto) 0.7 % (0.0-4.3) 06/02/20 01:11 Baso % (Auto) 0.7 % (0.0-1.8) 06/02/20 01:11 Lymph # (Auto) 2.2 K/mm3 (1.2-5.4) 06/02/20 01:11 [place] # (Auto) 0.2 K/mm3 (0.0-0.8) 06/02/20 01:11 Eos # (Auto) 0.0 K/mm3 (0.0-0.4) 06/02/20 01:11 Baso # (Auto) 0.0 K/mm3 (0.0-0.1) 06/02/20 01:11 Seg Neutrophils % 51.9 % (40.0-70.0) 06/02/20 01:11 Seg Neutrophils # 2.7 K/mm3 (1.8-7.7) 06/02/20 01:11 PT 15.4 Sec. (12.2-14.9) H 06/02/20 01:11 INR 1.22 (0.87-1.13) H 06/02/20 01:11 APTT 27.2 Sec. (24.2-36.6) 06/02/20 01:11 ABG pH 7.350 (7.320-7.450) 06/02/20 02:00 POC ABG pCO2 37.8 mmHg (32.0-48.0) 06/02/20 02:00 POC ABG pO2 252.0 mmHg (83-108) H 06/02/20 02:00 POC ABG HCO3 20.4 06/02/20 02:00 POC ABG Base Excess -4.6 06/02/20 02:00 ABG Hemoglobin 14.4 (12.0-17.5) 06/02/20 02:00 ABG Sodium 135.5 mmol/L (136.0-145.0) L 06/02/20 02:00 ABG Potassium 4.2 mmol/L (3.40-4.50) 06/02/20 02:00 ABG Chloride 106.0 mmol/L (98-107) 06/02/20 02:00 ABG Glucose 146 mg/dL (65-95) H 06/02/20 02:00 FiO2 100 06/02/20 02:00 Sodium 138 mmol/L (137-145) 06/02/20 01:11 Potassium 4.2 mmol/L (3.6-5.0) 06/02/20 01:11 Chloride 103.6 mmol/L (98-107) 06/02/20 01:11 Carbon Dioxide 21 mmol/L (22-30) L 06/02/20 01:11 Anion Gap 18 mmol/L 06/02/20 01:11 BUN 15 mg/dL (9-20) 06/02/20 01:11 Creatinine 1.7 mg/dL (0.8-1.3) H 06/02/20 01:11 Estimated GFR 52 ml/min 06/02/20 01:11 BUN/Creatinine Ratio 9 % 06/02/20 01:11 Glucose 135 mg/dL (75-100) H 06/02/20 01:11 Calcium 8.4 mg/dL (8.4-10.2) 06/02/20 01:11 Total Bilirubin 0.60 mg/dL (0.1-1.2) 06/02/20 01:11 AST 95 units/L (5-40) H 06/02/20 01:11 ALT 78 units/L (7-56) H 06/02/20 01:11 Alkaline Phosphatase 98 units/L (35-129) 06/02/20 01:11 Total Creatine Kinase 94 units/L (55-170) 06/02/20 06:19 CK-MB (CK-2) 2.5 ng/mL (0.0-4.0) 06/02/20 06:19 CK-MB (CK-2) Rel Index 2.6 (0-4) 06/02/20 06:19 Troponin T < 0.010 ng/mL (0.00-0.029) 06/02/20 06:19 Total Protein 6.2 g/dL (6.3-8.2) L 06/02/20 01:11 Albumin 3.8 g/dL (3.9-5) L 06/02/20 01:11 Albumin/Globulin Ratio 1.6 % 06/02/20 01:11 Arterial Blood Glucose 146 mg/dL (65-95) H 06/02/20 02:00 Arterial Blood Ionized Calcium 4.6 mg/dL (4.6-5.3) 06/02/20 02:00 Urine Color Yellow (Yellow) 06/02/20 02:56 Urine Turbidity Slightly-cloudy (Clear) 06/02/20 02:56 Urine pH 5.0 (5.0-7.0) 06/02/20 02:56 Ur Specific [place] 1.010 (1.003-1.030) 06/02/20 02:56 Urine Protein 100 mg/dl mg/dL (Negative) 06/02/20 02:56 Urine Glucose (UA) Neg mg/dL (Negative) 06/02/20 02:56 Urine Ketones Neg mg/dL (Negative) 06/02/20 02:56 Urine Blood Neg (Negative) 06/02/20 02:56 Urine Nitrite Neg (Negative) 06/02/20 02:56 Urine Bilirubin Neg (Negative) 06/02/20 02:56 Urine Urobilinogen < 2.0 mg/dL (<2.0) 06/02/20 02:56 Ur Leukocyte Esterase Neg (Negative) 06/02/20 02:56 Urine WBC (Auto) 5.0 /HPF (0.0-6.0) 06/02/20 02:56 Urine RBC (Auto) 1.0 /HPF (0.0-6.0) 06/02/20 02:56 U Epithel Cells (Auto) < 1.0 /HPF (0-13.0) 06/02/20 02:56 Urine Bacteria (Auto) 2+ /HPF (Negative) 06/02/20 02:56 Hyaline Casts 1 /LPF 06/02/20 02:56 Urine Mucus Few /HPF 06/02/20 02:56 Urine Yeast (Budding) Few /HPF 06/02/20 02:56 Urine Opiates Screen Presumptive negative 06/02/20 02:56 Urine Methadone Screen Presumptive negative 06/02/20 02:56 Ur Barbiturates Screen Presumptive negative 06/02/20 02:56 Ur Phencyclidine Scrn Presumptive negative 06/02/20 02:56 Ur Amphetamines Screen Presumptive positive 06/02/20 02:56 U Benzodiazepines Scrn Presumptive negative 06/02/20 02:56 Urine Cocaine Screen Presumptive negative 06/02/20 02:56 U Marijuana (THC) Screen Presumptive positive 06/02/20 02:56 Drugs of Abuse Note Disclamer 06/02/20 02:56 Raymond/IV: Voiding Method Indwelling Catheter Active Medications - Current Medications Current Medications: Generic Name Dose Route Start Last Admin Trade Name Freq PRN Reason Stop Dose Admin Acetaminophen 650 mg 06/02/20 04:02 Acetaminophen 325 Mg Tab PO Q4H PRN Fever >101 Aspirin 325 mg 06/02/20 10:00 Aspirin 325 Mg Tab PO QDAY [facility] Fentanyl 50 mcg 06/02/20 00:57 Fentanyl 100 Mcg/2 Ml Inj IV Q10MIN PRN ANALGESIA Furosemide 20 mg 06/02/20 08:19 Furosemide 20 Mg/2 Ml Inj IV 06/02/20 10:00 ONCE NR Heparin Sodium (Porcine) 5,000 unit 06/02/20 10:00 Heparin 5,000 Unit/1 Ml Vial SUB-Q Q12HR [facility] Hydrophilic Ointment 1 applic 06/02/20 00:57 Lip Therapy Vaseline TP Q2HR PRN Dry Lips Multi-Ingred Cream/Lotion/Oil/Oint 1 applic 06/02/20 00:57 Mineral Oil/Petrolatum, White Ophth Oint 3.5 Gm OU Q4HR PRN Dry Eye(s) Nitroglycerin 0.5 inch 06/02/20 06:00 Nitroglycerin 2% Oint 1 Gm TP QIDNTG [facility] Protocol Ondansetron HCl 4 mg 06/02/20 04:06 Ondansetron 4 Mg/2 Ml Inj IV Q8H PRN Nausea And Vomiting
[2020-06-02] MEDS ORDERED: carvediloL 6.25 MG TAB PO SCH ×2 (10:00)
[2020-06-02] MEDS: ASPIRIN 325 MG TAB PO SCH (10:05)
[2020-06-02] MEDS: HEPARIN 5,000 UNIT/1 ML VIAL SUB-Q SCH ×2 (10:05→22:39)
[2020-06-02] MEDS: NITROGLYCERIN 2% OINT 1 GM TP SCH ×4 (10:05→17:43)
[2020-06-02] MEDS: SPIRONOLACTONE 25 MG TAB PO SCH (10:57)
[2020-06-02] MEDS: carvediloL 12.5 MG TAB PO SCH ×2 (10:59→22:38)
[2020-06-02 13:57] LABS: Creatine Kinase MB 2.4 ng/mL (0.0-4.0)
[2020-06-02] MEDS: FUROSEMIDE 40 MG/4 ML INJ IV SCH (17:43)
--- NOTE | 2020-06-02 18:36 | Event Note ---
Date: 06/02/20 I called patient's sister More Saba at [phone] and discussed about patient's condition, tests and reports, consultants recommendation Informed that patient was extubated, and is transferred to telemetry floor, and possible treatment and discharge plan. I answered all her questions. She has some concerns that patient's medication dose was increased by his physician, and if that was the cause of His symptoms when he came to the hospital. However she does not know the name of the medication nor the name of the prescriber She would find out and will inform the patient's nurse. I informed the patient's nurse Alex.
--- NOTE | 2020-06-02 21:15 | Consultation ---
History of Present Illness Consult date: 06/02/20 Requesting physician: YANNA ELMORE Consult reason: shortness of breath History of present illness: Pt is followed by Dr. Audrey Pete with [facility] 49 M with a history of DCM EF 15-20%, acute on chronic HFrEF, hypertension, chr onic kidney disease, tobacco use, and polysubstance abuse presents with sharp chest pain and SOB. EMS brought in patient to ED with noted hypoxic and mildly hypotensive with acute respiratory failure. He was subsequently intubated. Past History Past Medical History: heart failure, hypertension, renal failure, other (POLYSUBSTANCE ABUSE) Past Surgical History: Other (PELVIC FRACTURE) Social history: smoking, other (POLYSUBSTANCE ABUSE) Medications and Allergies Allergies Allergy/AdvReac Type Severity Reaction Status Date / Time No Known Allergies Allergy Verified 05/09/20 07:26 Home Medications Medication Instructions Recorded Confirmed Last Taken Type Aspirin EC [Ecotrin] 325 mg PO QDAY tablet 06/26/16 06/02/20 Unknown Rx Furosemide [Lasix TAB] 40 mg PO QDAY #30 tablet 05/04/20 06/02/20 Unknown Rx Spironolactone [Aldactone] 25 mg PO QDAY 06/02/20 06/02/20 Unknown History carvediloL [Coreg] 12.5 mg PO BID 06/02/20 06/02/20 Unknown History Active Meds: Active Medications Acetaminophen (Acetaminophen 325 Mg Tab) 650 mg PO Q4H PRN PRN Reason: Fever >101 Aspirin (Aspirin 325 Mg Tab) 325 mg PO QDAY [facility] Last Admin: 06/02/20 10:05 Dose: 325 mg Documented by: Carvedilol (Carvedilol 12.5 Mg Tab) 12.5 mg PO BID [facility] Last Admin: 06/02/20 10:59 Dose: 12.5 mg Documented by: Fentanyl (Fentanyl 100 Mcg/2 Ml Inj) 50 mcg IV Q10MIN PRN PRN Reason: ANALGESIA Furosemide (Furosemide 40 Mg/4 Ml Inj) 40 mg IV 0600,1800 [facility] Last Admin: 06/02/20 17:43 Dose: 40 mg Documented by: Heparin Sodium (Porcine) (Heparin 5,000 Unit/1 Ml Vial) 5,000 unit SUB-Q Q12HR [facility] Last Admin: 06/02/20 10:05 Dose: 5,000 unit Documented by: Hydrophilic Ointment (Lip Therapy Vaseline) 1 applic TP Q2HR PRN PRN Reason: Dry Lips Multi-Ingred Cream/Lotion/Oil/Oint (Mineral Oil/Petrolatum, White Ophth Oint 3.5 Gm) 1 applic OU Q4HR PRN PRN Reason: Dry Eye(s) Nitroglycerin (Nitroglycerin 2% Oint 1 Gm) 0.5 inch TP QIDNTG [facility]; Protocol Last Admin: 06/02/20 17:43 Dose: 0.5 inch Documented by: Ondansetron HCl (Ondansetron 4 Mg/2 Ml Inj) 4 mg IV Q8H PRN PRN Reason: Nausea And Vomiting Spironolactone (Spironolactone 25 Mg Tab) 25 mg PO QDAY [facility] Last Admin: 06/02/20 10:57 Dose: 25 mg Documented by: Review of Systems Constitutional: no weight loss, no weight gain, no fever, no chills Ears, nose, mouth and throat: deferred Cardiovascular: no chest pain, no orthopnea, no palpitations, no edema, no syncope Respiratory: no shortness of breath, no dyspnea on exertion Gastrointestinal: no abdominal pain, no nausea, no vomiting Genitourinary Male: no dysuria, no flank pain Musculoskeletal: no neck stiffness, no neck pain Integumentary: no rash, no pruritis Neurological: no head injury Allergic/Immunologic: no urticaria, no allergic rhinitis Physical Examination Vital Signs Pulse Resp BP Pulse Ox 84 22 109/64 77 L 06/02/20 00:51 06/02/20 00:51 06/02/20 00:51 06/02/20 00:51 General appearance: no acute distress HEENT: Positive: PERRL, EOMI Neck: Positive: neck supple, trachea midline Cardiac: Positive: Reg Rate and Rhythm Lungs: Positive: Normal Exam, clear to auscultation Neuro: Positive: Grossly Intact Abdomen: Positive: Soft, Active Bowel Sounds Male genitourinary: Positive: deferred Skin: Positive: Clear. Negative: Rash Extremities: Present: warm. Absent: edema Results 06/02/20 01:11 06/02/20 01:11 Cardiac Enzymes 06/02/20 06/02/20 06/02/20 Range/Units 01:11 04:07 06:19 AST 95 H (5-40) units/L CK-MB (CK-2) 2.5 2.5 (0.0-4.0) ng/mL 06/02/20 Range/Units 13:18 AST (5-40) units/L CK-MB (CK-2) 2.4 (0.0-4.0) ng/mL Coagulation 06/02/20 Range/Units 01:11 PT 15.4 H (12.2-14.9) Sec. INR 1.22 H (0.87-1.13) APTT 27.2 (24.2-36.6) Sec. CBC 06/02/20 Range/Units 01:11 WBC 5.3 (4.5-11.0) K/mm3 RBC 4.93 (3.65-5.03) M/mm3 Hgb 13.7 (11.8-15.2) gm/dl Hct 42.4 (35.5-45.6) % Plt Count 180 (140-440) K/mm3 Lymph # (Auto) 2.2 (1.2-5.4) K/mm3 Logan # (Auto) 0.2 (0.0-0.8) K/mm3 Eos # (Auto) 0.0 (0.0-0.4) K/mm3 Baso # (Auto) 0.0 (0.0-0.1) K/mm3 Comprehensive Metabolic Panel 06/02/20 Range/Units 01:11 Sodium 138 (137-145) mmol/L Potassium 4.2 (3.6-5.0) mmol/L Chloride 103.6 (98-107) mmol/L Carbon Dioxide 21 L (22-30) mmol/L BUN 15 (9-20) mg/dL Creatinine 1.7 H (0.8-1.3) mg/dL Glucose 135 H (75-100) mg/dL Calcium 8.4 (8.4-10.2) mg/dL AST 95 H (5-40) units/L ALT 78 H (7-56) units/L Alkaline Phosphatase 98 (35-129) units/L Total Protein 6.2 L (6.3-8.2) g/dL Albumin 3.8 L (3.9-5) g/dL EKG interpretations - EKG Sinus rhythms and dysrhythmias: sinus tachycardia Assessment and Plan Acute hypoxic respiratory failure Acute on chronic HFrEF Severe nonischemic cardiomyopathy; EF 15 to 20% Atypical chest pain Acute on chronic kidney disease stage III H/O Methamphetamine/marijuana abuse Mild elevated liver enzymes Echocardiogram - Date: 04/28/2020 Global LV systolic function is severly decreased.The estimated EF is 15- 20%.The LV size is mild to moderately dilated.There is evidence of mild pulmonary hypertension.There is mild MR.There is no pericardial effusion. Cardiac catheterization, left heart - Date: 05/01/2020 1. No angiographic evidence of significant epicardial coronary disese in the right dominat system.2. Severe globally dilated and hypokinetic left ventricle with estimated EF of 15-20%.3. No evisence of aortic stenosis.4. Mildly elevated LVEDP strict I/O continue IV diuresis continue coreg 12.5mg BID Aldactone 25mg QDAY
[2020-06-03] MEDS: NITROGLYCERIN 2% OINT 1 GM TP SCH ×5 (06:54→18:19)
[2020-06-03] MEDS: FUROSEMIDE 40 MG/4 ML INJ IV SCH ×2 (06:54→18:05)
[2020-06-03 07:09] LABS: Calcium 8.4 mg/dL (8.4-10.2)
--- NOTE | 2020-06-03 10:54 | Progress Note ---
Assessment and Plan Febrile overnight 100.4 Hypomag Acute hypoxic respiratory failure requiring intubation Acute on chronic HFrEF Dilated cardiomyopathy; EF 15 to 20% Atypical chest pain Acute on chronic kidney disease stage III H/O Methamphetamine/marijuana abuse Mild elevated liver enzymes Echocardiogram - Date: 04/28/2020 Global LV systolic function is severly decreased.The estimated EF is 15-20% .The LV size is mild to moderately dilated.There is evidence of mild pulmonary hypertension.There is mild MR.There is no pericardial effusion. Cardiac catheterization, left heart - Date: 05/01/2020 1. No angiographic evidence of significant epicardial coronary disese in the right dominat system.2. Severe globally dilated and hypokinetic left ventricle with estimated EF of 15-20%.3. No evisence of aortic stenosis.4. Mildly elevated LVEDP Neg 1130cc continue strict I/O replete magnesium continue IV diuresis continue coreg 12.5mg BID continue Aldactone 25mg QDAY Subjective Date of service: 06/03/20 Principal diagnosis: Acute on chronic HFrEF Interval history: Patient is sitting up in bed without any significant complaints. He reports that his breathing is better although he still has a cough and is showing some mild hemoptysis likely from a traumatic intubation. Of note he was febrile overnight to 100.4 Objective Vital Signs Temp Pulse Pulse Resp BP Pulse Ox 06/03/20 09:07 99.4 F 104 H 18 113/73 99 06/03/20 05:52 100.4 F H 82 20 102/65 95 06/02/20 23:20 98.6 F 100 H 20 93/63 97 06/02/20 20:26 84 06/02/20 20:05 98.7 F 102 H 20 114/64 96 06/02/20 18:30 99.1 F 06/02/20 18:18 84 115/79 93 06/02/20 17:50 98 H 19 122/79 99 06/02/20 17:45 100 H 14 122/79 99 06/02/20 17:43 101 H 109/78 06/02/20 17:40 101 H 22 109/78 97 06/02/20 17:36 103 H 24 109/78 97 06/02/20 17:30 100 H 23 109/78 99 06/02/20 17:26 101 H 23 107/78 99 06/02/20 17:20 99 H 23 107/78 99 06/02/20 17:15 98 H 22 107/78 06/02/20 17:10 98 H 22 106/76 100 06/02/20 17:06 99 H 23 106/76 100 06/02/20 17:00 94 H 28 H 106/76 99 06/02/20 16:56 98 H 20 110/77 98 06/02/20 16:50 98 H 21 110/77 98 06/02/20 16:45 98 H 22 110/77 100 06/02/20 16:40 96 H 17 104/77 99 06/02/20 16:36 98 H 20 104/77 98 06/02/20 16:30 98 H 21 104/77 96 06/02/20 16:26 97 H 25 H 108/76 100 06/02/20 16:20 100 H 25 H 108/76 99 06/02/20 16:15 98 H 24 108/76 100 06/02/20 16:10 98 H 21 111/76 100 06/02/20 16:06 98 H 20 111/76 99 06/02/20 16:00 99.9 F H 97 H 100 H 22 108/76 98 06/02/20 15:56 98 H 21 111/76 100 06/02/20 15:50 99 H 20 111/76 98 06/02/20 15:45 98 H 21 111/76 100 06/02/20 15:40 99 H 22 101/72 99 06/02/20 15:36 98 H 19 101/72 100 06/02/20 15:30 100 H 20 101/72 98 06/02/20 15:26 98 H 17 106/78 99 06/02/20 15:20 97 H 19 106/78 100 06/02/20 15:15 98 H 20 106/78 100 06/02/20 15:10 98 H 25 H 105/77 100 06/02/20 15:06 98 H 27 H 105/77 100 06/02/20 15:00 96 H 24 105/77 100 06/02/20 14:56 98 H 21 107/76 100 06/02/20 14:50 98 H 24 107/76 99 06/02/20 14:45 98 H 20 107/76 96 06/02/20 14:40 98 H 22 112/83 99 06/02/20 14:36 96 H 17 112/83 98 06/02/20 14:30 96 H 21 112/83 98 06/02/20 14:26 96 H 22 112/83 100 06/02/20 14:20 99 H 24 112/83 100 06/02/20 14:15 96 H 22 112/83 06/02/20 14:10 97 H 20 108/82 98 06/02/20 14:06 89 17 108/82 98 06/02/20 14:00 98 H 21 108/82 99 06/02/20 13:56 98 H 18 110/81 98 06/02/20 13:50 99 H 19 110/81 99 06/02/20 13:45 99 H 19 110/81 97 06/02/20 13:40 98 H 13 114/79 100 06/02/20 13:36 98 H 21 114/79 100 06/02/20 13:30 98 H 18 114/79 96 06/02/20 13:26 99 H 16 114/76 99 06/02/20 13:20 99 H 19 114/76 100 06/02/20 13:15 97 H 14 114/76 100 06/02/20 13:10 97 H 15 110/75 99 06/02/20 13:06 96 H 18 110/75 100 06/02/20 13:00 97 H 17 110/75 06/02/20 12:56 96 H 15 106/78 98 06/02/20 12:50 97 H 15 106/78 99 06/02/20 12:45 98 H 17 106/78 97 06/02/20 12:40 98 H 19 113/78 97 06/02/20 12:36 98 H 22 113/78 98 06/02/20 12:30 98 H 22 113/78 96 06/02/20 12:26 97 H 23 110/85 97 06/02/20 12:20 96 H 21 110/85 98 06/02/20 12:15 97 H 22 110/85 94 06/02/20 12:10 95 H 20 113/83 99 06/02/20 12:06 96 H 19 113/83 99 06/02/20 12:00 97.6 F 95 H 98 H 20 113/83 100 06/02/20 11:56 98 H 21 110/83 98 06/02/20 11:50 96 H 15 110/83 98 06/02/20 11:45 95 H 23 110/83 98 06/02/20 11:40 95 H 23 114/87 99 06/02/20 11:36 94 H 24 114/87 96 06/02/20 11:30 94 H 19 114/87 96 06/02/20 11:26 95 H 19 112/89 97 06/02/20 11:20 95 H 24 112/89 98 06/02/20 11:15 94 H 24 112/89 97 06/02/20 11:10 96 H 18 109/81 99 06/02/20 11:08 95 H 06/02/20 11:06 99 H 18 109/81 99 06/02/20 11:00 93 H 19 109/81 95 06/02/20 10:59 94 H 113/86 06/02/20 10:57 94 H 113/86 06/02/20 10:56 95 H 14 113/86 97 - Physical Examination HEENT: Positive: PERRL, EOMI Neck: Positive: neck supple, trachea midline Cardiac: Positive: Regular Rhythm, Tachycardia Lungs: Positive: Rales Neuro: Positive: Grossly Intact Abdomen: Positive: Soft, Active Bowel Sounds Skin: Positive: Clear. Negative: Rash Extremities: Present: lower extr. pulses, warm. Absent: edema - Labs and Meds Cardiac Enzymes 06/02/20 Range/Units 13:18 CK-MB (CK-2) 2.4 (0.0-4.0) ng/mL Comprehensive Metabolic Panel 06/03/20 Range/Units 04:33 Sodium 138 (137-145) mmol/L Potassium 4.4 (3.6-5.0) mmol/L Chloride 101.9 (98-107) mmol/L Carbon Dioxide 31 H D (22-30) mmol/L BUN 15 (9-20) mg/dL Creatinine 1.5 H (0.8-1.3) mg/dL Glucose 96 (75-100) mg/dL Calcium 8.4 (8.4-10.2) mg/dL - EKG Sinus rhythms and dysrhythmias: sinus tachycardia
[2020-06-03] MEDS ORDERED: MAGNESIUM SULFATE 2 GM/50 ML BAG IV ONE (10:55)
[2020-06-03] MEDS: ASPIRIN 325 MG TAB PO SCH (11:05)
[2020-06-03] MEDS: carvediloL 12.5 MG TAB PO SCH ×2 (11:05→21:59)
[2020-06-03] MEDS: SPIRONOLACTONE 25 MG TAB PO SCH (11:06)
[2020-06-03] MEDS: HEPARIN 5,000 UNIT/1 ML VIAL SUB-Q SCH ×2 (11:06→22:00)
--- NOTE | 2020-06-03 11:24 | Progress Note ---
Assessment and Plan Assessment and plan: --Mild hemoptysis; Current Visit: Yes Status: Acute . Plan to address problem: Initially bloodstained sputum, later few drops of benita blood Tracheal injury Probably secondary to wire intubation and extubation We will closely monitor, if no improvement will get a chest x-ray/VQ scan Will discuss with senior fire protection engineer if needed --Hypomagnesemia; Current Visit: Yes Status: Acute . Plan to address problem: Replenish per protocol and monitor levels --Acute hypoxic respiratory failure ; Current Visit: Yes Status: Acute Plan to address problem: requiring intubation and mechanical ventilation Secondary to acute on chronic systolic congestive heart failure Patient was evaluated by pulmonary critical Extubated this morning, on 2 L nasal cannula oxygen Continues to have mild shortness of breath --acute on chronic systolic congestive heart failure Current Visit: Yes Status: Acute Plan to address problem: Antifailure medication diuretics beta-blockers, no FAHAD inhibitors in view of CKD Input output monitoring, fluid restriction Cardiology consulted --Persistent tachycardia; Current Visit: Yes Status: Acute Plan to address problem: Due to underlying illness Closely monitor continue beta-blockers --Severe nonischemic cardiomyopathy; EF 15 to 20% Current Visit: Yes Status: Acute Plan to address problem: Patient is on [employer] Outpatient follow-up with EP protective services social worker upon discharge --Atypical chest pain Current Visit: Yes Status: Acute Plan to address problem: 05/01/2020 s/p left heart catheterization, nonobstructive coronaries . severe cardiomyopathy with EF of 15 to 20% --Acute on chronic kidney disease stage III; Current Visit: Yes Status: Acute Plan to address problem: Due to vasomotor nephropathy Mild improvement in creatinine levels avoid nephrotoxins --h/o Methamphetamine/marijuana abuse Current Visit: Yes Status: Acute Plan to address problem: Will area counselor the patient when patient is stable --Mild elevated liver enzymes Current Visit: Yes Status: Acute Plan to address problem: GI has evaluated the patient during previous admission 3 4 weeks ago Probably secondary to alcohol use, liver congestion, Closely monitor --DVT prophylaxis Current Visit: Yes Status: Acute . Plan to address problem: Heparin We will closely monitor the patient and adjust the management as needed 06/03; patient has mild hemoptysis this morning, probably secondary to tracheal injury due to intubation and extubation Denies any chest pain or shortness of breath, closely monitor, if no improvement we will check with senior fire protection engineer and get a chest x-ray/VQ scan History Interval history: I have seen and examined the patient in the morning at the bedside Patient's chart and medications reviewed Patient complains of some blood-tinged sputum on coughing Denies shortness of breath or chest pain Patient was admitted with altered level of consciousness requiring intubation and was extubated yesterday Hospitalist Physical - Constitutional Vitals: Temp Pulse Resp BP Pulse Ox 99.4 F 102 H 18 113/73 99 06/03/20 09:07 06/03/20 11:06 06/03/20 09:07 06/03/20 09:07 06/03/20 09:07 General appearance: Present: mild distress, well-nourished - EENT Eyes: Present: PERRL, EOM intact - Neck Neck: Present: supple, normal ROM - Respiratory Respiratory effort: normal Respiratory: bilateral: diminished, rhonchi, negative: rales, wheezing - Cardiovascular Rhythm: regular Heart Sounds: Present: S1 & S2 (Tachycardia) - Extremities Extremities: no ischemia, pulses intact - Abdominal General gastrointestinal: soft, non-tender, non-distended, normal bowel sounds - Integumentary Integumentary: Present: clear, warm - Psychiatric Psychiatric: appropriate mood/affect, cooperative - Neurologic Neurologic: moves all extremities HEART Score - HEART Score EKG: Non-specific Age: 45-65 Risk factors: > 3 risk factors or hx of atherosclerotic disease (PATIENT BEING WORKED UP) Troponin: Troponin T < 0.010 ng/mL (0.00-0.029) 06/02/20 13:18 Troponin: < normal limit - Critical Actions Critical Actions: 0-3 pts:0.9-1.7%risk of adverse cardiac event.Candidate for discharge Results - Labs CBC & Chem 7: 06/02/20 01:11 06/03/20 04:33 Labs: Laboratory Last Values WBC 5.3 K/mm3 (4.5-11.0) 06/02/20 01:11 RBC 4.93 M/mm3 (3.65-5.03) 06/02/20 01:11 Hgb 13.7 gm/dl (11.8-15.2) 06/02/20 01:11 Hct 42.4 % (35.5-45.6) 06/02/20 01:11 MCV 86 fl (84-94) 06/02/20 01:11 MCH 28 pg (28-32) 06/02/20 01:11 MCHC 32 % (32-34) 06/02/20 01:11 RDW 15.5 % (13.2-15.2) H 06/02/20 01:11 Plt Count 180 K/mm3 (140-440) 06/02/20 01:11 Lymph % (Auto) 42.4 % (13.4-35.0) H 06/02/20 01:11 Oliver % (Auto) 4.3 % (0.0-7.3) 06/02/20 01:11 Eos % (Auto) 0.7 % (0.0-4.3) 06/02/20 01:11 Baso % (Auto) 0.7 % (0.0-1.8) 06/02/20 01:11 Lymph # (Auto) 2.2 K/mm3 (1.2-5.4) 06/02/20 01:11 Oliver # (Auto) 0.2 K/mm3 (0.0-0.8) 06/02/20 01:11 Eos # (Auto) 0.0 K/mm3 (0.0-0.4) 06/02/20 01:11 Baso # (Auto) 0.0 K/mm3 (0.0-0.1) 06/02/20 01:11 Seg Neutrophils % 51.9 % (40.0-70.0) 06/02/20 01:11 Seg Neutrophils # 2.7 K/mm3 (1.8-7.7) 06/02/20 01:11 PT 15.4 Sec. (12.2-14.9) H 06/02/20 01:11 INR 1.22 (0.87-1.13) H 06/02/20 01:11 APTT 27.2 Sec. (24.2-36.6) 06/02/20 01:11 ABG pH 7.350 (7.320-7.450) 06/02/20 02:00 POC ABG pCO2 37.8 mmHg (32.0-48.0) 06/02/20 02:00 POC ABG pO2 252.0 mmHg (83-108) H 06/02/20 02:00 POC ABG HCO3 20.4 06/02/20 02:00 POC ABG Base Excess -4.6 06/02/20 02:00 ABG Hemoglobin 14.4 (12.0-17.5) 06/02/20 02:00 ABG Sodium 135.5 mmol/L (136.0-145.0) L 06/02/20 02:00 ABG Potassium 4.2 mmol/L (3.40-4.50) 06/02/20 02:00 ABG Chloride 106.0 mmol/L (98-107) 06/02/20 02:00 ABG Glucose 146 mg/dL (65-95) H 06/02/20 02:00 FiO2 100 06/02/20 02:00 Sodium 138 mmol/L (137-145) 06/03/20 04:33 Potassium 4.4 mmol/L (3.6-5.0) 06/03/20 04:33 Chloride 101.9 mmol/L (98-107) 06/03/20 04:33 Carbon Dioxide 31 mmol/L (22-30) H D 06/03/20 04:33 Anion Gap 10 mmol/L 06/03/20 04:33 BUN 15 mg/dL (9-20) 06/03/20 04:33 Creatinine 1.5 mg/dL (0.8-1.3) H 06/03/20 04:33 Estimated GFR 60 ml/min 06/03/20 04:33 BUN/Creatinine Ratio 10 % 06/03/20 04:33 Glucose 96 mg/dL (75-100) 06/03/20 04:33 Calcium 8.4 mg/dL (8.4-10.2) 06/03/20 04:33 Phosphorus 3.00 mg/dL (2.5-4.5) 06/03/20 04:33 Magnesium 1.50 mg/dL (1.7-2.3) L 06/03/20 04:33 Total Bilirubin 0.60 mg/dL (0.1-1.2) 06/02/20 01:11 AST 95 units/L (5-40) H 06/02/20 01:11 ALT 78 units/L (7-56) H 06/02/20 01:11 Alkaline Phosphatase 98 units/L (35-129) 06/02/20 01:11 Total Creatine Kinase 69 units/L (55-170) 06/02/20 13:18 CK-MB (CK-2) 2.4 ng/mL (0.0-4.0) 06/02/20 13:18 CK-MB (CK-2) Rel Index 3.4 (0-4) 06/02/20 13:18 Troponin T < 0.010 ng/mL (0.00-0.029) 06/02/20 13:18 Total Protein 6.2 g/dL (6.3-8.2) L 06/02/20 01:11 Albumin 3.8 g/dL (3.9-5) L 06/02/20 01:11 Albumin/Globulin Ratio 1.6 % 06/02/20 01:11 Arterial Blood Glucose 146 mg/dL (65-95) H 06/02/20 02:00 Arterial Blood Ionized Calcium 4.6 mg/dL (4.6-5.3) 06/02/20 02:00 Urine Color Yellow (Yellow) 06/02/20 02:56 Urine Turbidity Slightly-cloudy (Clear) 06/02/20 02:56 Urine pH 5.0 (5.0-7.0) 06/02/20 02:56 Ur Specific [place] 1.010 (1.003-1.030) 06/02/20 02:56 Urine Protein 100 mg/dl mg/dL (Negative) 06/02/20 02:56 Urine Glucose (UA) Neg mg/dL (Negative) 06/02/20 02:56 Urine Ketones Neg mg/dL (Negative) 06/02/20 02:56 Urine Blood Neg (Negative) 06/02/20 02:56 Urine Nitrite Neg (Negative) 06/02/20 02:56 Urine Bilirubin Neg (Negative) 06/02/20 02:56 Urine Urobilinogen < 2.0 mg/dL (<2.0) 06/02/20 02:56 Ur Leukocyte Esterase Neg (Negative) 06/02/20 02:56 Urine WBC (Auto) 5.0 /HPF (0.0-6.0) 06/02/20 02:56 Urine RBC (Auto) 1.0 /HPF (0.0-6.0) 06/02/20 02:56 U Epithel Cells (Auto) < 1.0 /HPF (0-13.0) 06/02/20 02:56 Urine Bacteria (Auto) 2+ /HPF (Negative) 06/02/20 02:56 Hyaline Casts 1 /LPF 06/02/20 02:56 Urine Mucus Few /HPF 06/02/20 02:56 Urine Yeast (Budding) Few /HPF 06/02/20 02:56 Urine Opiates Screen Presumptive negative 06/02/20 02:56 Urine Methadone Screen Presumptive negative 06/02/20 02:56 Ur Barbiturates Screen Presumptive negative 06/02/20 02:56 Ur Phencyclidine Scrn Presumptive negative 06/02/20 02:56 Ur Amphetamines Screen Presumptive positive 06/02/20 02:56 U Benzodiazepines Scrn Presumptive negative 06/02/20 02:56 Urine Cocaine Screen Presumptive negative 06/02/20 02:56 U Marijuana (THC) Screen Presumptive positive 06/02/20 02:56 Drugs of Abuse Note Disclamer 06/02/20 02:56 Microbiology: Microbiology 06/02/20 08:21 Tracheal Aspirate Sputum Culture - Preliminary Raymond/IV: Voiding Method Indwelling Catheter Active Medications - Current Medications Current Medications: Generic Name Dose Route Start Last Admin Trade Name Freq PRN Reason Stop Dose Admin Acetaminophen 650 mg 06/02/20 04:02 Acetaminophen 325 Mg Tab PO Q4H PRN Fever >101 Aspirin 325 mg 06/02/20 10:00 06/03/20 11:05 Aspirin 325 Mg Tab PO 325 mg QDAY ELMER Administration Carvedilol 12.5 mg 06/02/20 10:30 06/03/20 11:05 Carvedilol 12.5 Mg Tab PO 12.5 mg BID ELMER Administration Fentanyl 50 mcg 06/02/20 00:57 Fentanyl 100 Mcg/2 Ml Inj IV Q10MIN PRN ANALGESIA Furosemide 40 mg 06/02/20 18:00 06/03/20 06:54 Furosemide 40 Mg/4 Ml Inj IV 40 mg 0600,1800 ELMER Administration Heparin Sodium (Porcine) 5,000 unit 06/02/20 10:00 06/03/20 11:06 Heparin 5,000 Unit/1 Ml Vial SUB-Q 5,000 unit Q12HR ELMER Administration Hydrophilic Ointment 1 applic 06/02/20 00:57 Lip Therapy Vaseline TP Q2HR PRN Dry Lips Magnesium Sulfate 2 gm in 50 mls @ 100 mls/hr 06/03/20 10:55 Magnesium Sulfate 2gm/50ml IV 06/03/20 11:24 ONCE ONE Multi-Ingred Cream/Lotion/Oil/Oint 1 applic 06/02/20 00:57 Mineral Oil/Petrolatum, White Ophth Oint 3.5 Gm OU Q4HR PRN Dry Eye(s) Nitroglycerin 0.5 inch 06/02/20 06:00 06/03/20 11:04 Nitroglycerin 2% Oint 1 Gm TP 0.5 inch QIDNTG [facility] Administration Protocol Ondansetron HCl 4 mg 06/02/20 04:06 Ondansetron 4 Mg/2 Ml Inj IV Q8H PRN Nausea And Vomiting Spironolactone 25 mg 06/02/20 10:30 06/03/20 11:06 Spironolactone 25 Mg Tab PO 25 mg QDAY ELMER Administration
--- NOTE | 2020-06-03 17:35 | Event Note ---
Date: 06/03/20 Nurse reports that patient spiked fever of 101.3 F this evening Continues to have small amounts of bright red hemoptysis Patient's blood pressures reasonable, tachycardia We will check chest x-ray 2 view stat Check VQ scan to rule out PE I discussed with land surveying manager Dr. Mehta And will start empiric antibiotics with Rocephin and Zithromax And check blood ,urine and sputum cultures Plan of care reviewed with the patient's nurse and the patient
--- NOTE | 2020-06-03 17:46 | XRay Report ---
CHEST 2 VIEWS, 06/03/2020 5:32 PM INDICATION: Hemoptysis COMPARISON: Chest radiograph, 06/02/2020 FINDINGS: Support devices: None. Heart: There is stable enlargement of the cardiac silhouette. Lungs/pleura: There has been interval development of patchy opacity at the right lateral lung base. T he left lung appears grossly clear. Additional findings: No significant acute abnormality. IMPRESSION: 1. Interval development of patchy opacity at the right lung base concerning for developing pneumonia. 2. Stable enlargement of the cardiac silhouette. Signer Name: Becki Conti MD Signed: 06/03/2020 5:42 PM Workstation Name: [id number]
[2020-06-03] MEDS ORDERED: cefTRIAXone/NS 2 GM/100 ML 2 GM/100 ML BAG IV SCH ×2 (18:00→20:00)
[2020-06-03] MEDS ORDERED: AZITHROMYCIN/NS 500 MG/250 ML 500 MG/250 ML BAG IV SCH ×2 (18:00→20:00)
[2020-06-03] MEDS ORDERED: CEFEPIME/NS 2 GM/100 ML 2 GM/100 ML BAG IV SCH (18:00)
--- NOTE | 2020-06-03 18:15 | Event Note ---
Date: 06/03/20 Stat chest x-ray 2 views; patchy opacity right lung base[new finding] possible pneumonia --Sepsis secondary to hospital-acquired pneumonia: vs ventilator associated pneumonia; Patient was intubated yesterday and was extubated within 12 hours in ICU later transferred to the floor Patient has sepsis criteria; fever, tachycardia, pneumonia on chest x-ray. Check blood cultures sputum cultures, will manage with cefepime, consult ID [informed Dr. Perez for a.m. consult] Closely monitor and adjust the management as needed. We will check ledezma PCR, place isolation droplet and contact. We will transfer to [facility] as needed Total critical care time today 60 minutes
[2020-06-03] MEDS: CEFEPIME/NS 2 GM/100 ML 2 GM/100 ML BAG IV SCH (18:19)
[2020-06-03 18:39] LABS: INR 1.37 (0.87-1.13)
[2020-06-03 19:06] LABS: Basophils % (Auto) 0.4 % (0.0-1.8); Hematocrit 39.9 % (35.5-45.6); Hemoglobin 13.4 gm/dl (11.8-15.2); Lymphocytes # (Auto) 0.9 K/mm3 (1.2-5.4); Lymphocytes % (Auto) 8.3 % (13.4-35.0); Mean Corpuscular HGB Conc 34 % (32-34); Mean Corpuscular Volume 83 fl (84-94); Monocytes # (Auto) 0.8 K/mm3 (0.0-0.8); Monocytes % (Auto) 7.5 % (0.0-7.3); Platelet Count 156 K/mm3 (140-440); Red Blood Count 4.79 M/mm3 (3.65-5.03); Red Cell Distribution Width 14.6 % (13.2-15.2)
[2020-06-04] MEDS: CEFEPIME/NS 2 GM/100 ML 2 GM/100 ML BAG IV SCH ×3 (02:00→21:35)
[2020-06-04 05:49] LABS: Basophils % (Auto) 0.3 % (0.0-1.8); Hematocrit 40.5 % (35.5-45.6); Hemoglobin 13.3 gm/dl (11.8-15.2); Lymphocytes # (Auto) 1.4 K/mm3 (1.2-5.4); Lymphocytes % (Auto) 11.4 % (13.4-35.0); Mean Corpuscular HGB Conc 33 % (32-34); Mean Corpuscular Volume 84 fl (84-94); Monocytes # (Auto) 1.3 K/mm3 (0.0-0.8); Monocytes % (Auto) 10.6 % (0.0-7.3); Platelet Count 153 K/mm3 (140-440); Red Blood Count 4.85 M/mm3 (3.65-5.03); Red Cell Distribution Width 14.5 % (13.2-15.2)
[2020-06-04 06:03] LABS: BUN/Creatinine Ratio 9; Blood Urea Nitrogen 12 mg/dL (9-20); Calcium 8.4 mg/dL (8.4-10.2); Hemolysis Index 1
[2020-06-04] MEDS: FUROSEMIDE 40 MG/4 ML INJ IV SCH ×2 (06:27→17:16)
[2020-06-04] MEDS: NITROGLYCERIN 2% OINT 1 GM TP SCH ×4 (06:30→17:18)
--- NOTE | 2020-06-04 08:03 | Nuclear Medicine Report ---
NUCLEAR MEDICINE PERFUSION SCAN INDICATION: Hemoptysis CORRELATION: Chest x-ray performed 06/03/2020 at 0532 hours RADIOPHARMACEUTICAL: Perfusion: 5.2 mCi Tc-99m MAA given IV FINDINGS: Perfusion images show bilateral segmental perfusion defects in both lungs concerning for bilateral pu lmonary emboli. Perfusion defects are identified in both upper lobes and right lower lobe. No corresp onding opacities are identified in chest x-ray. IMPRESSION: Intermediate to high probability perfusion scan for pulmonary embolism. CRITICAL RESULT: Time of Discovery (EMAIL MARKETING EXECUTIVE/CDT): 0655 hours Time of Communication (EMAIL MARKETING EXECUTIVE/CDT): 0657 hours Licensed Practitioner Receiving Report: AGUSTÍN Burch Read-Back Performed: Yes. Signer Name: Campos Moran Jr, MD Signed: 06/04/2020 7:59 AM Workstation Name: [id number]
--- NOTE | 2020-06-04 08:37 | Progress Note ---
Assessment and Plan Assessment and plan: --Hospital-acquired pneumonia: Current Visit: Yes Status: Acute . Plan to address problem: Versus ventilator associated pneumonia. Continue cefepime, follow cultures Oxygen support, ID consulted. --Elevated D-dimers: Current Visit: Yes Status: Acute . Plan to address problem: VQ scan intermediate probability for PE, 1 dose of therapeutic dose of Lovenox Now that renal function is normal check CTA to confirm PE Lower extremity venous Doppler to rule out DVT --Hemoptysis; Current Visit: Yes Status: Acute . Plan to address problem: Initially bloodstained sputum, later few drops of benita blood Tracheal injury Probably secondary to intubation and extubation Possible PE, check CTA chest to confirm We will closely monitor, pulmonary following --Hypomagnesemia; Current Visit: Yes Status: Acute . Plan to address problem: Closely monitor electrolytes --Acute hypoxic respiratory failure ; POA Current Visit: Yes Status: Acute Plan to address problem: Intubated and extubated 06/02/2020 Currently on 2 L nasal cannula oxygen --acute on chronic systolic CHF EF 15 to 20% Current Visit: Yes Status: Acute Plan to address problem: Antifailure medication diuretics beta-blockers, Add FAHAD inhibitors creatinine normal range Input output monitoring, fluid restriction Cardiology consulted --Persistent tachycardia; Current Visit: Yes Status: Acute Plan to address problem: Due to underlying illness Closely monitor continue beta-blockers --Severe nonischemic cardiomyopathy; EF 15 to 20% Current Visit: Yes Status: Acute Plan to address problem: Patient is on LifeVest --Atypical chest pain Current Visit: Yes Status: Acute Plan to address problem: 05/01/2020 s/p left heart catheterization, nonobstructive coronaries . severe cardiomyopathy with EF of 15 to 20% --Acute on chronic kidney disease stage III; resolved Current Visit: Yes Status: Acute Plan to address problem: Renal function Normal limits, avoid nephrotoxins --h/o Methamphetamine/marijuana abuse Current Visit: Yes Status: Acute Plan to address problem: Strongly advised to quit recreational drug use Patient verbalized understanding --Mild elevated liver enzymes Current Visit: Yes Status: Acute Plan to address problem: GI has evaluated the patient during previous admission 3 -4 weeks ago Probably secondary to alcohol use, liver congestion, Closely monitor --DVT prophylaxis Current Visit: Yes Status: Acute . Plan to address problem: Heparin We will closely monitor the patient and adjust the management as needed 06/03; patient has mild hemoptysis this morning, probably secondary to tracheal injury due to intubation and extubation Denies any chest pain or shortness of breath, closely monitor, if no improvement we will check with assessment nurse and get a chest x-ray/VQ scan 06/04: VQ scan intermediate probability for PE, 1 dose of therapeutic Lovenox ,now that renal function is normal check CTA to confirm Follow ID pulmonary and cardiology evaluation and recommendations, follow CTA chest Hospitalist Physical - Constitutional Vitals: Temp Pulse Resp BP Pulse Ox 99.1 F 105 H 20 110/76 98 06/04/20 04:33 06/04/20 04:33 06/04/20 04:33 06/04/20 04:33 06/04/20 04:33 General appearance: Present: mild distress, well-nourished HEART Score - HEART Score EKG: Non-specific Age: 45-65 Risk factors: > 3 risk factors or hx of atherosclerotic disease (PATIENT BEING WORKED UP) Troponin: Troponin T < 0.010 ng/mL (0.00-0.029) 06/02/20 13:18 Troponin: < normal limit - Critical Actions Critical Actions: 0-3 pts:0.9-1.7%risk of adverse cardiac event.Candidate for discharge Results - Labs CBC & Chem 7: 06/04/20 05:17 06/04/20 05:17 Labs: Laboratory Last Values WBC 12.0 K/mm3 (4.5-11.0) H 06/04/20 05:17 RBC 4.85 M/mm3 (3.65-5.03) 06/04/20 05:17 Hgb 13.3 gm/dl (11.8-15.2) 06/04/20 05:17 Hct 40.5 % (35.5-45.6) 06/04/20 05:17 MCV 84 fl (84-94) 06/04/20 05:17 MCH 27 pg (28-32) L 06/04/20 05:17 MCHC 33 % (32-34) 06/04/20 05:17 RDW 14.5 % (13.2-15.2) 06/04/20 05:17 Plt Count 153 K/mm3 (140-440) 06/04/20 05:17 Lymph % (Auto) 11.4 % (13.4-35.0) L 06/04/20 05:17 Brooks % (Auto) 10.6 % (0.0-7.3) H 06/04/20 05:17 Eos % (Auto) 0.0 % (0.0-4.3) 06/04/20 05:17 Baso % (Auto) 0.3 % (0.0-1.8) 06/04/20 05:17 Lymph # (Auto) 1.4 K/mm3 (1.2-5.4) 06/04/20 05:17 Brooks # (Auto) 1.3 K/mm3 (0.0-0.8) H 06/04/20 05:17 Eos # (Auto) 0.0 K/mm3 (0.0-0.4) 06/04/20 05:17 Baso # (Auto) 0.0 K/mm3 (0.0-0.1) 06/04/20 05:17 Seg Neutrophils % 77.7 % (40.0-70.0) H 06/04/20 05:17 Seg Neutrophils # 9.3 K/mm3 (1.8-7.7) H 06/04/20 05:17 PT 16.9 Sec. (12.2-14.9) H 06/03/20 17:44 INR 1.37 (0.87-1.13) H 06/03/20 17:44 APTT 36.0 Sec. (24.2-36.6) 06/03/20 17:44 D-Dimer 2700.16 ng/mlDDU (0-234) H 06/03/20 17:44 ABG pH 7.350 (7.320-7.450) 06/02/20 02:00 POC ABG pCO2 37.8 mmHg (32.0-48.0) 06/02/20 02:00 POC ABG pO2 252.0 mmHg (83-108) H 06/02/20 02:00 POC ABG HCO3 20.4 06/02/20 02:00 POC ABG Base Excess -4.6 06/02/20 02:00 ABG Hemoglobin 14.4 (12.0-17.5) 06/02/20 02:00 ABG Sodium 135.5 mmol/L (136.0-145.0) L 06/02/20 02:00 ABG Potassium 4.2 mmol/L (3.40-4.50) 06/02/20 02:00 ABG Chloride 106.0 mmol/L (98-107) 06/02/20 02:00 ABG Glucose 146 mg/dL (65-95) H 06/02/20 02:00 FiO2 100 06/02/20 02:00 Sodium 137 mmol/L (137-145) 06/04/20 05:17 Potassium 3.7 mmol/L (3.6-5.0) 06/04/20 05:17 Chloride 99.5 mmol/L (98-107) 06/04/20 05:17 Carbon Dioxide 25 mmol/L (22-30) 06/04/20 05:17 Anion Gap 16 mmol/L 06/04/20 05:17 BUN 12 mg/dL (9-20) 06/04/20 05:17 Creatinine 1.3 mg/dL (0.8-1.3) 06/04/20 05:17 Estimated GFR > 60 ml/min 06/04/20 05:17 BUN/Creatinine Ratio 9 % 06/04/20 05:17 Glucose 108 mg/dL (75-100) H 06/04/20 05:17 Calcium 8.4 mg/dL (8.4-10.2) 06/04/20 05:17 Phosphorus 3.00 mg/dL (2.5-4.5) 06/03/20 04:33 Magnesium 1.50 mg/dL (1.7-2.3) L 06/03/20 04:33 Total Bilirubin 0.60 mg/dL (0.1-1.2) 06/02/20 01:11 AST 95 units/L (5-40) H 06/02/20 01:11 ALT 78 units/L (7-56) H 06/02/20 01:11 Alkaline Phosphatase 98 units/L (35-129) 06/02/20 01:11 Total Creatine Kinase 69 units/L (55-170) 06/02/20 13:18 CK-MB (CK-2) 2.4 ng/mL (0.0-4.0) 06/02/20 13:18 CK-MB (CK-2) Rel Index 3.4 (0-4) 06/02/20 13:18 Troponin T < 0.010 ng/mL (0.00-0.029) 06/02/20 13:18 Total Protein 6.2 g/dL (6.3-8.2) L 06/02/20 01:11 Albumin 3.8 g/dL (3.9-5) L 06/02/20 01:11 Albumin/Globulin Ratio 1.6 % 06/02/20 01:11 Arterial Blood Glucose 146 mg/dL (65-95) H 06/02/20 02:00 Arterial Blood Ionized Calcium 4.6 mg/dL (4.6-5.3) 06/02/20 02:00 Urine Color Yellow (Yellow) 06/02/20 02:56 Urine Turbidity Slightly-cloudy (Clear) 06/02/20 02:56 Urine pH 5.0 (5.0-7.0) 06/02/20 02:56 Ur Specific Sanger 1.010 (1.003-1.030) 06/02/20 02:56 Urine Protein 100 mg/dl mg/dL (Negative) 06/02/20 02:56 Urine Glucose (UA) Neg mg/dL (Negative) 06/02/20 02:56 Urine Ketones Neg mg/dL (Negative) 06/02/20 02:56 Urine Blood Neg (Negative) 06/02/20 02:56 Urine Nitrite Neg (Negative) 06/02/20 02:56 Urine Bilirubin Neg (Negative) 06/02/20 02:56 Urine Urobilinogen < 2.0 mg/dL (<2.0) 06/02/20 02:56 Ur Leukocyte Esterase Neg (Negative) 06/02/20 02:56 Urine WBC (Auto) 5.0 /HPF (0.0-6.0) 06/02/20 02:56 Urine RBC (Auto) 1.0 /HPF (0.0-6.0) 06/02/20 02:56 U Epithel Cells (Auto) < 1.0 /HPF (0-13.0) 06/02/20 02:56 Urine Bacteria (Auto) 2+ /HPF (Negative) 06/02/20 02:56 Hyaline Casts 1 /LPF 06/02/20 02:56 Urine Mucus Few /HPF 06/02/20 02:56 Urine Yeast (Budding) Few /HPF 06/02/20 02:56 Urine Opiates Screen Presumptive negative 06/02/20 02:56 Urine Methadone Screen Presumptive negative 06/02/20 02:56 Ur Barbiturates Screen Presumptive negative 06/02/20 02:56 Ur Phencyclidine Scrn Presumptive negative 06/02/20 02:56 Ur Amphetamines Screen Presumptive positive 06/02/20 02:56 U Benzodiazepines Scrn Presumptive negative 06/02/20 02:56 Urine Cocaine Screen Presumptive negative 06/02/20 02:56 U Marijuana (THC) Screen Presumptive positive 06/02/20 02:56 Drugs of Abuse Note Disclamer 06/02/20 02:56 Microbiology: Microbiology 06/03/20 17:44 Peripheral/Venous Blood Culture - Preliminary Culture in Progress 06/03/20 17:44 Peripheral/Venous Blood Culture - Preliminary Culture in Progress 06/02/20 08:21 Tracheal Aspirate Sputum Culture - Preliminary Raymond/IV: Voiding Method Indwelling Catheter Active Medications - Current Medications Current Medications: Generic Name Dose Route Start Last Admin Trade Name Freq PRN Reason Stop Dose Admin Acetaminophen 650 mg 06/02/20 04:02 Acetaminophen 325 Mg Tab PO Q4H PRN Non Cardiac Pain or Temp>100.5 Aspirin 325 mg 06/02/20 10:00 06/03/20 11:05 Aspirin 325 Mg Tab PO 325 mg QDAY ELMER Administration Carvedilol 12.5 mg 06/02/20 10:30 06/03/20 21:59 Carvedilol 12.5 Mg Tab PO 12.5 mg BID ELMER Administration Fentanyl 50 mcg 06/02/20 00:57 Fentanyl 100 Mcg/2 Ml Inj IV Q10MIN PRN ANALGESIA Furosemide 40 mg 06/02/20 18:00 06/04/20 06:27 Furosemide 40 Mg/4 Ml Inj IV 40 mg 0600,1800 ELMER Administration Heparin Sodium (Porcine) 5,000 unit 06/02/20 10:00 06/03/20 22:00 Heparin 5,000 Unit/1 Ml Vial SUB-Q Not Given Q12HR ELMER Hydrophilic Ointment 1 applic 06/02/20 00:57 Lip Therapy Vaseline TP Q2HR PRN Dry Lips Cefepime HCl 2 gm in 100 mls @ 200 mls/hr 06/03/20 18:00 06/04/20 02:00 Cefepime/Ns 2 Gm/100 Ml IV 200 mls/hr Q8H ELMER Administration Protocol Multi-Ingred Cream/Lotion/Oil/Oint 1 applic 06/02/20 00:57 Mineral Oil/Petrolatum, White Ophth Oint 3.5 Gm OU Q4HR PRN Dry Eye(s) Nitroglycerin 0.5 inch 06/02/20 06:00 06/04/20 06:30 Nitroglycerin 2% Oint 1 Gm TP Not Given QIDNTG [facility] Protocol Ondansetron HCl 4 mg 06/02/20 04:06 Ondansetron 4 Mg/2 Ml Inj IV Q8H PRN Nausea And Vomiting Spironolactone 25 mg 06/02/20 10:30 06/03/20 11:06 Spironolactone 25 Mg Tab PO 25 mg QDAY [facility] Administration
[2020-06-04] MEDS: HEPARIN 5,000 UNIT/1 ML VIAL SUB-Q SCH (11:35)
[2020-06-04] MEDS: ASPIRIN 325 MG TAB PO SCH (11:49)
[2020-06-04] MEDS: LISINOPRIL 5 MG TAB PO SCH (11:51)
[2020-06-04] MEDS: SPIRONOLACTONE 25 MG TAB PO SCH (11:52)
[2020-06-04] MEDS: carvediloL 12.5 MG TAB PO SCH ×2 (11:52→21:45)
--- NOTE | 2020-06-04 12:02 | Event Note ---
Date: 06/04/20 Called by [facility] yesterday secondary to hemoptysis. INR and PT elevated and D- Dimer elevated. Suggest V/Q which came back intermediate to high prob. Given patient's physiologic low flow state, most likely has pulmonary emboli. Recommend treating with IV heparin and using this to bridge to coumadin given lack of funding, this would be his best option. Clinical picture fits, would not perform CTA and run the risk of dye load incase cardiology feels he needs some form of intervention that would require them given contrast as well.
--- NOTE | 2020-06-04 12:07 | Progress Note ---
Assessment and Plan Patient is currently in stable cardiac status. Lower extremity edema is improved. Continue current cardiac regimen. V/Q scan is intermediate to high probability of PTE. CTA ordered per primary team. Pt is recommended to wear life vest. Vest is currently with the patient, but not in use. Per pt: battery is and he is trying to have it delivered from his home. Pt reports questionable syncopal episode at his home on bathroom floor prior to arrival to hospital. Pt reports he was wearing his life vest during this episode, but denies any life vest alarm or shock. Life vest rep contacted- Last telemetry strips reported on life vest occurred 05/09/2020, these strips were artifactual, no device discharges recorded. Discussed importance of continuing compliance with life vest. Will follow. This patient was seen in conjunction with Dr Layne, who agrees with this assessment and plan of care. - Patient Problems (1) Acute respiratory failure Current Visit: Yes Status: Acute (2) Person under investigation for COVID-19 Current Visit: Yes Status: Acute (3) SARAVANAN (acute kidney injury) Current Visit: Yes Status: Acute (4) Hemoptysis Current Visit: Yes Status: Acute (5) Acute HFrEF (heart failure with reduced ejection fraction) Current Visit: Yes Status: Acute (6) Nonischemic cardiomyopathy Current Visit: Yes Status: Chronic (7) Normal coronary arteries Current Visit: Yes Status: Chronic (8) Polysubstance abuse Current Visit: Yes Status: Chronic Subjective Date of service: 06/04/20 Principal diagnosis: Acute on chronic HFrEF Interval history: Patient is resting in bed comfortably. Alert and oriented. No new cardiac complaints. Pt is recommended to wear lifevest. Vest is currently with the patient, but not in use. Per pt, battery is and he is trying to have it delivered from his home. Tele reviewed, SInus Tach, HR 106, 2 episodes of 4-5 beat VT noted overnight, pt asymptomatic. Objective Last Vital Signs Temp 98.4 F 06/04/20 11:50 Pulse 105 H 06/04/20 11:52 Resp 22 06/04/20 11:50 BP 110/78 06/04/20 11:52 Pulse Ox 95 06/04/20 11:50 - Physical Examination General: Appears Well, No Apparent Distress HEENT: Positive: PERRL, Normocephaly, Mucus Membranes Moist Neck: Positive: neck supple, trachea midline Cardiac: Positive: Reg Rate and Rhythm, S1/S2 Lungs: Positive: clear to auscultation, Normal Breath Sounds Neuro: Positive: Grossly Intact Abdomen: Positive: Soft, Active Bowel Sounds Skin: Negative: Rash, Wound Musculoskeletal: No Pain Extremities: Present: upper extr. pulses, lower extr. pulses, +1 Edema, warm - Labs and Meds Coagulation 06/03/20 Range/Units 17:44 PT 16.9 H (12.2-14.9) Sec. INR 1.37 H (0.87-1.13) APTT 36.0 (24.2-36.6) Sec. CBC 06/03/20 06/04/20 Range/Units 18:27 05:17 WBC 10.9 12.0 H (4.5-11.0) K/mm3 RBC 4.79 4.85 (3.65-5.03) M/mm3 Hgb 13.4 13.3 (11.8-15.2) gm/dl Hct 39.9 40.5 (35.5-45.6) % Plt Count 156 153 (140-440) K/mm3 Lymph # (Auto) 0.9 L 1.4 (1.2-5.4) K/mm3 Curry # (Auto) 0.8 1.3 H (0.0-0.8) K/mm3 Eos # (Auto) 0.0 0.0 (0.0-0.4) K/mm3 Baso # (Auto) 0.0 0.0 (0.0-0.1) K/mm3 Comprehensive Metabolic Panel 06/04/20 Range/Units 05:17 Sodium 137 (137-145) mmol/L Potassium 3.7 (3.6-5.0) mmol/L Chloride 99.5 (98-107) mmol/L Carbon Dioxide 25 (22-30) mmol/L BUN 12 (9-20) mg/dL Creatinine 1.3 (0.8-1.3) mg/dL Glucose 108 H (75-100) mg/dL Calcium 8.4 (8.4-10.2) mg/dL - Imaging and Cardiology Echo: report reviewed (Echocardiogram - Date: 04/28/2020 Global LV systolic function is severly decreased.The estimated EF is 15-20%.The LV size is mild to moderately dilated.There is evidence of mild pulmonary hypertension.There is mild MR.There is no pericardial effusion. ) Cardiac cath: report reviewed ([facility] 04/2020 No angiographic evidence of significant epicardial coronary disese in the right dominant system.2. Severe globally dilated and hypokinetic left ventricle with estimated EF of 15-20%.3. No evidence of aortic stenosis.4. Mildly elevated LVEDP) - EKG Sinus rhythms and dysrhythmias: sinus tachycardia
--- NOTE | 2020-06-04 13:14 | Consultation ---
History of Present Illness - Reason for Consult Consult date: 06/04/20 pneumonia Requesting physician: YANNA ELMORE - History of Present Illness The patient is a 49-year-old male with CHF, hypertension, polysubstance abuse was admitted to the hospital with chest pain. Initial labs did not reveal any leukocytosis. Urinary tox screen was positive for marijuana and amphetamines. Patient later developed fever of 101.3 F, was started on empiric antibiotics. VQ scan revealed intermediate to high probability of PE. Patient also with cough and occasional hemoptysis. Denies IVDU but does admit to snorting as well as smoking of cocaine and methamphetamine. Review of Systems: General: Fever HEENT: no new visual disturbance Respiratory: Cough, hemoptysis Cardiovascular: Chest pain Gastrointestinal: No nausea, vomiting or diarrhea Genitourinary: No dysuria or hematuria Musculoskeletal: No new or worsening neck pain or back pain Neurologic: No headaches, seizures Hematologic: No easy bruising or bleeding Endocrine: No night sweats or acute weight loss Skin: negative for rash, jaundice Psychiatric: No suicidal or homicidal ideation Past History Past Medical History: heart failure, hypertension, renal failure, other (POLYSUBSTANCE ABUSE) Past Surgical History: Other (PELVIC FRACTURE) Social history: smoking, other (POLYSUBSTANCE ABUSE) Medications and Allergies Allergies Allergy/AdvReac Type Severity Reaction Status Date / Time No Known Allergies Allergy Verified 05/09/20 07:26 Home Medications Medication Instructions Recorded Confirmed Last Taken Type Aspirin EC [Ecotrin] 325 mg PO QDAY tablet 06/26/16 06/02/20 Unknown Rx Furosemide [Lasix TAB] 40 mg PO QDAY #30 tablet 05/04/20 06/02/20 Unknown Rx Spironolactone [Aldactone] 25 mg PO QDAY 06/02/20 06/02/20 Unknown History carvediloL [Coreg] 12.5 mg PO BID 06/02/20 06/02/20 Unknown History Active Meds: Active Medications Acetaminophen (Acetaminophen 325 Mg Tab) 650 mg PO Q4H PRN PRN Reason: Non Cardiac Pain or Temp>100.5 Aspirin (Aspirin 325 Mg Tab) 325 mg PO QDAY [facility] Last Admin: 06/04/20 11:49 Dose: 325 mg Documented by: Carvedilol (Carvedilol 12.5 Mg Tab) 12.5 mg PO BID [facility] Last Admin: 06/04/20 11:52 Dose: 12.5 mg Documented by: Furosemide (Furosemide 40 Mg/4 Ml Inj) 40 mg IV 0600,1800 [facility] Last Admin: 06/04/20 06:27 Dose: 40 mg Documented by: Heparin Sodium (Porcine) (Heparin 5,000 Unit/1 Ml Vial) 5,000 unit SUB-Q Q12HR [facility] Last Admin: 06/04/20 11:35 Dose: Not Given Documented by: Hydrophilic Ointment (Lip Therapy Vaseline) 1 applic TP Q2HR PRN PRN Reason: Dry Lips Cefepime HCl (Cefepime/Ns 2 Gm/100 Ml) 2 gm in 100 mls @ 200 mls/hr IV Q8H [facility]; Protocol Last Admin: 06/04/20 02:00 Dose: 200 mls/hr Documented by: Lisinopril (Lisinopril 5 Mg Tab) 2.5 mg PO QDAY [facility] Last Admin: 06/04/20 11:51 Dose: 2.5 mg Documented by: Multi-Ingred Cream/Lotion/Oil/Oint (Mineral Oil/Petrolatum, White Ophth Oint 3.5 Gm) 1 applic OU Q4HR PRN PRN Reason: Dry Eye(s) Nitroglycerin (Nitroglycerin 2% Oint 1 Gm) 0.5 inch TP QIDNTG [facility]; Protocol Last Admin: 06/04/20 11:51 Dose: 0.5 inch Documented by: Ondansetron HCl (Ondansetron 4 Mg/2 Ml Inj) 4 mg IV Q8H PRN PRN Reason: Nausea And Vomiting Spironolactone (Spironolactone 25 Mg Tab) 25 mg PO QDAY [facility] Last Admin: 06/04/20 11:52 Dose: 25 mg Documented by: Physical Examination - Physical Exam Narrative exam: Physical Exam: Constitutional: Alert, cooperative. No acute distress Head, Ears, Nose: Normocephalic, atraumatic. External ears, nose normal Eyes: Conjunctivae/corneas clear. No icterus. No ptosis. Neck: Supple, no meningeal signs Cardiovascular: S1, S2 normal. Respiratory:AE fair with few crackles GI: Soft, non-tender; bowel sounds normal. No peritoneal signs Musculoskeletal: No pedal edema, no cyanosis. Skin: No rash or abscess Hem/Lymphatic: No palpable cervical or supraclavicular nodes. No lymphangitis Psych: Mood ok. Affect normal Neurological: Awake, alert, oriented. No gross abnormality - Constitutional Vitals: Vital Signs Temp Pulse Resp BP Pulse Ox 98.4 F 105 H 22 110/78 95 06/04/20 11:50 06/04/20 11:52 06/04/20 11:50 06/04/20 11:52 06/04/20 11:50 Temperature -Last 24 Hours Temperature 98.4 F Temperature 99.1 F Temperature 99.0 F Temperature 99.6 F Temperature 101.3 F Results - Labs CBC & Chem 7: 06/04/20 05:17 06/04/20 05:17 Labs: Abnormal lab results 06/03/20 06/03/20 06/04/20 Range/Units 17:44 18:27 05:17 WBC 12.0 H (4.5-11.0) K/mm3 MCV 83 L (84-94) fl MCH 27 L (28-32) pg Lymph % (Auto) 8.3 L 11.4 L (13.4-35.0) % [place] % (Auto) 7.5 H 10.6 H (0.0-7.3) % Lymph # (Auto) 0.9 L (1.2-5.4) K/mm3 [place] # (Auto) 1.3 H (0.0-0.8) K/mm3 Seg Neutrophils % 83.8 H 77.7 H (40.0-70.0) % Seg Neutrophils # 9.2 H 9.3 H (1.8-7.7) K/mm3 PT 16.9 H (12.2-14.9) Sec. INR 1.37 H (0.87-1.13) D-Dimer 2700.16 H (0-234) ng/mlDDU Glucose (75-100) mg/dL 06/04/20 Range/Units 05:17 WBC (4.5-11.0) K/mm3 MCV (84-94) fl MCH (28-32) pg Lymph % (Auto) (13.4-35.0) % [place] % (Auto) (0.0-7.3) % Lymph # (Auto) (1.2-5.4) K/mm3 [place] # (Auto) (0.0-0.8) K/mm3 Seg Neutrophils % (40.0-70.0) % Seg Neutrophils # (1.8-7.7) K/mm3 PT (12.2-14.9) Sec. INR (0.87-1.13) D-Dimer (0-234) ng/mlDDU Glucose 108 H (75-100) mg/dL - Imaging and Cardiology Chest x-ray: report reviewed, image reviewed Assessment and Plan Cultures: 06/02/2020 tracheal aspirate culture: In process 06/03/2020 blood culture: In process A/P: 49-year-old male with CHF, hypertension, polysubstance abuse was admitted to the hospital with chest pain: #Pneumonia: also with possibility of PE #Acute respiratory failure: briefly on the vent, now on NC. #Polysubstance abuse: Urinary tox screen positive for methamphetamine and THC. Denies IVDU but does admit to snorting as well as smoking of cocaine and me thamphetamine. #SARAVANAN: Seems to be improving. Recs: -Follow-up blood and sputum cultures -Empiric cefepime for now -Follow-up CTA chest d/w Dr. Elmore. Kayce Abraham MD, FACP [facility] ([facility] O: [phone] F: [phone]
[2020-06-04] MEDS ORDERED: ENOXAPARIN 100 MG/1 ML INJ SUB-Q ONE ×2 (14:00→17:00)
[2020-06-04] MEDS ORDERED: ONDANSETRON 4 MG/2 ML INJ IV ONE (17:46)
--- NOTE | 2020-06-04 18:53 | Cat Scan Report ---
CTA CHEST WITH CONTRAST INDICATION / CLINICAL INFORMATION: MAIN. Evaluate PTE TECHNIQUE: Axial CT images were obtained through the chest after injection of IV contrast. 3 plane LA P and/or 3D reconstructions were produced. All CT scans at this location are performed using CT dose reduction for ALARA by means of automated exposure control. COMPARISON: None available. FINDINGS: The main pulmonary arteries are patent. There is a filling defect within the right mid and upper pulm onary arteries consistent with thrombus within the segmental and peripheral pulmonary arteries. The d istal right lower lung pulmonary arteries not well seen due to right lower lung infiltrate. Several n odular densities are seen within the left lower lung measuring up to 9 mm in size. Trachea appears no rmal. Visualized portions of the upper abdomen appear normal. No acute bone findings are seen IMPRESSION: 1. Filling defects with thrombus within the right upper and mid pulmonary arteries from the segmental and peripheral branches. 2. Dense opacification infiltrate is seen within the right lower lung with small right effusion. 3. Several nodular densities in the left lower lung. Pulmonary nodule cannot be excluded. Follow-up C T examination or PET/CT examination is recommended. CRITICAL RESULT: Time of Discovery (RAILROAD YARD WORKER/CDT): 547 Time of Communication (RAILROAD YARD WORKER/CDT): 547 Licensed Practitioner Receiving Report: Nurse Kiersten Degroot Read-Back Performed: Yes. Signer Name: Naeem Cobian MD Signed: 06/04/2020 6:49 PM Workstation Name: [id number]
[2020-06-04] MEDS ORDERED: HEPARIN 10,000 UNITS/10 ML VIAL IV PRN (19:20)
[2020-06-04 19:51] LABS: Hematocrit 42.7 % (35.5-45.6)
--- NOTE | 2020-06-04 19:52 | Event Note ---
Date: 06/04/20 Acute right-sided PE: Elevated D-dimers/acute renal failure /VQ scan intermediate probability for PE, received 1 dose of therapeutic Lovenox Today patient's creatinine within normal limits, requested CTA chest to confirm PE CTA chest positive for right upper and middle pulmonary artery thrombus. Heparin drip started per protocol, Patient placed on n.p.o. status IR/vascular Dr. Mays consulted Patient is hemodynamically stable On 2 L of nasal cannula oxygen. We will closely monitor the patient and adjust the management as needed Pulmonary is already following the patient Total critical care time today is 50 minutes. The high probability of a clinically significant, sudden or life threatening deterioration of the [cardiac, ID,pulmonary, vascular and metabolic] system(s) required my full and direct attention, intervention and personal management. The aggregate critical care time was [50] minutes. This time is in addition to time spent performing reported procedures but includes the following: [X] Data Review and interpretation [X] Patient assessment and monitoring of vital signs [X] Documentation [X] Medication orders and management Plan of care reviewed with the patient's nurse and the case management
[2020-06-04 20:01] LABS: INR 1.36 (0.87-1.13)
[2020-06-04 20:02] LABS: Partial Thromboplastin Time 42.6 Sec. (24.2-36.6)
[2020-06-04] MEDS: ACETAMINOPHEN 325 MG TAB PO PRN (20:59)
[2020-06-04] MEDS: HEPARIN/ 0.45% NACL DRIP 25,000 UNIT/500 ML BAG IV SCH (21:26)
[2020-06-05] MEDS: CEFEPIME/NS 2 GM/100 ML 2 GM/100 ML BAG IV SCH (01:00)
[2020-06-05 05:18] LABS: BUN/Creatinine Ratio 9; Blood Urea Nitrogen 13 mg/dL (9-20); Calcium 8.6 mg/dL (8.4-10.2); Hemolysis Index 28
[2020-06-05] MEDS: NITROGLYCERIN 2% OINT 1 GM TP SCH ×4 (06:28→18:27)
[2020-06-05] MEDS: FUROSEMIDE 40 MG/4 ML INJ IV SCH (07:00)
--- NOTE | 2020-06-05 08:57 | Event Note ---
Date: 06/05/20 Reviewed chart and imaging. 49 year old male with SOB, CP and hemodynamic instability found to have PE on CTA chest. Upon my review, there is just 1-2 small segmental and subsegmental pulmonary embolisms noted in the right upper lobe and a single subsegmental pulmonary embolism in the right middle lobe. There is no right heart strain on the CT chest. The CT chest did demonstrate right lower lobe pulmonary consolidation which is likely responsible for the bulk of the symptoms. Recommend anticoagulation and lower extremity ultrasound. Will restore diet and see later today.
--- NOTE | 2020-06-05 10:44 | Progress Note ---
Assessment and Plan Patient is currently in stable cardiac status. Lower extremity edema is improved, pt appears near euvolemia. Convert IV lasix to PO lasix. Continue all other current cardiac regimen. CTA positive for PTE. Currently receiving heparin. Pt is recommended to wear LifeVest. Vest is currently with the patient, but not in use. Patient reports he has received LifeVest director check from home, but LifeVest has not been charged and is not being worn. Discussed importance of LifeVest compliance. Spoke with his nurse to assist in charging and wearing LifeVest. Will follow. This patient was seen in conjunction with Dr Layne, who agrees with this assessment and plan of care. - Patient Problems (1) Pulmonary embolism Current Visit: Yes Status: Acute (2) Acute respiratory failure Current Visit: Yes Status: Acute (3) SARAVANAN (acute kidney injury) Current Visit: Yes Status: Acute (4) Hemoptysis Current Visit: Yes Status: Acute (5) Acute HFrEF (heart failure with reduced ejection fraction) Current Visit: Yes Status: Acute (6) Nonischemic cardiomyopathy Current Visit: Yes Status: Chronic (7) Normal coronary arteries Current Visit: Yes Status: Chronic (8) Polysubstance abuse Current Visit: Yes Status: Chronic Subjective Date of service: 06/05/20 Principal diagnosis: Acute on chronic HFrEF Interval history: Patient is resting in bed comfortably. Alert and oriented. No new cardiac complaints. Pt is recommended to wear lifevest. Vest is currently with the patient, but not in use. Tele reviewed, Sinus Rhythm HR 97. Objective Last Vital Signs Temp 99.1 F 06/05/20 07:38 Pulse 101 H 06/05/20 07:38 Resp 18 06/05/20 07:38 BP 93/60 06/05/20 07:38 Pulse Ox 99 06/05/20 10:05 - Physical Examination General: Appears Well, No Apparent Distress HEENT: Positive: PERRL, Normocephaly, Mucus Membranes Moist Neck: Positive: neck supple, trachea midline Cardiac: Positive: Reg Rate and Rhythm, S1/S2 Lungs: Positive: Decreased Breath Sounds Neuro: Positive: Grossly Intact Abdomen: Positive: Soft, Active Bowel Sounds Skin: Negative: Rash, Wound Musculoskeletal: No Pain Extremities: Present: upper extr. pulses, lower extr. pulses, warm. Absent: edema - Labs and Meds Coagulation 06/04/20 Range/Units 19:33 PT 16.8 H (12.2-14.9) Sec. INR 1.36 H (0.87-1.13) APTT 42.6 H (24.2-36.6) Sec. CBC 06/04/20 Range/Units 19:33 Hgb 14.0 (11.8-15.2) gm/dl Hct 42.7 (35.5-45.6) % Plt Count 169 (140-440) K/mm3 Comprehensive Metabolic Panel 06/05/20 Range/Units 04:06 Sodium 134 L (137-145) mmol/L Potassium 3.6 (3.6-5.0) mmol/L Chloride 96.0 L (98-107) mmol/L Carbon Dioxide 28 (22-30) mmol/L BUN 13 (9-20) mg/dL Creatinine 1.4 H (0.8-1.3) mg/dL Glucose 111 H (75-100) mg/dL Calcium 8.6 (8.4-10.2) mg/dL - Imaging and Cardiology EKG: pending Echo: report reviewed (Echocardiogram - Date: 04/28/2020 Global LV systolic function is severly decreased.The estimated EF is 15-20%.The LV size is mild to moderately dilated.There is evidence of mild pulmonary hypertension.There is mild MR.There is no pericardial effusion. ) Cardiac cath: report reviewed ([facility] 04/2020 No angiographic evidence of significant epicardial coronary disese in the right dominant system.2. Severe globally dilated and hypokinetic left ventricle with estimated EF of 15-20%.3. No evidence of aortic stenosis.4. Mildly elevated LVEDP) - Telemetry EKG Rhythm: Sinus Rhythm - EKG Sinus rhythms and dysrhythmias: sinus tachycardia
--- NOTE | 2020-06-05 11:09 | Consultation ---
History of Present Illness - Reason for Consult Consult date: 06/05/20 pulmonary embolism Requesting physician: YANNA ELMORE - History of Present Illness 49-year-old male who started having sharp, nonradiating precordial chest pain at home about 1 hour prior to presentation, chest pain was associated with shortness of breath, EMS was called and they found patient to have low blood pressure. Patient has history of polysubstance abuse which includes amphetamine. There is no history of fever or chills, cough, nausea or vomiting and diaphoresis, on arrival at the emergency room patient was intubated and hooked up to the mechanical ventilation because of respiratory failure. Patient was ultimately extubated, found to have right lower lung pneumonia, and has ex tensive cardiac issues with heart failure with reduced ejection fraction. CT was obtained demonstrating pulmonary embolism, and patient had shortness of breath with chest pain and bloody sputum production and vascular was consulted. Patient also reports left lower extremity swelling for about 3 weeks. He reports helping a friend move over a multiday period with travel time between the [address] 1 week before the swelling of his left lower extremity. Past History Past Medical History: heart failure, hypertension, renal failure, other (POLYSUBSTANCE ABUSE) Past Surgical History: Other (PELVIC FRACTURE) Social history: smoking, other (POLYSUBSTANCE ABUSE) Medications and Allergies Allergies Allergy/AdvReac Type Severity Reaction Status Date / Time No Known Allergies Allergy Verified 05/09/20 07:26 Home Medications Medication Instructions Recorded Confirmed Last Taken Type Aspirin EC [Ecotrin] 325 mg PO QDAY tablet 06/26/16 06/02/20 Unknown Rx Furosemide [Lasix TAB] 40 mg PO QDAY #30 tablet 05/04/20 06/02/20 Unknown Rx Spironolactone [Aldactone] 25 mg PO QDAY 06/02/20 06/02/20 Unknown History carvediloL [Coreg] 12.5 mg PO BID 06/02/20 06/02/20 Unknown History Active Meds: Active Medications Acetaminophen (Acetaminophen 325 Mg Tab) 650 mg PO Q4H PRN PRN Reason: Non Cardiac Pain or Temp>100.5 Last Admin: 06/04/20 20:59 Dose: 650 mg Documented by: Carvedilol (Carvedilol 12.5 Mg Tab) 12.5 mg PO BID [facility] Last Admin: 06/04/20 21:45 Dose: Not Given Documented by: Furosemide (Furosemide 40 Mg/4 Ml Inj) 40 mg IV 0600,1800 [facility] Last Admin: 06/05/20 07:00 Dose: 40 mg Documented by: Heparin Sodium (Porcine) (Heparin 10,000 Units/10 Ml Vial) 3,500 unit 40 unit/kg (3500 unit) IV Q6H PRN PRN Reason: Anti-Xa Assay < 0.1 units/ml Hydrophilic Ointment (Lip Therapy Vaseline) 1 applic TP Q2HR PRN PRN Reason: Dry Lips Cefepime HCl (Cefepime/Ns 2 Gm/100 Ml) 2 gm in 100 mls @ 200 mls/hr IV Q8H [facility]; Protocol Last Admin: 06/05/20 01:00 Dose: 200 mls/hr Documented by: Heparin Sodium/Sodium Chloride (Heparin/ 0.45% Nacl-25,000 Unit/500 Ml) 25,000 unit in 500 mls @ 26 mls/hr IV TITR [facility]; Protocol Last Titration: 06/05/20 06:06 Dose: 0 units/hr, 0 mls/hr Documented by: Lisinopril (Lisinopril 5 Mg Tab) 2.5 mg PO QDAY [facility] Last Admin: 06/04/20 11:51 Dose: 2.5 mg Documented by: Multi-Ingred Cream/Lotion/Oil/Oint (Mineral Oil/Petrolatum, White Ophth Oint 3.5 Gm) 1 applic OU Q4HR PRN PRN Reason: Dry Eye(s) Nitroglycerin (Nitroglycerin 2% Oint 1 Gm) 0.5 inch TP QIDNTG [facility]; Protocol Last Admin: 06/05/20 06:28 Dose: Not Given Documented by: Ondansetron HCl (Ondansetron 4 Mg/2 Ml Inj) 4 mg IV Q8H PRN PRN Reason: Nausea And Vomiting Spironolactone (Spironolactone 25 Mg Tab) 25 mg PO QDAY [facility] Last Admin: 06/04/20 11:52 Dose: 25 mg Documented by: Review of Systems All systems: negative (see HPI) Exam - Constitutional Vitals: Temp Pulse Resp BP Pulse Ox 99.1 F 101 H 18 93/60 99 06/05/20 07:38 06/05/20 07:38 06/05/20 07:38 06/05/20 07:38 06/05/20 10:05 General appearance: Present: no acute distress - EENT Eyes: Present: EOM intact ENT: hearing intact - Respiratory Respiratory effort: other (Coughing up blood-tinged sputum) - Extremities Extremities: normal temperature, normal color, abnormal (Pedal pulses palpable, 2+ edema of the left lower extremity) - Abdominal General gastrointestinal: Present: soft, non-tender - Psychiatric Psychiatric: appropriate mood/affect, cooperative Results - Labs CBC & Chem 7: 06/04/20 19:33 06/05/20 04:06 Labs: Abnormal lab results 06/04/20 06/05/20 06/05/20 Range/Units 19:33 04:06 04:06 PT 16.8 H (12.2-14.9) Sec. INR 1.36 H (0.87-1.13) APTT 42.6 H (24.2-36.6) Sec. Heparin Anti-Xa Level 1.00 H (0.3-0.7) U.I./ml Sodium 134 L (137-145) mmol/L Chloride 96.0 L (98-107) mmol/L Creatinine 1.4 H (0.8-1.3) mg/dL Glucose 111 H (75-100) mg/dL Assessment and Plan 49-year-old male with past medical history of heart failure with reduced ejection fraction, polysubstance abuse, hypertension, renal issues, who presented with altered mental status and shortness of breath requiring intubation who has been extubated. CT scan demonstrates low thrombus burden pulmonary embolism. CT also demonstra neil large right lower lobe consolidation/pneumonia. No right-sided heart failure on CT scan. Patient does not require endovascular treatment of pulmonary embolism. Patient does have history quite concerning for left lower extremity DVT and does have a small amount of pulmonary embolism. Ordered venous Dopplers. Can follow-up in office. Will need to be anticoagulated for at least 3 months. Can transition to oral anticoagulation. Given renal issues, consider Eliquis.
--- NOTE | 2020-06-05 13:27 | Progress Note ---
Assessment and Plan Cultures: 06/02/2020 tracheal aspirate culture: In process 06/03/2020 blood culture: In process A/P: 49-year-old male with CHF, hypertension, polysubstance abuse was admitted to the hospital with chest pain: #R pneumonia: also with acute PE, probable pulmonary infarct, though based on clot burden, superimposed pneumonia quite likely, hence treating with abx. #Acute respiratory failure: briefly on the vent, now on NC. #Polysubstance abuse: Urinary tox screen positive for methamphetamine and THC. Denies IVDU but does admit to snorting as well as smoking of cocaine and methamphetamine. #SARAVANAN: creatinine ranging between 1.3 to 1.5. Recs: -Follow-up blood and sputum cultures -cefepime de-escalated to PO Ceftin 500 mg BID + PO Doxycycline 100 mg BID x 5 days -anticoagulation per primary Kayce Abraham MD, FACP [facility] ([facility] O: [phone] F: [phone] Subjective Date of service: 06/05/20 Principal diagnosis: Acute on chronic HFrEF Interval history: Low grade fever. Remains on room air. CT showed PE. Objective - Exam Narrative Exam: Physical Exam: Constitutional: Alert, cooperative. No acute distress Head, Ears, Nose: Normocephalic, atraumatic. External ears, nose normal Eyes: Conjunctivae/corneas clear. No icterus. No ptosis. Neck: Supple, no meningeal signs Cardiovascular: S1, S2 normal. Respiratory:AE fair with few crackles GI: Soft, non-tender; bowel sounds normal. No peritoneal signs Musculoskeletal: No pedal edema, no cyanosis. Skin: No rash or abscess Hem/Lymphatic: No palpable cervical or supraclavicular nodes. No lymphangitis Psych: Mood ok. Affect normal Neurological: Awake, alert, oriented. No gross abnormality - Constitutional Vitals: Vital Signs Temp Pulse Resp BP Pulse Ox 99.2 F 99 H 18 116/72 97 06/05/20 11:15 06/05/20 11:15 06/05/20 11:15 06/05/20 11:15 06/05/20 11:15 Temperature -Last 24 Hours Temperature 99.2 F Temperature 99.1 F Temperature 97.5 F Temperature 97.8 F Temperature 100.8 F Temperature 98.2 F - Labs CBC & Chem 7: 06/04/20 19:33 06/05/20 04:06 Labs: Abnormal lab results 06/04/20 06/05/20 06/05/20 Range/Units 19:33 04:06 04:06 PT 16.8 H (12.2-14.9) Sec. INR 1.36 H (0.87-1.13) APTT 42.6 H (24.2-36.6) Sec. Heparin Anti-Xa Level 1.00 H (0.3-0.7) U.I./ml Sodium 134 L (137-145) mmol/L Chloride 96.0 L (98-107) mmol/L Creatinine 1.4 H (0.8-1.3) mg/dL Glucose 111 H (75-100) mg/dL
--- NOTE | 2020-06-05 13:32 | Vascular Lab Report ---
DUPLEX DOPPLER LOWER EXTREMITY VEINS, BILATERAL INDICATION / CLINICAL INFORMATION: swelling, pulmonary embolism. TECHNIQUE: Duplex doppler imaging was performed through the veins of both lower extremities using venous reji noble and other maneuvers. COMPARISON: None available. FINDINGS: RIGHT COMMON FEMORAL VEIN: Negative. RIGHT FEMORAL VEIN: Negative. RIGHT POPLITEAL VEIN: Negative. RIGHT CALF VEINS: Negative. LEFT COMMON FEMORAL VEIN: Negative. LEFT FEMORAL VEIN: Negative. LEFT POPLITEAL VEIN: Negative. LEFT CALF VEINS: Negative. ADDITIONAL FINDINGS: None. IMPRESSION: 1. No sonographic evidence for DVT in either lower extremity. Signer Name: Humberto Ibanez MD FACOfelia Signed: 06/05/2020 1:27 PM Workstation Name: [id number]
[2020-06-05] MEDS: ACETAMINOPHEN 325 MG TAB PO PRN (15:18)
[2020-06-05] MEDS: LISINOPRIL 5 MG TAB PO SCH (15:35)
[2020-06-05] MEDS: carvediloL 12.5 MG TAB PO SCH ×2 (15:38→21:25)
[2020-06-05] MEDS: SPIRONOLACTONE 25 MG TAB PO SCH (15:39)
[2020-06-05] MEDS: DOXYCYCLINE 100 MG CAP PO SCH ×2 (15:42→21:25)
--- NOTE | 2020-06-05 17:47 | Discharge Summary ---
Providers - Providers Date of Admission: 06/02/20 18:31 Date of discharge: 06/06/20 Attending physician: ROXANNE BLUE 06/02/20 03:55 Consult to Physician [CONS] Routine Comment: Consulting Provider: DANA REARDON Physician Instructions: Reason For Exam: CHEST PAIN, AMPHETAMIN ABUSE 06/03/20 17:55 Consult to Physician [CONS] Routine Comment: Consulting Provider: GARRET SPIVEY Physician Instructions: Reason For Exam: Hospital acquired pneumonia/VAP 06/04/20 19:31 Consult to Physician [CONS] Routine Comment: Consulting Provider: ANA MAYS Physician Instructions: Reason For Exam: Thrombus in rt upper and mid pulmonary artery Primary care physician: [employer]LECTIONS ATTORNEY Hospitalization Condition: Critical Hospital course: Acute right-sided PE: Elevated D-dimers/acute renal failure /VQ scan intermediate probability for PE, received 1 dose of therapeutic Lovenox Today patient's creatinine within normal limits, requested CTA chest to confirm PE CTA chest positive for right upper and middle pulmonary artery thrombus. Heparin drip started per protocol, Patient placed on n.p.o. status IR/vascular Dr. Mays consulted Patient is hemodynamically stable On 2 L of nasal cannula oxygen. Disposition: DC- TO HOME OR SELFCARE Exam - Constitutional Vitals: Temp Pulse Resp BP Pulse Ox 99.2 F 90 18 125/60 97 06/05/20 11:15 06/05/20 15:41 06/05/20 11:15 06/05/20 15:35 06/05/20 11:15 Plan Follow up with: COLLIN ROGERS MD [Primary Care Provider] - 7 Days
[2020-06-05] MEDS: HEPARIN/ 0.45% NACL DRIP 25,000 UNIT/500 ML BAG IV SCH (18:27)
[2020-06-06 05:24] LABS: Hematocrit 36.8 % (35.5-45.6); Hemoglobin 12.3 gm/dl (11.8-15.2)
[2020-06-06 05:40] LABS: Calcium 8.4 mg/dL (8.4-10.2)
[2020-06-06] MEDS: NITROGLYCERIN 2% OINT 1 GM TP SCH ×4 (06:04→13:12)
[2020-06-06] MEDS: CEFEPIME/NS 2 GM/100 ML 2 GM/100 ML BAG IV SCH (09:08)
[2020-06-06] MEDS: SPIRONOLACTONE 25 MG TAB PO SCH (09:16)
[2020-06-06] MEDS: DOXYCYCLINE 100 MG CAP PO SCH (09:16)
[2020-06-06] MEDS: carvediloL 12.5 MG TAB PO SCH (09:16)
--- NOTE | 2020-06-06 09:52 | Progress Note ---
Assessment and Plan Assessment and Plan Assessment and plan: --Hospital-acquired pneumonia: Current Visit: Yes Status: Acute . Plan to address problem: Versus ventilator associated pneumonia. Continue cefepime, follow cultures Oxygen support, ID consulted. --Elevated D-dimers: Current Visit: Yes Status: Acute . Plan to address problem: VQ scan intermediate probability for PE, 1 dose of therapeutic dose of Lovenox Now that renal function is normal check CTA to confirm PE Lower extremity venous Doppler to rule out DVT --Hemoptysis; Current Visit: Yes Status: Acute . Plan to address problem: Initially bloodstained sputum, later few drops of benita blood Tracheal injury Probably secondary to intubation and extubation Possible PE, check CTA chest to confirm We will closely monitor, pulmonary following --Hypomagnesemia; Current Visit: Yes Status: Acute . Plan to address problem: Closely monitor electrolytes --Acute hypoxic respiratory failure ; POA Current Visit: Yes Status: Acute Plan to address problem: Intubated and extubated 06/02/2020 Currently on 2 L nasal cannula oxygen --acute on chronic systolic CHF EF 15 to 20% Current Visit: Yes Status: Acute Plan to address problem: Antifailure medication diuretics beta-blockers, Add FAHAD inhibitors creatinine normal range Input output monitoring, fluid restriction Cardiology consulted --Persistent tachycardia; Current Visit: Yes Status: Acute Plan to address problem: Due to underlying illness Closely monitor continue beta-blockers --Severe nonischemic cardiomyopathy; EF 15 to 20% Current Visit: Yes Status: Acute Plan to address problem: Patient is on LifeVest --Atypical chest pain Current Visit: Yes Status: Acute Plan to address problem: 05/01/2020 s/p left heart catheterization, nonobstructive coronaries . severe cardiomyopathy with EF of 15 to 20% --Acute on chronic kidney disease stage III; resolved Current Visit: Yes Status: Acute Plan to address problem: Renal function Normal limits, avoid nephrotoxins --h/o Methamphetamine/marijuana abuse Current Visit: Yes Status: Acute Plan to address problem: Strongly advised to quit recreational drug use Patient verbalized understanding --Mild elevated liver enzymes Current Visit: Yes Status: Acute Plan to address problem: GI has evaluated the patient during previous admission 3 -4 weeks ago Probably secondary to alcohol use, liver congestion, Closely monitor --DVT prophylaxis Current Visit: Yes Status: Acute . Plan to address problem: Heparin Subjective Date of service: 06/05/20 Principal diagnosis: Acute on chronic HFrEF Interval history: We will closely monitor the patient and adjust the management as needed 06/03; patient has mild hemoptysis this morning, probably secondary to tracheal injury due to intubation and extubation Denies any chest pain or shortness of breath, closely monitor, if no improvement we will check with device processing engineer and get a chest x-ray/VQ scan 06/04: VQ scan intermediate probability for PE, 1 dose of therapeutic Lovenox ,now that renal function is normal check CTA to confirm Follow ID pulmonary and cardiology evaluation and recommendations, follow CTA chest Objective - Constitutional Vitals: Vital Signs - 12hr 06/05/20 06/06/20 06/06/20 23:02 00:46 03:59 Temperature 97.9 F 98.5 F Pulse Rate 88 91 H Respiratory 20 20 Rate Blood Pressure 90/58 92/62 O2 Sat by Pulse 96 99 94 Oximetry 06/06/20 06/06/20 06:00 07:41 Temperature 98.7 F Pulse Rate 88 89 Respiratory 18 Rate Blood Pressure 98/62 O2 Sat by Pulse 95 Oximetry General appearance: Present: no acute distress, well-nourished - EENT Eyes: PERRL, EOM intact ENT: hearing intact, clear oral mucosa Ears: bilateral: normal - Neck Neck: supple, normal ROM - Respiratory Respiratory effort: normal Respiratory: bilateral: CTA - Breasts Breasts: normal - Cardiovascular Rhythm: regular Heart Sounds: Present: S1 & S2. Absent: gallop, rub Extremities: pulses intact, No edema, normal color, Full ROM - Gastrointestinal General gastrointestinal: Present: soft, non-tender, non-distended, normal bowel sounds - Genitourinary Male genitourinary: normal - Integumentary Integumentary: clear, warm, dry - Musculoskeletal Musculoskeletal: 1, strength equal bilaterally - Neurologic Neurologic: moves all extremities - Psychiatric Psychiatric: memory intact, appropriate mood/affect, intact judgment & insight - Labs CBC & Chem 7: 06/06/20 04:32 06/06/20 04:32 Labs: Abnormal lab results 06/06/20 Range/Units 04:32 Sodium 134 L (137-145) mmol/L Chloride 96.0 L (98-107) mmol/L BUN 23 H (9-20) mg/dL Creatinine 1.6 H (0.8-1.3) mg/dL Glucose 127 H (75-100) mg/dL HEART Score - HEART Score EKG: Non-specific Age: 45-65 Risk factors: > 3 risk factors or hx of atherosclerotic disease (PATIENT BEING WORKED UP) Troponin: Troponin T < 0.010 ng/mL (0.00-0.029) 06/02/20 13:18 Troponin: < normal limit - Critical Actions Critical Actions: 0-3 pts:0.9-1.7%risk of adverse cardiac event.Candidate for discharge
[2020-06-06] MEDS ORDERED: FUROSEMIDE 40 MG TAB PO SCH (10:00)
--- NOTE | 2020-06-06 10:10 | Progress Note ---
Assessment and Plan Currently stable cardiac status. Pt appears to be at euvolemia. VSS. Cont PO lasix daily and aldactone. Hold ACEI in setting of renal insufficiency. Cont coreg with hold parameters. Chest CTA shows right upper and mid pulmonary artery PE, RLL pneumomia. COVID-19 testing is negative. Cont abx per ID team. Pt has been initiated on heparin gtt in setting of acute PE. BLE venous studies negative for DVT. Recommend conversion to OAC per primary team. Pt may discharge from cardiology standpoint. LifeVest is in place. Follow up in our [place] office with Dr. Anson Pete on 06/22/2020 @ 9:00AM. The patient has been seen in conjunction with Dr. Layne who agrees with the assessment and plan of care. - Patient Problems (1) Acute pulmonary embolism Current Visit: Yes Status: Acute (2) Acute respiratory failure Current Visit: Yes Status: Acute Plan to address problem: s/p mechanical ventilation (3) Pneumonia Current Visit: Yes Status: Acute (4) Acute on chronic heart failure with reduced ejection fraction and diastolic dysfunction Current Visit: Yes Status: Acute (5) Nonischemic cardiomyopathy Current Visit: Yes Status: Chronic (6) Normal coronary arteries Current Visit: Yes Status: Chronic (7) Uses LifeVest defibrillator Current Visit: Yes Status: Chronic (8) SARAVANAN (acute kidney injury) Current Visit: Yes Status: Acute (9) Polysubstance abuse Current Visit: Yes Status: Chronic Subjective Date of service: 06/06/20 Principal diagnosis: Acute on chronic HFrEF Interval history: pt resting in bed, no current cardiac complaints, feels ready to discharge home. tele reviewed - in SR HR 90s, 2-3 beat runs infrequent NSVT noted overnight, pt asymptomatic. LifeVest in place. Objective Last Vital Signs Temp 98.7 F 06/06/20 07:41 Pulse 89 06/06/20 07:41 Resp 18 06/06/20 07:41 BP 98/62 06/06/20 07:41 Pulse Ox 95 06/06/20 07:41 - Physical Examination General: Appears Well, No Apparent Distress HEENT: Positive: PERRL, Normocephaly, Mucus Membranes Moist Neck: Positive: neck supple, trachea midline Cardiac: Positive: Reg Rate and Rhythm, S1/S2 Lungs: Positive: Decreased Breath Sounds Neuro: Positive: Grossly Intact Abdomen: Positive: Soft, Active Bowel Sounds Skin: Negative: Rash, Wound Musculoskeletal: No Pain Extremities: Present: upper extr. pulses, lower extr. pulses, warm. Absent: edema - Labs and Meds CBC 06/06/20 Range/Units 04:32 Hgb 12.3 (11.8-15.2) gm/dl Hct 36.8 (35.5-45.6) % Plt Count 180 (140-440) K/mm3 Comprehensive Metabolic Panel 06/06/20 Range/Units 04:32 Sodium 134 L (137-145) mmol/L Potassium 3.7 (3.6-5.0) mmol/L Chloride 96.0 L (98-107) mmol/L Carbon Dioxide 25 (22-30) mmol/L BUN 23 H (9-20) mg/dL Creatinine 1.6 H (0.8-1.3) mg/dL Glucose 127 H (75-100) mg/dL Calcium 8.4 (8.4-10.2) mg/dL - Imaging and Cardiology EKG: report reviewed, image reviewed Echo: report reviewed (Echocardiogram - Date: 04/28/2020 Global LV systolic function is severly decreased.The estimated EF is 15-20%.The LV size is mild to moderately dilated.There is evidence of mild pulmonary hypertension.There is mild MR.There is no pericardial effusion. ) Cardiac cath: report reviewed ([facility] 04/2020 No angiographic evidence of significant epicardial coronary disese in the right dominant system.2. Severe globally dilated and hypokinetic left ventricle with estimated EF of 15-20%.3. No evidence of aortic stenosis.4. Mildly elevated LVEDP) - Telemetry EKG Rhythm: Sinus Rhythm - EKG Sinus rhythms and dysrhythmias: sinus tachycardia
[2020-06-06] MEDS ORDERED: carvediloL 12.5 MG TAB PO SCH (10:30)
--- NOTE | 2020-06-06 13:01 | Progress Note ---
Assessment and Plan Cultures: 06/02/2020 tracheal aspirate: Usual respiratory preet 06/03/2020 urine culture: GNR 06/03/2020 blood culture: No growth A/P: 49-year-old male with CHF, hypertension, polysubstance abuse was admitted to the hospital with chest pain: #R pneumonia: also with acute PE, probable pulmonary infarct, though based on clot burden, superimposed pneumonia quite likely, hence treating with abx. #Acute respiratory failure: briefly on the vent, now on room air #Polysubstance abuse: Urinary tox screen positive for methamphetamine and THC. Denies IVDU but does admit to snorting as well as smoking of cocaine and methamphetamine. #SARAVANAN: creatinine ranging between 1.3 to 1.5. #Positive urine culture: likely contaminant. UA without pyuria, no symptoms either. Recs: -continue PO Ceftin 500 mg BID + PO Doxycycline 100 mg BID x 4 more days -anticoagulation per primary ID will sign off. Please call with questions. Kayce Abraham MD, FACP [facility] ([facility] O: [phone] F: [phone] Subjective Date of service: 06/06/20 Principal diagnosis: Acute on chronic HFrEF Interval history: No fever. Feels well. Objective - Exam Narrative Exam: Physical Exam: Constitutional: Alert, cooperative. No acute distress Head, Ears, Nose: Normocephalic, atraumatic. External ears, nose normal Eyes: Conjunctivae/corneas clear. No icterus. No ptosis. Neck: Supple, no meningeal signs Cardiovascular: S1, S2 normal. Respiratory:AE fair b/l GI: Soft, non-tender; bowel sounds normal. No peritoneal signs Musculoskeletal: No pedal edema, no cyanosis. Skin: No rash or abscess Hem/Lymphatic: No palpable cervical or supraclavicular nodes. No lymphangitis Psych: Mood ok. Affect normal Neurological: Awake, alert, oriented. No gross abnormality - Constitutional Vitals: Vital Signs Temp Pulse Resp BP Pulse Ox 97.5 F L 93 H 18 106/78 98 06/06/20 12:07 06/06/20 12:07 06/06/20 12:07 06/06/20 12:07 06/06/20 12:07 Temperature -Last 24 Hours Temperature 97.5 F Temperature 98.7 F Temperature 98.5 F Temperature 97.9 F Temperature 98.3 F - Labs CBC & Chem 7: 06/06/20 04:32 06/06/20 04:32 Labs: Abnormal lab results 06/06/20 Range/Units 04:32 Sodium 134 L (137-145) mmol/L Chloride 96.0 L (98-107) mmol/L BUN 23 H (9-20) mg/dL Creatinine 1.6 H (0.8-1.3) mg/dL Glucose 127 H (75-100) mg/dL
[2020-06-06 18:40] VITALS: BP 108/80
== END 2020-06-06 19:03 | disposition home or self-care (01) | DRG 871 ==
LOC: ED 00:50 → UNDOADMIN 02:54 → CC1 02:54 → 4A 18:24 → CC1 18:24 → UNDOADMIN 18:24 → CC1 18:27 → 4A 18:27 → CC1 18:31 → 4A 18:31
PROVIDERS: ADMIT Internal Medicine; ATTEND Internal Medicine
PROC: 0BH17EZ Insertion of Endotracheal Airway into Trachea, Via Natural or Artificial Opening (ICD-10-PCS; principal; 2020-06-02)
PROC: 5A1935Z Respiratory Ventilation, Less than 24 Consecutive Hours (ICD-10-PCS; 2020-06-02)
PROC: 4A033R1 Measurement of Arterial Saturation, Peripheral, Percutaneous Approach (ICD-10-PCS; 2020-06-02)
DX: A41.9 Sepsis, unspecified organism (principal); J96.01 Acute respiratory failure with hypoxia; N17.0 Acute kidney failure with tubular necrosis; I50.23 Acute on chronic systolic (congestive) heart failure; J18.9 Pneumonia, unspecified organism; I13.0 Hypertensive heart and chronic kidney disease with heart failure and stage 1 through stage 4 chronic kidney disease, or unspecified chronic kidney disease; R04.2 Hemoptysis; F15.10 Other stimulant abuse, uncomplicated; E83.42 Hypomagnesemia; Z20.822 Contact with and (suspected) exposure to COVID-19; F19.10 Other psychoactive substance abuse, uncomplicated; N18.30 Chronic kidney disease, stage 3 unspecified; Z79.899 Other long term (current) drug therapy; Z79.82 Long term (current) use of aspirin; Y95 Nosocomial condition
CPT/HCPCS: 36415; 36430; 36600; 71045; 71046; 71275; 78580; 80048; 80053; 80307; 81001; 82550; 82553; 82805; 83735; 84100; 84484; 85014; 85018; 85025; 85049; 85379; 85520; 85610; 85730; 87040; 87070; 87076; 87086; 87186; 87205; 93005; 93970; 94002; 94003; 94760; 96361; 96365; 96366; 96367; 99406; G0378; A9540; J0692; J1644; J1650; J1940; J2405; J3010; J3475; Q9967; U0003

== ENCOUNTER 2020-06-12 13:02 | Inpatient (IN) | payer OTHER ==
--- NOTE | 2020-06-12 16:51 | XRay Report ---
XR chest 1V ap INDICATION / CLINICAL INFORMATION: Lightheadedness/Dizziness COMPARISON: June 03, 2020 FINDINGS: SUPPORT DEVICES: None. HEART / MEDIASTINUM: No significant abnormality. LUNGS / PLEURA: Lungs are clear. Right costophrenic sulcus is minimally blunted. Hazy opacity of the right lower lung zone.. No pneumothorax. ADDITIONAL FINDINGS: No significant additional findings. IMPRESSION: 1. Small right pleural effusion with right lower lung zone airspace disease.. Signer Name: Josh Nichols MD Signed: 06/12/2020 4:46 PM Workstation Name: [id number]
--- NOTE | 2020-06-12 17:11 | Cat Scan Report ---
NONENHANCED CT SCAN OF THE HEAD: INDICATION / CLINICAL INFORMATION: 49 years Male; Lightheadedness/Dizziness. TECHNIQUE: Routine CT head without contrast. All CT scans at this location are performed using CT dos e reduction for ALARA by means of automated exposure control. COMPARISON: None. FINDINGS: BRAIN / INTRACRANIAL CONTENTS: No acute hemorrhage, mass effect, midline shift, hydrocephalus, or acu te, large territorial infarct. No chronic infarct or focal atrophy. Normal brain volume and ventricul ar/sulcal size for age. No significant white matter abnormality. CRANIOCERVICAL JUNCTION: No significant abnormality. ORBITS: No significant abnormality of visualized orbits. SINUSES / MASTOIDS: No significant abnormality of the visualized paranasal sinuses or mastoid air stephanie ls. ADDITIONAL FINDINGS: None. IMPRESSION: No focal mass, hemorrhage, hydrocephalus, or acute, large territorial infarct. Signer Name: Lenny Gilmore MD Signed: 06/12/2020 5:06 PM Workstation Name: [id number]
[2020-06-12 17:12] LABS: Hematocrit 40.3 % (35.5-45.6); Hemoglobin 13.2 gm/dl (11.8-15.2); Mean Corpuscular HGB Conc 33 % (32-34); Mean Corpuscular Volume 84 fl (84-94); Platelet Count 300 K/mm3 (140-440); Red Cell Distribution Width 15.4 % (13.2-15.2)
[2020-06-12 17:41] LABS: INR 1.18 (0.87-1.13)
--- NOTE | 2020-06-12 18:38 | Emergency Department Report ---
ED General Adult HPI - General Chief complaint: Dizziness Stated complaint: WEAKNESS,DIZZINESS Time Seen by Provider: 06/12/20 13:07 Source: patient, EMS Mode of arrival: Stretcher Limitations: No Limitations - History of Present Illness Initial comments: The patient presents to the emergency department the chief complaint of dizziness. Patient states that he woke up this morning and took to pull his oxygen take his medications which included Lasix, potassium, spironolactone and Coreg. Patient states 2 hours after taking his medications he became very dizzy and described that the room was spinning. He states only thing that would make it stop was closing his eyes. Patient states on standing up the dizziness became worse. The patient has a LifeVest but states that he needs to be charge. Asked patient to have someone bring the crushed stone grader to him while he is being evaluated in the emergency department. -: Sudden Severity scale (0 -10): 0 Improves with: rest Worsens with: none, movement Associated Symptoms: denies other symptoms Treatments Prior to Arrival: none - Related Data Previous Rx's Medication Instructions Recorded Last Taken Type Apixaban [Eliquis starter pack] 5 mg PO BID #60 tab.ds.pk 06/06/20 Unknown Rx Aspirin EC [Ecotrin] 325 mg PO QDAY #100 tablet 06/06/20 Unknown Rx Furosemide [Lasix TAB] 40 mg PO QDAY 30 Days #30 tablet 06/06/20 Unknown Rx Potassium Chloride [K-Dur] 10 meq PO QDAY #30 tablet 06/06/20 Unknown Rx Spironolactone [Aldactone] 25 mg PO QDAY #30 tablet 06/06/20 Unknown Rx carvediloL [Coreg] 12.5 mg PO BID #60 06/06/20 Unknown Rx carvediloL [Coreg] 12.5 mg PO BID #60 tablet 06/06/20 Unknown Rx Allergies Allergy/AdvReac Type Severity Reaction Status Date / Time No Known Allergies Allergy Verified 05/09/20 07:26 ED Review of Systems ROS: Stated complaint: WEAKNESS,DIZZINESS Other details as noted in HPI Comment: All other systems reviewed and negative Constitutional: denies: chills, fever Eyes: denies: eye pain, eye discharge, vision change ENT: denies: ear pain, throat pain Respiratory: denies: cough, shortness of breath, wheezing Cardiovascular: denies: chest pain, palpitations Endocrine: no symptoms reported Gastrointestinal: denies: abdominal pain, nausea, diarrhea Genitourinary: denies: urgency, dysuria Musculoskeletal: denies: back pain, joint swelling, arthralgia Skin: denies: rash, lesions Neurological: denies: headache, weakness, paresthesias Psychiatric: denies: anxiety, depression Hematological/Lymphatic: denies: easy bleeding, easy bruising ED Past Medical Hx - Past Medical History Previous Medical History?: Yes Hx Hypertension: Yes Hx Heart Attack/AMI: No Hx Congestive Heart Failure: Yes Hx Diabetes: No Hx Liver Disease: No Hx Renal Disease: No Hx Sickle Cell Disease: No Hx Seizures: No Hx Asthma: No Hx COPD: No - Surgical History Past Surgical History?: Yes Hx Pacemaker: No Hx Internal Defibrillator: No Additional Surgical History: Pelvic Fx, Knot on chest - Social History Smoking Status: Former Smoker Substance Use Type: Methamphetamines - Medications Home Medications: Home Medications Medication Instructions Recorded Confirmed Last Taken Type Apixaban [Eliquis starter pack] 5 mg PO BID #60 tab.ds.pk 06/06/20 Unknown Rx Aspirin EC [Ecotrin] 325 mg PO QDAY #100 tablet 06/06/20 Unknown Rx Furosemide [Lasix TAB] 40 mg PO QDAY 30 Days #30 tablet 06/06/20 Unknown Rx Potassium Chloride [K-Dur] 10 meq PO QDAY #30 tablet 06/06/20 Unknown Rx Spironolactone [Aldactone] 25 mg PO QDAY #30 tablet 06/06/20 Unknown Rx carvediloL [Coreg] 12.5 mg PO BID #60 06/06/20 Unknown Rx carvediloL [Coreg] 12.5 mg PO BID #60 tablet 06/06/20 Unknown Rx ED Physical Exam - General Limitations: No Limitations General appearance: alert, in no apparent distress - Head Head exam: Present: atraumatic, normocephalic - Eye Eye exam: Present: normal appearance, PERRL, EOMI - ENT ENT exam: Present: mucous membranes moist - Neck Neck exam: Present: normal inspection - Respiratory Respiratory exam: Present: normal lung sounds bilaterally. Absent: respiratory distress - Cardiovascular Cardiovascular Exam: Present: regular rate, normal rhythm. Absent: systolic murmur, diastolic murmur, rubs, gallop - GI/Abdominal GI/Abdominal exam: Present: soft, normal bowel sounds. Absent: distended, tenderness - Rectal Rectal exam: Present: deferred - Extremities Exam Extremities exam: Present: normal inspection - Back Exam Back exam: Present: normal inspection - Neurological Exam Neurological exam: Present: alert, oriented X3, CN II-XII intact. Absent: motor sensory deficit - Psychiatric Psychiatric exam: Present: normal affect, normal mood - Skin Skin exam: Present: warm, dry, intact, normal color. Absent: rash ED Course Vital Signs 06/12/20 06/12/20 06/12/20 13:05 16:54 17:54 Pulse Rate 92 H 91 H Respiratory 20 16 Rate Blood Pressure 82/40 112/77 [Right] O2 Sat by Pulse 100 99 Oximetry ED Medical Decision Making - Lab Data Result diagrams: 06/12/20 16: Lab Results 06/12/20 06/12/20 06/12/20 Range/Units 16:21 16:21 16:21 WBC 6.7 (4.5-11.0) K/mm3 RBC 4.80 (3.65-5.03) M/mm3 Hgb 13.2 (11.8-15.2) gm/dl Hct 40.3 (35.5-45.6) % MCV 84 (84-94) fl MCH 28 (28-32) pg MCHC 33 (32-34) % RDW 15.4 H (13.2-15.2) % Plt Count 300 (140-440) K/mm3 PT 14.8 (12.2-14.9) Sec. INR 1.18 H (0.87-1.13) NT-Pro-B Natriuret Pep 3491 H (0-900) pg/mL - EKG Data -: EKG Interpreted by Me EKG shows normal: sinus rhythm Rate: normal - Radiology Data Radiology results: report reviewed - Medical Decision Making Discussed results with patient Patient is orthostatic positive Admitting physician will follow results of CMP Mild IV Hydration given Critical care attestation.: If time is entered above; I have spent that time in minutes in the direct care of this critically ill patient, excluding procedure time. ED Disposition Clinical Impression: Orthostasis, Dizziness Disposition: OP ADMIT IP TO THIS HOSP Is pt being admited?: Yes Does the pt Need Aspirin: No Condition: Fair Referrals: PRIMARY CARE, [Primary Care Provider] - 3-5 Days
[2020-06-12] MEDS ORDERED: SODIUM CHLORIDE 0.9% 1000 ML 1,000 ML IV ONE (19:08)
[2020-06-12 20:04] LABS: Band Neutrophils # (Manual) 0.2 K/mm3; Total Cells Counted 100
[2020-06-12 20:05] LABS: Giant Platelets Rare
[2020-06-12 20:06] LABS: Ovalocytes Rare; Platelet Estimate Consistent w Auto
[2020-06-13] MEDS: carvediloL 6.25 MG TAB PO SCH ×2 (00:02→11:42)
[2020-06-13] MEDS: APIXABAN 5 MG TAB PO SCH ×2 (00:06→11:41)
--- NOTE | 2020-06-13 06:14 | History and Physical Report ---
History of Present Illness Date of examination: 06/12/20 Date of admission: 06/12/20 19:16 Chief complaint: Increasing shortness of breath since a.m. History of present illness: 49-year-old male recently discharged on june after being treated for right pulmonary embolism, cardiomyopathy and congestive heart failure and hypertension comes in for shortness of breath and feeling dizzy and also the room was spinning while standing. Patient did not want to come in but came because it was mild call the EMS. Patient has orthopnea. Patient has LifeVest. No chest pain. His Coreg was increased from 6.25-12.5 recently. No exacerbating or relieving factors. Letter is being charged. - Past Medical History Previous Medical History?: Yes --Hypertension: Yes --Congestive Heart Failure: Yes --Acute PE 10 days ago - Surgical History Past Surgical History?: Yes Additional Surgical History: Pelvic Fx, Knot on chest - Social History Smoking Status: Former Smoker Substance Use Type: Methamphetamines - Medications Home Medications: Home Medications Medication Instructions Recorded Confirmed Last Taken Type Apixaban [Eliquis starter pack] 5 mg PO BID #60 tab.ds.pk 06/06/20 Unknown Rx Aspirin EC [Ecotrin] 325 mg PO QDAY #100 tablet 06/06/20 Unknown Rx Furosemide [Lasix TAB] 40 mg PO QDAY 30 Days #30 tablet 06/06/20 Unknown Rx Potassium Chloride [K-Dur] 10 meq PO QDAY #30 tablet 06/06/20 Unknown Rx Spironolactone [Aldactone] 25 mg PO QDAY #30 tablet 06/06/20 Unknown Rx carvediloL [Coreg] 12.5 mg PO BID #60 06/06/20 Unknown Rx carvediloL [Coreg] 12.5 mg PO BID #60 tablet 06/06/20 Unknown Rx Review of Systems ROS: Stated complaint: WEAKNESS,DIZZINESS Other details as noted in HPI Comment: All other systems reviewed and negative Constitutional: denies: chills, fever Eyes: denies: eye pain, eye discharge, vision change ENT: denies: ear pain, throat pain Respiratory: denies: cough, shortness of breath, wheezing Cardiovascular: denies: chest pain, palpitations Endocrine: no symptoms reported Gastrointestinal: denies: abdominal pain, nausea, diarrhea Genitourinary: denies: urgency, dysuria Musculoskeletal: denies: back pain, joint swelling, arthralgia Skin: denies: rash, lesions Neurological: denies: headache, weakness, paresthesias Psychiatric: denies: anxiety, depression Hematological/Lymphatic: denies: easy bleeding, easy bruising Medications and Allergies Allergies Allergy/AdvReac Type Severity Reaction Status Date / Time No Known Allergies Allergy Verified 05/09/20 07:26 Home Medications Medication Instructions Recorded Confirmed Last Taken Type Apixaban [Eliquis starter pack] 5 mg PO BID #60 tab.ds.pk 06/06/20 Unknown Rx Aspirin EC [Ecotrin] 325 mg PO QDAY #100 tablet 06/06/20 Unknown Rx Furosemide [Lasix TAB] 40 mg PO QDAY 30 Days #30 tablet 06/06/20 Unknown Rx Potassium Chloride [K-Dur] 10 meq PO QDAY #30 tablet 06/06/20 Unknown Rx Spironolactone [Aldactone] 25 mg PO QDAY #30 tablet 06/06/20 Unknown Rx carvediloL [Coreg] 12.5 mg PO BID #60 06/06/20 Unknown Rx carvediloL [Coreg] 12.5 mg PO BID #60 tablet 06/06/20 Unknown Rx Active Meds: Active Medications Apixaban (Apixaban 5 Mg Tab) 5 mg PO BID [facility] Last Admin: 06/13/20 00:06 Dose: 5 mg Documented by: Aspirin (Aspirin Ec 325 Mg Tab) 325 mg PO QDAY [facility] Carvedilol (Carvedilol 6.25 Mg Tab) 6.25 mg PO BID [facility] Last Admin: 06/13/20 00:02 Dose: Not Given Documented by: Furosemide (Furosemide 40 Mg Tab) 40 mg PO QDAY [facility] Potassium Chloride (Potassium Chloride Er 10 Meq Tab) 10 meq PO QDAY [facility] Spironolactone (Spironolactone 25 Mg Tab) 25 mg PO QDAY [facility] Exam - Constitutional Vitals: Temp Pulse Resp BP Pulse Ox 97.8 F 91 H 20 101/71 98 06/13/20 04:59 06/13/20 04:59 06/13/20 04:59 06/13/20 04:59 06/13/20 04:59 General appearance: Present: mild distress, well-nourished - EENT Eyes: Present: PERRL ENT: hearing intact, clear oral mucosa - Neck Neck: Present: supple, normal ROM - Respiratory Respiratory effort: normal Respiratory: bilateral: CTA - Cardiovascular Heart rate: 78 Rhythm: regular Heart Sounds: Present: S1 & S2. Absent: rub, click - Extremities Extremities: pulses symmetrical, No edema Peripheral Pulses: within normal limits - Abdominal General gastrointestinal: Present: soft, non-tender, non-distended, normal bowel sounds Male genitourinary: Present: normal - Integumentary Integumentary: Present: clear, warm, dry - Musculoskeletal Musculoskeletal: gait normal, strength equal bilaterally - Psychiatric Psychiatric: appropriate mood/affect, intact judgment & insight - Neurologic Neurologic: CNII-XII intact, moves all extremities HEART Score - HEART Score History: Moderately suspicious Age: 45-65 Risk factors: 1-2 risk factors Troponin: < normal limit - Critical Actions Critical Actions: 0-3 pts:0.9-1.7%risk of adverse cardiac event.Candidate for discharge Results - Labs CBC & Chem 7: 06/12/20 16:21 Labs: Laboratory Last Values WBC 6.7 K/mm3 (4.5-11.0) 06/12/20 16:21 RBC 4.80 M/mm3 (3.65-5.03) 06/12/20 16:21 Hgb 13.2 gm/dl (11.8-15.2) 06/12/20 16:21 Hct 40.3 % (35.5-45.6) 06/12/20 16:21 MCV 84 fl (84-94) 06/12/20 16:21 MCH 28 pg (28-32) 06/12/20 16:21 MCHC 33 % (32-34) 06/12/20 16:21 RDW 15.4 % (13.2-15.2) H 06/12/20 16:21 Plt Count 300 K/mm3 (140-440) 06/12/20 16:21 Add Manual Diff Complete 06/12/20 16:21 Total Counted 100 06/12/20 16:21 Seg Neuts % (Manual) 69.0 % (40.0-70.0) 06/12/20 16:21 Band Neutrophils % 3.0 % 06/12/20 16:21 Lymphocytes % (Manual) 23.0 % (13.4-35.0) 06/12/20 16:21 Monocytes % (Manual) 3.0 % (0.0-7.3) 06/12/20 16:21 Eosinophils % (Manual) 1.0 % (0.0-4.3) 06/12/20 16:21 Basophils % (Manual) 1.0 % (0.0-1.8) 06/12/20 16:21 Nucleated RBC % Not Reportable 06/12/20 16:21 Seg Neutrophils # Man 4.6 K/mm3 (1.8-7.7) 06/12/20 16:21 Band Neutrophils # 0.2 K/mm3 06/12/20 16:21 Lymphocytes # (Manual) 1.5 K/mm3 (1.2-5.4) 06/12/20 16:21 Abs React Lymphs (Man) 0.0 K/mm3 06/12/20 16:21 Monocytes # (Manual) 0.2 K/mm3 (0.0-0.8) 06/12/20 16:21 Eosinophils # (Manual) 0.1 K/mm3 (0.0-0.4) 06/12/20 16:21 Basophils # (Manual) 0.1 K/mm3 (0.0-0.1) 06/12/20 16:21 Metamyelocytes # 0.0 K/mm3 06/12/20 16:21 Myelocytes # 0.0 K/mm3 06/12/20 16:21 Promyelocytes # 0.0 K/mm3 06/12/20 16:21 Blast Cells # 0.0 K/mm3 06/12/20 16:21 WBC Morphology Not Reportable 06/12/20 16:21 Hypersegmented Neuts Not Reportable 06/12/20 16:21 Hyposegmented Neuts Not Reportable 06/12/20 16:21 Hypogranular Neuts Not Reportable 06/12/20 16:21 Smudge Cells Not Reportable 06/12/20 16:21 Toxic Granulation Not Reportable 06/12/20 16:21 Toxic Vacuolation Not Reportable 06/12/20 16:21 Dohle Bodies Not Reportable 06/12/20 16:21 Pelger-Huet Anomaly Not Reportable 06/12/20 16:21 Jun Rods Not Reportable 06/12/20 16:21 Platelet Estimate Consistent w auto 06/12/20 16:21 Clumped Platelets Not Reportable 06/12/20 16:21 Plt Clumps, EDTA Not Reportable 06/12/20 16:21 Large Platelets Not Reportable 06/12/20 16:21 Giant Platelets Rare 06/12/20 16:21 Platelet Satelliting Not Reportable 06/12/20 16:21 Plt Morphology Comment Not Reportable 06/12/20 16:21 RBC Morphology Not Reportable 06/12/20 16:21 Dimorphic RBCs Not Reportable 06/12/20 16:21 Polychromasia Not Reportable 06/12/20 16:21 Hypochromasia Not Reportable 06/12/20 16:21 Poikilocytosis Not Reportable 06/12/20 16:21 Anisocytosis Not Reportable 06/12/20 16:21 Microcytosis Not Reportable 06/12/20 16:21 Macrocytosis Not Reportable 06/12/20 16:21 Spherocytes Not Reportable 06/12/20 16:21 Pappenheimer Bodies Not Reportable 06/12/20 16:21 Sickle Cells Not Reportable 06/12/20 16:21 Target Cells Not Reportable 06/12/20 16:21 Tear Drop Cells Not Reportable 06/12/20 16:21 Ovalocytes Rare 06/12/20 16:21 Helmet Cells Not Reportable 06/12/20 16:21 Vera-Alanreed Bodies Not Reportable 06/12/20 16:21 Spring Rings Not Reportable 06/12/20 16:21 [place] Cells Not Reportable 06/12/20 16:21 Bite Cells Not Reportable 06/12/20 16:21 Crenated Cell Not Reportable 06/12/20 16:21 Elliptocytes Not Reportable 06/12/20 16:21 Acanthocytes (Spur) Not Reportable 06/12/20 16:21 Rouleaux Not Reportable 06/12/20 16:21 Hemoglobin C Crystals Not Reportable 06/12/20 16:21 Schistocytes Not Reportable 06/12/20 16:21 Malaria parasites Not Reportable 06/12/20 16:21 Saroj Bodies Not Reportable 06/12/20 16:21 Hem Pathologist Commnt No 06/12/20 16:21 PT 14.8 Sec. (12.2-14.9) 06/12/20 16:21 INR 1.18 (0.87-1.13) H 06/12/20 16:21 NT-Pro-B Natriuret Pep 3491 pg/mL (0-900) H 06/12/20 16:21 Short CBC 06/12/20 Range/Units 16:21 WBC 6.7 (4.5-11.0) K/mm3 Hgb 13.2 (11.8-15.2) gm/dl Hct 40.3 (35.5-45.6) % Plt Count 300 (140-440) K/mm3 - Imaging and Cardiology EKG: report reviewed (Sinus rhythm heart rate of 92/min no acute ST-T wave changes) Raymond/IV: Voiding Method Urinal Assessment and Plan Advance Directives: Yes (Full code) - Patient Problems (1) Acute HFrEF (heart failure with reduced ejection fraction) Current Visit: No Status: Acute Plan to address problem: Started on IV Lasix Patient has orthopnea Recently his echocardiogram showed ejection fraction of 15 to 20% (2) Hypotension Current Visit: Yes Status: Acute Plan to address problem: Mild Coreg decreased from 12.5-6.25 twice daily (3) Pulmonary embolism on long-term anticoagulation therapy Current Visit: Yes Status: Acute Plan to address problem: Had recent pulmonary embolism on 06/04/2020 Patient started on and then bridged to Eliquis at the time of discharge (4) Hypertension Current Visit: Yes Status: Chronic Plan to address problem: Continue antihypertensives Coreg decreased from 12.5-6.25 twice daily (5) DVT prophylaxis Current Visit: No Status: Acute Plan to address problem: On heparin and GI prophylaxis
--- NOTE | 2020-06-13 07:29 | Progress Note ---
Assessment and Plan Assessment and plan: 1) Acute HFrEF (heart failure with reduced ejection fraction) Current Visit: No Status: Acute Plan to address problem: Started on IV Lasix Patient has orthopnea Recently his echocardiogram showed ejection fraction of 15 to 20% Chronic acquired pneumonia -Chest x-ray was significant for right pleural effusion with right lower lobe opacity -I started the patient on IV Rocephin and p.o. azithromycin (2) Hypotension Current Visit: Yes Status: Acute Plan to address problem: Mild Coreg decreased from 12.5-6.25 twice daily (3) Pulmonary embolism on long-term anticoagulation therapy Current Visit: Yes Status: Acute Plan to address problem: Had recent pulmonary embolism on 06/04/2020 Patient started on and then bridged to Eliquis at the time of discharge (4) Hypertension Current Visit: Yes Status: Chronic Plan to address problem: Continue antihypertensives Coreg decreased from 12.5-6.25 twice daily (5) DVT prophylaxis Current Visit: No Status: Acute Plan to address problem: On heparin and GI prophylaxis We will do Covid test Disposition; patient can be discharged home if Covid test is negative. History Interval history: Patient was seen and evaluated this morning Patient did not have any complaints He is feeling okay today No nursing issues reported overnight Hospitalist Physical - Physical exam Narrative exam: Not in cardiopulmonary distress. The patient appeared well nourished and normally developed. Vital signs as documented. Head exam is unremarkable. No scleral icterus . Neck is without jugular venous distension, thyromegaly, or carotid bruits. Lungs are clear to auscultation. Cardiac exam reveals regular rate and Rhythm. Abdominal exam reveals normal bowel sounds, nontender, no organomegaly. Extremities are nonedematous and both femoral and pedal pulses are normal. SPORTS ATTORNEY: Alert and oriented 3. No focal weakness. - Constitutional Vitals: Temp Pulse Resp BP Pulse Ox 97.8 F 91 H 20 101/71 98 06/13/20 04:59 06/13/20 04:59 06/13/20 04:59 06/13/20 04:59 06/13/20 04:59 General appearance: Present: mild distress, well-nourished HEART Score - HEART Score Age: 45-65 Risk factors: 1-2 risk factors Troponin: < normal limit - Critical Actions Critical Actions: 0-3 pts:0.9-1.7%risk of adverse cardiac event.Candidate for discharge Results - Labs CBC & Chem 7: 06/12/20 16:21 Labs: Laboratory Last Values WBC 6.7 K/mm3 (4.5-11.0) 06/12/20 16:21 RBC 4.80 M/mm3 (3.65-5.03) 06/12/20 16:21 Hgb 13.2 gm/dl (11.8-15.2) 06/12/20 16:21 Hct 40.3 % (35.5-45.6) 06/12/20 16:21 MCV 84 fl (84-94) 06/12/20 16:21 MCH 28 pg (28-32) 06/12/20 16:21 MCHC 33 % (32-34) 06/12/20 16:21 RDW 15.4 % (13.2-15.2) H 06/12/20 16:21 Plt Count 300 K/mm3 (140-440) 06/12/20 16:21 Add Manual Diff Complete 06/12/20 16:21 Total Counted 100 06/12/20 16:21 Seg Neuts % (Manual) 69.0 % (40.0-70.0) 06/12/20 16:21 Band Neutrophils % 3.0 % 06/12/20 16:21 Lymphocytes % (Manual) 23.0 % (13.4-35.0) 06/12/20 16:21 Monocytes % (Manual) 3.0 % (0.0-7.3) 06/12/20 16:21 Eosinophils % (Manual) 1.0 % (0.0-4.3) 06/12/20 16:21 Basophils % (Manual) 1.0 % (0.0-1.8) 06/12/20 16:21 Nucleated RBC % Not Reportable 06/12/20 16:21 Seg Neutrophils # Man 4.6 K/mm3 (1.8-7.7) 06/12/20 16:21 Band Neutrophils # 0.2 K/mm3 06/12/20 16:21 Lymphocytes # (Manual) 1.5 K/mm3 (1.2-5.4) 06/12/20 16:21 Abs React Lymphs (Man) 0.0 K/mm3 06/12/20 16:21 Monocytes # (Manual) 0.2 K/mm3 (0.0-0.8) 06/12/20 16:21 Eosinophils # (Manual) 0.1 K/mm3 (0.0-0.4) 06/12/20 16:21 Basophils # (Manual) 0.1 K/mm3 (0.0-0.1) 06/12/20 16:21 Metamyelocytes # 0.0 K/mm3 06/12/20 16:21 Myelocytes # 0.0 K/mm3 06/12/20 16:21 Promyelocytes # 0.0 K/mm3 06/12/20 16:21 Blast Cells # 0.0 K/mm3 06/12/20 16:21 WBC Morphology Not Reportable 06/12/20 16:21 Hypersegmented Neuts Not Reportable 06/12/20 16:21 Hyposegmented Neuts Not Reportable 06/12/20 16:21 Hypogranular Neuts Not Reportable 06/12/20 16:21 Smudge Cells Not Reportable 06/12/20 16:21 Toxic Granulation Not Reportable 06/12/20 16:21 Toxic Vacuolation Not Reportable 06/12/20 16:21 Dohle Bodies Not Reportable 06/12/20 16:21 Pelger-Huet Anomaly Not Reportable 06/12/20 16:21 Jun Rods Not Reportable 06/12/20 16:21 Platelet Estimate Consistent w auto 06/12/20 16:21 Clumped Platelets Not Reportable 06/12/20 16:21 Plt Clumps, EDTA Not Reportable 06/12/20 16:21 Large Platelets Not Reportable 06/12/20 16:21 Giant Platelets Rare 06/12/20 16:21 Platelet Satelliting Not Reportable 06/12/20 16:21 Plt Morphology Comment Not Reportable 06/12/20 16:21 RBC Morphology Not Reportable 06/12/20 16:21 Dimorphic RBCs Not Reportable 06/12/20 16:21 Polychromasia Not Reportable 06/12/20 16:21 Hypochromasia Not Reportable 06/12/20 16:21 Poikilocytosis Not Reportable 06/12/20 16:21 Anisocytosis Not Reportable 06/12/20 16:21 Microcytosis Not Reportable 06/12/20 16:21 Macrocytosis Not Reportable 06/12/20 16:21 Spherocytes Not Reportable 06/12/20 16:21 Pappenheimer Bodies Not Reportable 06/12/20 16:21 Sickle Cells Not Reportable 06/12/20 16:21 Target Cells Not Reportable 06/12/20 16:21 Tear Drop Cells Not Reportable 06/12/20 16:21 Ovalocytes Rare 06/12/20 16:21 Helmet Cells Not Reportable 06/12/20 16:21 [place] Bodies Not Reportable 06/12/20 16:21 [place] Rings Not Reportable 06/12/20 16:21 Litzy Cells Not Reportable 06/12/20 16:21 Bite Cells Not Reportable 06/12/20 16:21 Crenated Cell Not Reportable 06/12/20 16:21 Elliptocytes Not Reportable 06/12/20 16:21 Acanthocytes (Spur) Not Reportable 06/12/20 16:21 Rouleaux Not Reportable 06/12/20 16:21 Hemoglobin C Crystals Not Reportable 06/12/20 16:21 Schistocytes Not Reportable 06/12/20 16:21 Malaria parasites Not Reportable 06/12/20 16:21 Saroj Bodies Not Reportable 06/12/20 16:21 Hem Pathologist Commnt No 06/12/20 16:21 PT 14.8 Sec. (12.2-14.9) 06/12/20 16:21 INR 1.18 (0.87-1.13) H 06/12/20 16:21 NT-Pro-B Natriuret Pep 3491 pg/mL (0-900) H 06/12/20 16:21 Raymond/IV: Voiding Method Urinal Active Medications - Current Medications Current Medications: Generic Name Dose Route Start Last Admin Trade Name Freq PRN Reason Stop Dose Admin Apixaban 5 mg 06/12/20 23:00 06/13/20 00:06 Apixaban 5 Mg Tab PO 5 mg BID ELMER Administration Aspirin 325 mg 06/13/20 10:00 Aspirin Ec 325 Mg Tab PO QDAY ELMER Carvedilol 6.25 mg 06/12/20 23:00 06/13/20 00:02 Carvedilol 6.25 Mg Tab PO Not Given BID ELMER Furosemide 40 mg 06/13/20 10:00 Furosemide 40 Mg Tab PO QDAY ELMER Potassium Chloride 10 meq 06/13/20 10:00 Potassium Chloride Er 10 Meq Tab PO QDAY ELMER Spironolactone 25 mg 06/13/20 10:00 Spironolactone 25 Mg Tab PO QDAY ELMER
[2020-06-13] MEDS ORDERED: cefTRIAXone/NS 1 GM/50 ML 1 GM/50 ML BAG IV SCH (08:00)
[2020-06-13] MEDS ORDERED: ASPIRIN EC 325 MG TAB PO SCH (10:00)
[2020-06-13] MEDS ORDERED: SPIRONOLACTONE 25 MG TAB PO SCH (10:00)
[2020-06-13] MEDS ORDERED: AZITHROMYCIN 250 MG TAB PO SCH (10:00)
[2020-06-13] MEDS ORDERED: FUROSEMIDE 40 MG TAB PO SCH (10:00)
[2020-06-13] MEDS ORDERED: POTASSIUM CHLORIDE ER 10 MEQ TAB PO SCH (10:00)
--- NOTE | 2020-06-13 11:33 | Discharge Summary ---
Providers - Providers Date of Admission: 06/12/20 19:16 Date of discharge: 06/13/20 Attending physician: ALYSSA TAN MD Primary care physician: SALES AND MARKETING ASSISTANT Hospitalization Reason for admission: Dizziness, heart failure with reduced ejection fraction Condition: Stable Pertinent studies: Chest x-ray Hospital course: History of present illness: 49-year-old male recently discharged on june after being treated for right pulmonary embolism, cardiomyopathy and congestive heart failure and hypertension comes in for shortness of breath and feeling dizzy and also the room was spinning while standing. Patient did not want to come in but came because it was mild call the EMS. Patient has orthopnea. Patient has LifeVest. No chest pain. His Coreg was increased from 6.25-12.5 recently. No exacerbating or relieving factors. Letter is being charged. Hospital course Patient was seen and evaluated this morning. Patient's dizziness resolved. Yesterday his blood glucose was 58 and patient said he was not eating well. Blood pressure was low and this is likely due to carvedilol and his carvedilol was decreased from 12.5-6.25. Chest x-ray showed right-sided pleural effusion with right lower lobe opacity. Patient does not have any fever, shortness of breath or chest pain but I put him empirically on IV ceftriaxone and azithromycin. Patient is doing well and patient discharged with carvedilol 6.25 mg twice daily, p.o. Keflex and azithromycin. Patient was hemodynamically stable at the time of discharge. Patient said he has follow-up appointment with his ribbon cutter at [facility] tomorrow. I advised the patient to keep his appointment and further work-up as per cardiology. Patient will continue with Eliquis and other appropriate medications. Disposition: DC-01 TO HOME OR SELFCARE Time spent for discharge: 25 minutes - Discharge Diagnoses (1) Dizziness Status: Acute (2) Hypotension Status: Acute (3) Pulmonary embolism on long-term anticoagulation therapy Status: Acute (4) Acute HFrEF (heart failure with reduced ejection fraction) Status: Acute (5) Pneumonia Status: Acute Core Measure Documentation - Palliative Care Palliative Care/ Comfort Measures: Not Applicable - Core Measures Any of the following diagnoses?: none Exam - Physical Exam Narrative exam: Not in cardiopulmonary distress. The patient appeared well nourished and normally developed. Vital signs as documented. Head exam is unremarkable. No scleral icterus . Neck is without jugular venous distension, thyromegaly, or carotid bruits. Lungs are clear to auscultation. Cardiac exam reveals regular rate and Rhythm. Abdominal exam reveals normal bowel sounds, nontender, no organomegaly. Extremities are nonedematous and both femoral and pedal pulses are normal. FLOWER STRIPPER: Alert and oriented 3. No focal weakness. - Constitutional Vitals: Temp Pulse Resp BP Pulse Ox 97.8 F 91 H 20 101/71 98 06/13/20 04:59 06/13/20 04:59 06/13/20 04:59 06/13/20 04:59 06/13/20 04:59 Plan Activity: no restrictions Weight Bearing Status: Full Weight Bearing Diet: low salt Additional Instructions: Patient has an appointment with [employer] [facility] prevention specialist tomorrow Follow up with: PRIMARY CARE, [Primary Care Provider] - 3-5 Days Prescriptions: cephALEXin [Keflex] 500 mg PO Q8HR #15 cap Azithromycin [Zithromax TAB] 250 mg PO QDAY #4 tablet
[2020-06-13 17:44] VITALS: BP 108/78
== END 2020-06-13 18:00 | disposition home or self-care (01) | DRG 175 ==
LOC: ED 13:02 → 3A 19:16
PROVIDERS: ADMIT Internal Medicine; ATTEND Internal Medicine
DX: I26.99 Other pulmonary embolism without acute cor pulmonale (principal); I50.21 Acute systolic (congestive) heart failure; J18.9 Pneumonia, unspecified organism; I42.9 Cardiomyopathy, unspecified; I11.0 Hypertensive heart disease with heart failure; Z20.822 Contact with and (suspected) exposure to COVID-19; I95.1 Orthostatic hypotension; Z87.891 Personal history of nicotine dependence; Z79.899 Other long term (current) drug therapy; Z79.82 Long term (current) use of aspirin
CPT/HCPCS: 70450; 71045; 83880; 85025; 85610; 87116; 93005; 96360; 99406; G0378; J0696; J7030; U0003